=== PATIENT | female | born 1955 | race Caucasian/White ===

== ENCOUNTER 2023-08-24 12:55 | Inpatient (IN) | payer MEDICARE, SELFPAY ==
[2023-08-24 13:01] VITALS: BP 111/73; BP 114/64; PULSE 67; PULSE 73; RESP 16; TEMP 36.8; O2SAT 94; O2SAT 97; BMI 23.0
--- NOTE | 2023-08-24 13:10 | ED_ITS ---
HPI - Psych General Chief Complaint: Psychiatric Symptoms Stated Complaint: SEC 12,RECENT SI ATTEMPT,CALM/COOP PER EMS Time Seen by Provider: 08/24/23 13:01 Source: patient Mode of arrival: EMS Limitations: no limitations History of Present Illness HPI Narrative: Comes to the emergency room on a Section 12 from home. Patient's neighbors called EMS, patient has no heat at home except for space heaters, patient is not able to obtain food for herself. Patient had a suicidal attempt approximately 2 weeks ago. Patient states that she turned on the gas stove on, and was hoping that she would . Patient states that her neighbors keep checking on her, they were worried about her and therefore they called the ambulance. At this time, patient states that she does have suicidal ideation , no HI. Patient denied trying to hurt herself today or in the last few days. Related Data Allergies Allergy/AdvReac Type Severity Reaction Status Date / Time No Known Allergies Allergy Verified 08/24/23 13:03 Review of Systems 2 Review of Systems: Constitutional : No Weight loss, No Fever, No Chills, No Night Sweats, No Fatigue, No Malaise ENT/Mouth : No Hearing loss, No Ear Pain, No Nasal Congestion, No Sinus Pain, No Hoarseness, No sore throat, No Rhinorrhea, No Swallowing Difficulty Eyes: No Eye Pain, No Swelling, No Redness, No Foreign Body, No Discharge, No Vision Changes Cardiovascular : No Chest Pain, No SOB, No Dyspnea on Exertion, No Orthopnea, No Edema, No Palpitations Respiratory : No Cough, No Sputum, No Wheezing, No Smoke Exposure, No Dyspnea Gastrointestinal : No Nausea, No Vomiting, No Diarrhea, No Constipation, No abdominal Pain, No Hematochezia, No Melena Genitourinary : no irregular bleeding, No Dysuria, No Urinary Frequency, No Hematuria, No Urinary Incontinence, No Urgency, No Flank Pain, No Urinary Flow Changes, No Hesitancy Musculoskeletal : No joint pain, No Myalgias, No Joint Swelling Skin : No Skin Lesions, No rash Neuro : No Weakness, No Numbness, No Paresthesias, No Loss of Consciousness, No Dizziness, No Headache Psych : No Anxiety/Panic, depressed, complaining of SI, no HI, social issues: No heat in her place, unable to find food for herself Heme/Lymph: No Bruising, No Bleeding,No Lymphadenopathy Endocrine : No Polyuria, No Polydipsia, No Temperature Intolerance [facility] Past Medical History Medical History (Updated 08/24/23 @ 15:13 by Rosa Maria Gilliland MD) Suicide attempt Social History Social History Advance Directives: No Advance Directives Information Provided: No Physical Exam 2 Vital Signs: Vital Signs: Last Vital Signs Temp 98.3 F 08/24/23 13:01 Pulse 73 08/24/23 13:01 Resp 16 08/24/23 13:01 BP 111/73 08/24/23 13:01 Pulse Ox 94 08/24/23 13:01 O2 Del Method Room Air 08/24/23 13:01 BMI result Body Mass Index 23.0 Const: Other: Appearance: Alert. Oriented X3. No acute distress. Eyes: Pupils equal, round and reactive to light. ENT: Pharynx normal. Neck: Normal inspection. Neck supple. No lymph nodes noted. No crepitus CVS: Normal heart rate and rhythm. Pulses normal. Normal S1 and S2 Respiratory: No respiratory distress. Breath sounds normal. No Wheezing. No rales Abdomen: Soft and nontender. No rigidity. No distention. Skin: Skin warm and dry. Normal skin color. Normal skin turgor. Extremities: No lower extremity edema. No Lacerations. No Rash Neuro: Oriented X 3. No motor deficit. No sensory deficit. Moving all extremities. No slurred speech. CN 2 through 12 grossly intact Psych: calm, cooperative, normal affect Course Course Course Narrative: -all of patient's labs pending -patient is on a Section 12 started out in the community -care team consult pending Medical Decision Making Medical Decision Making MDM Narrative: -15:12: Of patient's blood work pending. -patient's urinalysis positive for UTI, given p.o. cefuroxime. Differential Diagnosis Differential Diagnoses: The differential diagnosis associated with the presentation includes (Anxiety, depression, suicidal ideation) Admission/Observation Consideration of admission/observation: Escalation of care including admission/observation considered (Patient is on a Section 12, disposition pending on care team) Lab Data 08/24/23 14:53 08/24/23 14:53 Labs: Lab Results 08/24/23 Range/Units 14:53 Urine Color Yellow Urine Appearance Cloudy Urine pH 6.0 (5.0-9.0) Ur Specific [place] 1.015 (1.005-1.025) Urine Protein Negative (Neg-Trace) mg/dL Urine Glucose (UA) Negative (Negative) mg/dL Urine Ketones Negative (Negative) mg/dL Urine Blood Small (1+) H (Negative) Urine Nitrite Positive H (Negative) Ur Leukocyte Esterase Large (3+) H (Negative) Urine Opiates Screen Not Detected (Not Detect) Urine Fentanyl Screen Not Detected (Not Detect) Ur Barbiturates Screen Not Detected (Not Detect) Ur Phencyclidine Scrn Not Detected (Not Detect) Ur Amphetamines Screen Not Detected (Not Detect) U Benzodiazepines Scrn Not Detected (Not Detect) Urine Cocaine Screen Not Detected (Not Detect) U Marijuana (THC) Screen POSITIVE H (Not Detect) Discharge Plan Discharge Clinical Impression: Suicidal ideation, Urinary tract infection Patient Disposition: Still a Patient
[2023-08-24 15:00] LABS: MANUAL DIFF FLAG NO
[2023-08-24 15:03] LABS: Appearance Urine Cloudy; Color Urine Yellow; Glucose Urine UA Negative (Negative); Leukocyte Esterase Urine Large (3+) (Negative); Nitrite Urine Positive (Negative); Specific Gravity - Urine 1.015 (1.005-1.025); UMIC TRIGGER UACC YES; Urine Blood Small (1+) (Negative); Urine Ketones Negative (Negative); Urine Protein Negative (Neg-Trace)
[2023-08-24 15:09] LABS: Amphetamine Screen Urine Not Detected (Not Detect); Bacteria Urine 4+ (None Seen); Barbiturates, Urine Not Detected (Not Detect); Benzodiazepines Screen Urine Not Detected (Not Detect); Cannabinoid Screen Urine POSITIVE (Not Detect); Cocaine Screen Urine Not Detected (Not Detect); Fentanyl, urine Not Detected (Not Detect); Hyaline Casts Urine 0-2 /LPF (0-2); Opiate Screen Urine Not Detected (Not Detect); Phencyclidine Screen Urine Not Detected (Not Detect); RBC Urine 0-2 /HPF (0-2); UACC Culture Trigger YES; WBC Urine >50 /HPF (0-5)
[2023-08-24 15:12] LABS: Basophils Absolute Auto 0.1 X10*3/uL (0.0-0.2); Basophils Percent Auto 0.9 % (0-2); Eosinophils Absolute Auto 0.2 X10*3/uL (0.0-0.4); Eosinophils Percent Auto 1.9 % (0-4); Hematocrit 37.4 % (37.0-47.0); Hemoglobin 11.6 g/dl (12.0-16.0); Imm Gran Abs Auto 0.04 X10*3/uL (0.00-0.03); Imm Gran Pct Auto 0.4 % (0.0-0.4); Lymphocytes Percent Auto 21.6 % (20-40); Mean Corpuscular Hemoglobin 30.2 pg (27.0-33.0); Mean Corpuscular Volume 97.4 fL (80.0-98.0); Monocytes Absolute Auto 0.7 X10*3/uL (0.1-1.2); Monocytes Percent Auto 7.2 % (2-11); Neutrophils Absolute Auto 6.3 x10*3/uL (2.0-8.3); Platelet Count 384 X10*3/uL (160-400); Red Blood Count 3.84 X10*6/uL (4.20-5.50); Red Cell Distribution Width 12.6 % (11.0-16.0); White Blood Count 9.3 X10*3/uL (4.8-10.8)
[2023-08-24 15:16] LABS: Ethanol < 10 mg/dL
--- NOTE | 2023-08-24 15:16 | PC.NURSE ---
pt calm and cooperative, alert and oriented. reports prior suicide attempt a couple of weeks ago. brought in by EMS on Sec 12 due to unsafe living conditions reported by neighbors including lack of heat, and inability to get food on their own. In Pod pt denies SI at this time. Labs drawn, pending CARE team marisol
[2023-08-24 15:18] LABS: Alanine Aminotransferase 10 U/L (0-31); Albumin Level 3.4 g/dL (3.5-5.0); Alkaline Phosphatase 64 U/L (39-117); Anion Gap 10 (12-20); Aspartate Amino Transferase 18 U/L (5-31); Bilirubin Direct < 0.2 mg/dL (0.0-0.5); Bilirubin Total 0.2 mg/dL (0.0-1.0); Blood Urea Nitrogen 14 mg/dL (9-16); Carbon Dioxide 29 mmol/L (22-29); Chloride 109 mmol/L (96-108); Creatinine Clr Calc Pharmacy 62.6; Estimated Glomerular Filt Rate > 60; Glucose Random 115 mg/dL (60-115); Potassium 4.1 mmol/L (3.3-5.1); Sodium 144 mmol/L (135-145); Total Protein 6.6 g/dL (6.5-8.0)
[2023-08-24] MEDS: cefuroxime axetiL 500 MG TABLET PO ×2 (15:46→20:44)
[2023-08-24 15:58] LABS: Acetaminophen LAB < 3 mcg/mL (<30); Salicylate < 5.0 mg/dL (15-30)
--- NOTE | 2023-08-24 16:42 | ECG_ITS ---
Test Reason : prolonged QT check Blood Pressure : / mmHG Vent. Rate : 060 BPM Atrial Rate : 060 BPM P-R Int : 166 ms QRS Dur : 074 ms QT Int : 416 ms P-R-T Axes : 086 002 067 degrees QTc Int : 416 ms Normal sinus rhythm Normal ECG No previous ECGs available Referred By: Rosa Maria Gilliland Electronically Signed By:Dawit Sanon
--- NOTE | 2023-08-24 17:39 | PC.NURSE ---
pt has been resting in bed this afternoon. Medicated per NOV with ABX for UTI. pt aware of plan. In-patient bed search pending. EKG pending machine availability from Main ED
[2023-08-24 19:11] LABS: COVID-19 Test Negative (Negative); IDNOW Serial# 08D9AD1C
[2023-08-24 20:38] VITALS: BP 107/55; PULSE 63; RESP 18; TEMP 37.1; O2SAT 96
--- NOTE | 2023-08-24 23:25 | PC.NURSE ---
Assumed care of pt at 1900. PT alert and oriented. provided dinner tray at 1999- chopped as ordered. PT denies SI/HI. Medicated as per NOV. Plan of care ongoing
[2023-08-25 05:52] VITALS: BP 104/56; PULSE 61; RESP 16; TEMP 36.4; O2SAT 93
[2023-08-25] MEDS: cefuroxime axetiL 500 MG TABLET PO ×2 (08:10→20:56)
--- NOTE | 2023-08-25 08:27 | PC.NURSE ---
Pt ate breakfast, took medications as prescribed, voices no other concerns at this time. awaiting dispo.
[2023-08-25 09:40] VITALS: BP 120/57; PULSE 66; RESP 18; TEMP 36.7; O2SAT 96
[2023-08-25] MEDS: ARIPiprazole 10 MG TABLET PO ×2 (09:43→20:56)
[2023-08-25] MEDS: Escitalopram Oxalate 10 MG TABLET PO (09:43)
[2023-08-25] MEDS: Apixaban 5 MG TABLET PO ×2 (09:43→20:56)
--- NOTE | 2023-08-25 13:31 | PC.ADMIT ---
Lianet is a 67 year old female that was evaluated for crisis at [facility] at the request of a neighbor. Lianet was admitted to the unit at 09:00 on a 12b for unspecified adjustment disorder and depression. The precipitant of admission consists of Lianet reportedly exhibiting inability to care for herself and her surroundings evidenced by medication non-compliance, unsafe housing, no working toilet or central heat supply, hoarding and short term memory issues. Lianet is alert and oriented to person, place and situation but not time. Affect is pleasant but depressed, she denies hallucinations. Lianet reports her sleep is broken and appetite is good. Lianet reports no substance use but tox is positive for THC. She says that she had a suicide attempt approximately 4 months ago triggered by depression. Physical complaints denied, patient placed on 15 minute checks for safety.
--- NOTE | 2023-08-25 16:58 | P.HPPS_ITS ---
HPI Date of Service: 08/25/23 Chief Complaint: SEC 12,RECENT SI ATTEMPT,CALM/COOP PER EMS Sources of Information: patient interviewed, chart reviewed and crisis/core team assessment reviewed Additional Sources of Information: Willa Casas, [facility], [facility]. [phone] Ext. [phone]. HPI Subjective Notes: Conditional Voluntary Healthcare Proxy: Yes Guardianship: No Medical Problems Affecting Mental Status: Yes (Willa [facility] reports pt has Korsakoff's) Narrative: 67 yo female, section 12A from her home at the request of her neighbor and HCP for inability to care for herself, short term memory loss, medicine noncompliance, not attending follow up appts and living in an unsafe environment. Per Willa Casas [facility] pt's home is unable to be lived in as there is no heat-she is attempting to use space heaters, no electricity, no running water, no working telephone, no bathroom access. Gas has been shut off. Pt has not paid taxes so her town is prepared to auction off the home. They are told if she is found in the home she will be arrested. The home is unclean and corroded batteries have been found in her freezer. Pt was recently hospitalized with Darcy Ca~ 4weeks, about 4 months ago, s/p suicide attempt where she attempted to kill herself using her gas stove. She was found with her face covered by a blanket, with CO2 poisoning. This is reported after she drank 1/2 bottle of whiskey. She was discharged to her friends home but left the home to return to her home. She has no food in the home, is not capable of shopping and is not attending to her ADL's. 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 Pt, who met with caryl Crouch, and Ese Rodriguez RN is pleasant and well engaged in discussion. She reports feeling happy to be here, willing to receive help and suggestions on making her life better. She describes herself as a loner, but does want help with meals and housekeeping. She reports a recent ~40Lb weight loss which was intentional and discussed her recent suicide attempt, stating she felt comfortable to do so. She denies current SI, plan or intent. Past Psychiatric History: IP: Roby~ 2 weeks ago s/p putting her head in her gas stove. OP: None current. Reports hx of therapy several years ago. Med Trials: Affirms SA: Put head in gas stove ~2 weeks ago. Medical Evaluation Reviewed: Yes [facility] Medical History (Updated 08/25/23 @ 17:58 by Gris Guzman, SPUD GRADER) Korsakoff syndrome Alcohol abuse Recurrent major depression-severe Suicide attempt Narrative: L knee pain CVA she thinks in 2021-Eliquis Smoker Shoulder incision where a mole was recently removed Family History: Not reviewed Social History: Born in [place], in 1955. Attended parochial and public schools. Two brothers, both live on the [facility]. States she has spent her life caring for elders through their passing . My brothers did not come to either of my parents funerals . No children. 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 Two dogs, Infidel and Zalet (who are with friends now). Pt enjoys coloring, drawing, writing poetry and dogs of all kinds. Pt reports her friend and neighbor Katina Last is HCP and helps her at home. She asks that we not contact her brothers. Substance History: alcohol, cannabis Trauma History: Not reviewed Diagnostics Vital Signs (24Hr): Vital Signs - 24 hr 08/24/23 20:38 08/25/23 05:52 08/25/23 09:40 Temperature 98.7 F 97.5 F 98.0 F Pulse Rate 63 61 66 Respiratory Rate 18 16 18 Blood Pressure 107/55 L 104/56 L 120/57 L Pulse Oximetry 96 93 96 Oxygen Delivery Method Room Air Room Air Room Air BMI result Body Mass Index 23.0 Labs 08/24/23 14:53 08/24/23 14:53 Labs: Laboratory Results - last 48 hr 08/24/23 08/24/23 14:53 18:44 WBC 9.3 RBC 3.84 L Hgb 11.6 L Hct 37.4 MCV 97.4 MCH 30.2 MCHC 31.0 RDW 12.6 Plt Count 384 MPV 10.0 Immature Gran % (Auto) 0.4 Neut % (Auto) 68.0 Lymph % (Auto) 21.6 Hyde % (Auto) 7.2 Eos % (Auto) 1.9 Baso % (Auto) 0.9 Lymph # (Auto) 2.0 Hyde # (Auto) 0.7 Eos # (Auto) 0.2 Baso # (Auto) 0.1 Abs Immat Gran (auto) 0.04 H Absolute Neuts (auto) 6.3 Absolute Nucleated RBC 0.000 Nucleated RBC % (auto) 0.0 Sodium 144 Potassium 4.1 Chloride 109 H Carbon Dioxide 29 Anion Gap 10 L BUN 14 Creatinine 0.73 Estim Creat Clear Calc 62.6 Estimated GFR > 60 Random Glucose 115 Calcium 9.0 Total Bilirubin 0.2 Direct Bilirubin < 0.2 AST 18 ALT 10 Alkaline Phosphatase 64 Total Protein 6.6 Albumin 3.4 L Urine Color Yellow Urine Appearance Cloudy Urine pH 6.0 Ur Specific [place] 1.015 Urine Protein Negative Urine Glucose (UA) Negative Urine Ketones Negative Urine Blood Small (1+) H Urine Nitrite Positive H Ur Leukocyte Esterase Large (3+) H Urine RBC 0-2 Urine WBC >50 H Ur Squamous Epith Cells 6-10 Urine Bacteria 4+ Hyaline Casts 0-2 Salicylates < 5.0 L Urine Opiates Screen Not Detected Urine Fentanyl Screen Not Detected Acetaminophen < 3 Ur Barbiturates Screen Not Detected Ur Phencyclidine Scrn Not Detected Ur Amphetamines Screen Not Detected U Benzodiazepines Scrn Not Detected Urine Cocaine Screen Not Detected U Marijuana (THC) Screen POSITIVE H Ethyl Alcohol < 10 COVID-19 (GABRIELA) Negative COVID-19 Clin Com See Note Meds/Allergies Meds Home Medications Medication Instructions Recorded Confirmed Type apixaban 5 mg tablet (Eliquis) 5 mg PO BID 08/24/23 08/24/23 History aripiprazole 10 mg tablet 10 mg PO QPM 08/24/23 08/24/23 History escitalopram oxalate 10 mg tablet 10 mg PO DAILY depressive disorder 08/24/23 08/24/23 History trazodone 100 mg tablet 100 mg PO BEDTIME 08/24/23 08/24/23 History Allergies Allergies Allergy/AdvReac Type Severity Reaction Status Date / Time No Known Allergies Allergy Verified 08/24/23 13:03 Mental Status Exam Mental Status Exam Patient Appearance: Fatigued Patient Orientation: Person and Place Level of Consciousness: Alert Patient Behavior: Appropriate, Talkative, Cooperative and Good Eye Contact Mood Description: Calm Affect Description: Calm Ability to Follow Directions: Fair Speech Pattern: Spontaneous Speech Memory Description: Remote Impaired, Episodic Impaired and Recent Impaired Hallucinations: None Delusions: Not Present Thought Process: Disoriented and Slowed Thinking Thought Content: positive for Circumstantial and positive for Suicidal Ideation (denies) Depressive Symptoms: Diff. Making Decisions, Significant Weight Loss, Increased Fatigue and Loss of Energy Judgement: Poor Assessment & Plan Assessment & Plan (1) Recurrent major depression-severe: Status: Acute Code(s): F33.2 - Major depressive disorder, recurrent severe without psychotic features (2) Mild cognitive impairment: Status: Acute Code(s): G31.84 - Mild cognitive impairment of uncertain or unknown etiology Plan 67 yo female, living in an unsafe situation at home without heat, phone, water, electric at times, and unable to care for herself. Suicide attempt via carbon monoxide and whiskey ~4 months ago with a 4 week admit to [facility]. Neighbors called 911 for assistance which pt is willing to accept at this time. Neighbors report pt is not taking meds, not eating, not participating in ADL care and hoarding in the home. As she has not paid taxes the home will be auctioned by the [facility] and she has been informed she is not to be in the home at any time. Plan: CV 15. 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 Guadarrama Connect with OP supports, ?residential care Patient educated on: other Informed Consent: does not understand Reason for continued inpatient stay Substantial Risk for: harm to self, rapid decompensation and med/psych decompensation Statement Statement: I have reviewed the history and physical and performed a pertinent examination on my patient. No changes have occurred unless specified. If the History and Physical was not performed prior to admission, the Hospitalist's service will be consulted for completing the admission physical. Time Spent With Patient Time: Total time managing care of this patient today ____ minutes.
[2023-08-25 18:00] VITALS: BP 127/61; PULSE 66; RESP 18; TEMP 37.1; O2SAT 96
[2023-08-25] MEDS: traZODone HCL 100 MG TABLET PO (20:56)
[2023-08-25] MEDS: Thiamine HCL 100 MG TABLET PO (20:56)
[2023-08-26 08:00] VITALS: BP 111/62; PULSE 67; RESP 16; TEMP 36.4; O2SAT 94
[2023-08-26 08:11] LABS: Glucose, Whole Blood 97 mg/dL (60-115)
[2023-08-26] MEDS: Apixaban 5 MG TABLET PO ×2 (08:34→20:55)
[2023-08-26] MEDS: Folic Acid 1 MG TABLET PO (08:35)
[2023-08-26] MEDS: cefuroxime axetiL 500 MG TABLET PO ×2 (08:35→20:55)
[2023-08-26] MEDS: Escitalopram Oxalate 10 MG TABLET PO (08:35)
[2023-08-26] MEDS: Thiamine HCL 100 MG TABLET PO ×2 (08:35→20:55)
[2023-08-26] MEDS: Multivitamin TABLET 1 TAB PO (08:35)
[2023-08-26 08:42] LABS: Ammonia 33 umol/L (13-55); Estimated Average Glucose 97 mg/dL
[2023-08-26 09:00] LABS: Alanine Aminotransferase 12 U/L (0-31); Alkaline Phosphatase 74 U/L (39-117); Anion Gap 11 (12-20); Aspartate Amino Transferase 18 U/L (5-31); Bilirubin Total 0.3 mg/dL (0.0-1.0); Blood Urea Nitrogen 18 mg/dL (9-16); Calcium 9.8 mg/dL (8.4-10.2); Carbon Dioxide 27 mmol/L (22-29); Chloride 106 mmol/L (96-108); Cholesterol 265 mg/dL (<200); Creatinine Clr Calc Pharmacy 63.5; Estimated Glomerular Filt Rate > 60; Glucose Fasting 94 mg/dL (60-99); HDL Cholesterol 65 mg/dL (>40); Iron 38 mcg/dL (30-160); LDL Cholesterol Calculated 181 mg/dL (<100); Magnesium 2.1 mg/dL (1.6-2.6); Percent Iron Saturation 16 % (15-50); Potassium 4.3 mmol/L (3.3-5.1); Sodium 140 mmol/L (135-145); Total Iron Binding Capacity 236 mcg/dL (228-428); Total Protein 7.8 g/dL (6.5-8.0); Triglycerides 99 mg/dL (<150); Unsaturated Iron Binding 198 ug/dL
[2023-08-26 09:09] LABS: HIV AB/AG Nonreactive (Nonreactive); HIV Num 1 0.05 S/CO (0.00-0.99); Syphilis Screen Nonreactive (Nonreactive)
[2023-08-26 09:23] LABS: Thyroid Stimulating Hormone 1.17 uIU/mL (0.32-4.0); Vitamin D 25-OH Total 28.3 ng/mL (>30)
[2023-08-26 09:24] LABS: Folate 13.2 ng/mL (> or = 4.0); Vitamin B12 585 pg/mL (200-900)
--- NOTE | 2023-08-26 16:23 | P.PNPSI_ITS ---
Subjective Subjective Date of Service: 08/26/23 Reason For Visit: SEC 12,RECENT SI ATTEMPT,CALM/COOP PER EMS Subjective Notes: Conditional Voluntary Healthcare Proxy: No Guardianship: No Medical Problems Affecting Mental Status: No Interim History: Orienting herself to the unit. Enjoyed a visit from [facility] therapy dog. Discussed wanting help with housing, referrals for out patient care and just getting back on track, I am not sure where it all went wrong. Ladi and Jose Espinosa [facility] spoke with HCP Katina Last [phone] who reports she believes pt is unable to make clear decisions regarding her care and states pt admits to this. Katina described some of pt's drinking history, recent suicide attempt and a bad hospital experience with [facility]. Upon discharge, pt was supposed to stay with a friend but convinced her driver recruiter to bring her back to her home. By history, pt has a long history of drinking, beginning at ~age 26, never heavy drinking, however recently she will drink until she passes out. Friends have seen a major exchange operator the past 8 months with pt's cognition- thinking something was terribly wrong and memory was significantly effected. Pt was also having difficulty caring for her two dogs who are now in foster homes. Katina was shocked to learn of the loss of pt's home in 2019-pt was not truthful with her friends about her struggles with the home and Katina believes that she has a court date sometime between 08/31 and 09/08 for this issue. Pt's brothers are estranged. They have been silent when she has asked for help. Pt will need safe housing. Katina believes pt would like to live as close to [place] as possible. She will visit with a copy of HCP on 08/27. MOCA completed at 21. Medication Compliance: Yes Side effects from medications: No Attending Groups: No Review of Systems Acute medical concerns: No Medical Review of Systems: unchanged Review of Systems Review of Systems Yes all other systems are reviewed and are negative Mental Status Exam Mental Status Exam Patient Appearance: Fatigued Patient Orientation: Person and Place Level of Consciousness: Alert Patient Behavior: Appropriate, Talkative, Cooperative and Good Eye Contact Mood Description: Calm Affect Description: Calm Ability to Follow Directions: Fair Speech Pattern: Spontaneous Speech Memory Description: Remote Impaired, Episodic Impaired and Recent Impaired Hallucinations: None Delusions: Not Present Thought Process: Disoriented and Slowed Thinking Thought Content: positive for Circumstantial and positive for Suicidal Ideation (denies) Depressive Symptoms: Diff. Making Decisions, Significant Weight Loss, Increased Fatigue and Loss of Energy Judgement: Poor Diagnostics Vital Signs (24Hr): Vital Signs - 24 hr 08/25/23 18:00 08/26/23 08:00 Temperature 98.7 F 97.5 F Pulse Rate 66 67 Respiratory Rate 18 16 Blood Pressure 127/61 111/62 Pulse Oximetry 96 94 Oxygen Delivery Method Room Air Room Air BMI result Body Mass Index 23.0 Labs 08/24/23 14:53 08/26/23 08:13 Labs: Laboratory Results - last 48 hr 08/24/23 08/26/23 08/26/23 18:44 07:54 08:13 Sodium 140 Potassium 4.3 Chloride 106 Carbon Dioxide 27 Anion Gap 11 L BUN 18 H Creatinine 0.72 Estim Creat Clear Calc 63.5 Estimated GFR > 60 POC Glucose 97 Fasting Glucose 94 Estimat Average Glucose 97 Hemoglobin A1c % 5.0 Calcium 9.8 D Magnesium 2.1 Iron 38 TIBC 236 % Saturation 16 Unsat Iron Binding 198 Total Bilirubin 0.3 AST 18 ALT 12 Alkaline Phosphatase 74 Ammonia 33 Total Protein 7.8 Albumin 4.0 Triglycerides 99 Cholesterol 265 H LDL Cholesterol, Calc 181 H HDL Cholesterol 65 Vitamin B12 585 25-OH Vitamin D Total 28.3 L Folate 13.2 TSH 1.17 T.pallidum Ab (EIA) Nonreactive COVID-19 (GABRIELA) Negative COVID-19 Clin Com See Note HIV 1&2 Ab/P24 Ag 4thGn Nonreactive Medications Medications Current Medications Acetaminophen (Acetaminophen 325 Mg Tablet) 650 mg PO Q6H PRN PRN Reason: Headache/Pain Mild Scale (1-3) Al Hydroxide/Mg Hydroxide (Magnesium Hydrox/Alum Hydrox 30 Ml Oral.Susp) 30 ml PO Q6H PRN PRN Reason: Heartburn/Nausea Apixaban (Apixaban 5 Mg Tablet) 5 mg PO BID [facility] Last Admin: 08/26/23 08:34 Dose: 5 mg Aripiprazole (Aripiprazole 10 Mg Tablet) 10 mg PO BEDTIME [facility] Last Admin: 08/25/23 20:56 Dose: 10 mg Cefuroxime Axetil (Cefuroxime Axetil 500 Mg Tablet) 500 mg PO BID [facility] Last Admin: 08/26/23 08:35 Dose: 500 mg Escitalopram Oxalate (Escitalopram Oxalate 10 Mg Tablet) 10 mg PO DAILY [facility] Last Admin: 08/26/23 08:35 Dose: 10 mg Folic Acid (Folic Acid 1 Mg Tablet) 1 mg PO DAILY [facility] Last Admin: 08/26/23 08:35 Dose: 1 mg Haloperidol (Haloperidol 5 Mg Tablet) 5 mg PO BID PRN PRN Reason: severe agitation Hydroxyzine HCl (Hydroxyzine Hcl 25 Mg Tablet) 25 mg PO Q6H PRN PRN Reason: Anxiety Lorazepam (Lorazepam 1 Mg Tablet) 1 mg PO BID PRN PRN Reason: severe agitation Magnesium Hydroxide (Milk Of Magnesia 30 Ml Oral.Susp) 30 ml PO DAILY PRN PRN Reason: Constipation Multivitamins/Vitamin C (Multivitamin Tablet) 1 tab PO DAILY [facility] Last Admin: 08/26/23 08:35 Dose: 1 tab Nicotine Polacrilex (Nicotine Polacrilex Lozenge 2 Mg Lozenge) 2 mg BUCCAL Q2H PRN PRN Reason: Nicotine Cravings Thiamine HCl (Thiamine Hcl 100 Mg Tablet) 100 mg PO BID [facility] Last Admin: 08/26/23 08:35 Dose: 100 mg Trazodone HCl (Trazodone Hcl 50 Mg Tablet) 50 mg PO BEDTIME PRN PRN Reason: Insomnia Trazodone HCl (Trazodone Hcl 100 Mg Tablet) 100 mg PO BEDTIME [facility] Last Admin: 08/25/23 20:56 Dose: 100 mg Allergies Allergies Allergy/AdvReac Type Severity Reaction Status Date / Time No Known Allergies Allergy Verified 08/24/23 13:03 Assessment & Plan Assessment & Plan (1) Recurrent major depression-severe: Status: Acute Code(s): F33.2 - Major depressive disorder, recurrent severe without psychotic features (2) Mild cognitive impairment: Status: Acute Code(s): G31.84 - Mild cognitive impairment of uncertain or unknown etiology Plan 67 yo female, living in an unsafe situation at home without heat, phone, water, electric at times, and unable to care for herself. Suicide attempt via carbon monoxide and whiskey ~4 months ago with a 4 week admit to [facility]. Neighbors called 911 for assistance which pt is willing to accept at this time. Neighbors report pt is not taking meds, not eating, not participating in ADL care and hoarding in the home. As she has not paid taxes the home will be auctioned by [facility] and she has been informed she is not to be in the home at any time. Plan: CV 15. 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 Guadarrama Connect with OP supports, ?residential care 08/26/23 Continue current regime and plan. Diagnostics reviewed Cholesterol 265, LDL 181. Atorvastatin 10 mg daily Vit D3 28.3 D3 10 mcg daily Patient educated on: therapeutic strategies and other Informed Consent: does not understand and further education needed Reason for continued inpatient stay Substantial Risk for: med/psych decompensation Time Spent With Patient Time: Total time managing care of this patient today ____ minutes.
--- NOTE | 2023-08-26 16:36 | PC.NURSE ---
I assumed care of this patient at 15:30, pt is currently walking the halls, in no apparent distress, respirations even and unlabored. Plan of care ongoing.
[2023-08-26 18:00] VITALS: BP 112/65; PULSE 62; RESP 16; TEMP 36.3; O2SAT 98
[2023-08-26 19:45] VITALS: BP 122/64; PULSE 64; RESP 18; TEMP 36.3; O2SAT 95
[2023-08-26] MEDS: traZODone HCL 100 MG TABLET PO (20:55)
[2023-08-26] MEDS: Atorvastatin Calcium 10 MG TABLET PO (20:55)
[2023-08-26] MEDS: ARIPiprazole 10 MG TABLET PO (20:55)
[2023-08-27 06:00] VITALS: BP 115/56; PULSE 63; RESP 16; TEMP 36.3; O2SAT 98
[2023-08-27 07:00] VITALS: BMI 23.3
[2023-08-27 08:22] LABS: Glucose, Whole Blood 96 mg/dL (60-115)
[2023-08-27] MEDS: Multivitamin TABLET 1 TAB PO (08:44)
[2023-08-27] MEDS: Thiamine HCL 100 MG TABLET PO ×2 (08:44→20:40)
[2023-08-27] MEDS: Apixaban 5 MG TABLET PO ×2 (08:44→20:40)
[2023-08-27] MEDS: cefuroxime axetiL 500 MG TABLET PO ×2 (08:44→20:40)
[2023-08-27] MEDS: Escitalopram Oxalate 10 MG TABLET PO (08:45)
[2023-08-27] MEDS: Folic Acid 1 MG TABLET PO (08:45)
[2023-08-27] MEDS: Cholecalciferol (Vitamin D3) 10 MCG TABLET PO (08:45)
[2023-08-27 18:00] VITALS: BP 108/67; PULSE 65; RESP 16; TEMP 36.9; O2SAT 99
--- NOTE | 2023-08-27 18:52 | P.PNPSI_ITS ---
Subjective Subjective Date of Service: 08/27/23 Reason For Visit: SEC 12,RECENT SI ATTEMPT,CALM/COOP PER EMS Subjective Notes: Conditional Voluntary Healthcare Proxy: Yes Guardianship: No Medical Problems Affecting Mental Status: No Interim History: Reviewed discussion with HCP with Lianet who is in agreement. I don't know how it all happened, I used to be able to do a lot, then things changed. I don't know why, but I am grateful to have everyone to help me. Denies pain, denies current sx of concern. Enjoys room-mate and thanks team for giving her this room-mate. Engaged with team, peers, milieu Confusion evident. Tw has to introduce self and role each time we meet, yes, I think I have seen you before I love living with all of you. Medication Compliance: Yes Side effects from medications: No Attending Groups: Intermittent Review of Systems Acute medical concerns: No Medical Review of Systems: unchanged Review of Systems Review of Systems Yes all other systems are reviewed and are negative Mental Status Exam Mental Status Exam Patient Appearance: Fatigued Patient Orientation: Person and Place Level of Consciousness: Alert Patient Behavior: Appropriate, Talkative, Cooperative and Good Eye Contact Mood Description: Calm Affect Description: Calm Ability to Follow Directions: Fair Speech Pattern: Spontaneous Speech Memory Description: Remote Impaired, Episodic Impaired and Recent Impaired Hallucinations: None Delusions: Not Present Thought Process: Disoriented and Slowed Thinking Thought Content: positive for Circumstantial and positive for Suicidal Ideation (denies) Depressive Symptoms: Diff. Making Decisions, Significant Weight Loss, Increased Fatigue and Loss of Energy Judgement: Poor Diagnostics Vital Signs (24Hr): Vital Signs - 24 hr 08/26/23 19:45 08/27/23 06:00 Temperature 97.3 F 97.4 F Pulse Rate 64 63 Respiratory Rate 18 16 Blood Pressure 122/64 115/56 L Pulse Oximetry 95 98 Oxygen Delivery Method Room Air Room Air BMI result Body Mass Index 23.3 Labs 08/24/23 14:53 08/26/23 08:13 Labs: Laboratory Results - last 48 hr 08/26/23 08/26/23 08/27/23 07:54 08:13 08:18 Sodium 140 Potassium 4.3 Chloride 106 Carbon Dioxide 27 Anion Gap 11 L BUN 18 H Creatinine 0.72 Estim Creat Clear Calc 63.5 Estimated GFR > 60 POC Glucose 97 96 Fasting Glucose 94 Estimat Average Glucose 97 Hemoglobin A1c % 5.0 Calcium 9.8 D Magnesium 2.1 Iron 38 TIBC 236 % Saturation 16 Unsat Iron Binding 198 Total Bilirubin 0.3 AST 18 ALT 12 Alkaline Phosphatase 74 Ammonia 33 Total Protein 7.8 Albumin 4.0 Triglycerides 99 Cholesterol 265 H LDL Cholesterol, Calc 181 H HDL Cholesterol 65 Vitamin B12 585 25-OH Vitamin D Total 28.3 L Folate 13.2 TSH 1.17 T.pallidum Ab (EIA) Nonreactive HIV 1&2 Ab/P24 Ag 4thGn Nonreactive Medications Medications Current Medications Acetaminophen (Acetaminophen 325 Mg Tablet) 650 mg PO Q6H PRN PRN Reason: Headache/Pain Mild Scale (1-3) Al Hydroxide/Mg Hydroxide (Magnesium Hydrox/Alum Hydrox 30 Ml Oral.Susp) 30 ml PO Q6H PRN PRN Reason: Heartburn/Nausea Apixaban (Apixaban 5 Mg Tablet) 5 mg PO BID [facility] Last Admin: 08/27/23 08:44 Dose: 5 mg Aripiprazole (Aripiprazole 10 Mg Tablet) 10 mg PO BEDTIME [facility] Last Admin: 08/26/23 20:55 Dose: 10 mg Atorvastatin Calcium (Atorvastatin Calcium 10 Mg Tablet) 10 mg PO BEDTIME [facility] Last Admin: 08/26/23 20:55 Dose: 10 mg Cefuroxime Axetil (Cefuroxime Axetil 500 Mg Tablet) 500 mg PO BID [facility] Last Admin: 08/27/23 08:44 Dose: 500 mg Escitalopram Oxalate (Escitalopram Oxalate 10 Mg Tablet) 10 mg PO DAILY [facility] Last Admin: 08/27/23 08:45 Dose: 10 mg Folic Acid (Folic Acid 1 Mg Tablet) 1 mg PO DAILY [facility] Last Admin: 08/27/23 08:45 Dose: 1 mg Haloperidol (Haloperidol 5 Mg Tablet) 5 mg PO BID PRN PRN Reason: severe agitation Hydroxyzine HCl (Hydroxyzine Hcl 25 Mg Tablet) 25 mg PO Q6H PRN PRN Reason: Anxiety Lorazepam (Lorazepam 1 Mg Tablet) 1 mg PO BID PRN PRN Reason: severe agitation Magnesium Hydroxide (Milk Of Magnesia 30 Ml Oral.Susp) 30 ml PO DAILY PRN PRN Reason: Constipation Multivitamins/Vitamin C (Multivitamin Tablet) 1 tab PO DAILY [facility] Last Admin: 08/27/23 08:44 Dose: 1 tab Nicotine Polacrilex (Nicotine Polacrilex Lozenge 2 Mg Lozenge) 2 mg BUCCAL Q2H PRN PRN Reason: Nicotine Cravings Thiamine HCl (Thiamine Hcl 100 Mg Tablet) 100 mg PO BID [facility] Last Admin: 08/27/23 08:44 Dose: 100 mg Trazodone HCl (Trazodone Hcl 50 Mg Tablet) 50 mg PO BEDTIME PRN PRN Reason: Insomnia Trazodone HCl (Trazodone Hcl 100 Mg Tablet) 100 mg PO BEDTIME [facility] Last Admin: 08/26/23 20:55 Dose: 100 mg Vitamin D (Cholecalciferol (Vitamin D3) 10 Mcg Tablet) 10 mcg PO DAILY [facility] Last Admin: 08/27/23 08:45 Dose: 10 mcg Allergies Allergies Allergy/AdvReac Type Severity Reaction Status Date / Time No Known Allergies Allergy Verified 08/24/23 13:03 Assessment & Plan Assessment & Plan (1) Recurrent major depression-severe: Status: Acute Code(s): F33.2 - Major depressive disorder, recurrent severe without psychotic features (2) Mild cognitive impairment: Status: Acute Code(s): G31.84 - Mild cognitive impairment of uncertain or unknown etiology Plan 67 yo female, living in an unsafe situation at home without heat, phone, water, electric at times, and unable to care for herself. Suicide attempt via carbon monoxide and whiskey ~4 months ago with a 4 week admit to [facility]. Neighbors called 911 for assistance which pt is willing to accept at this time. Neighbors report pt is not taking meds, not eating, not participating in ADL care and hoarding in the home. As she has not paid taxes [facility] and she has been informed she is not to be in the home at any time. Plan: CV 15. 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 Guadarrama Connect with OP supports, ?residential care 08/26/23 Continue current regime and plan. Diagnostics reviewed Cholesterol 265, LDL 181. Atorvastatin 10 mg daily Vit D3 28.3 D3 10 mcg daily 08/27/23 Continue current regime and plan Informed Consent: further education needed Reason for continued inpatient stay Substantial Risk for: rapid decompensation and med/psych decompensation Time Spent With Patient Time: Total time managing care of this patient today ____ minutes.
[2023-08-27] MEDS: traZODone HCL 100 MG TABLET PO (20:40)
[2023-08-27] MEDS: ARIPiprazole 10 MG TABLET PO (20:40)
[2023-08-27] MEDS: Atorvastatin Calcium 10 MG TABLET PO (20:40)
[2023-08-28 08:45] VITALS: BP 117/56; PULSE 66; RESP 16; TEMP 36.2; O2SAT 96
[2023-08-28] MEDS: Escitalopram Oxalate 10 MG TABLET PO (09:07)
[2023-08-28] MEDS: cefuroxime axetiL 500 MG TABLET PO ×2 (09:07→19:58)
[2023-08-28] MEDS: Folic Acid 1 MG TABLET PO (09:07)
[2023-08-28] MEDS: Thiamine HCL 100 MG TABLET PO ×2 (09:07→19:56)
[2023-08-28] MEDS: Cholecalciferol (Vitamin D3) 10 MCG TABLET PO (09:07)
[2023-08-28] MEDS: Apixaban 5 MG TABLET PO ×2 (09:07→19:57)
[2023-08-28] MEDS: Multivitamin TABLET 1 TAB PO (09:07)
[2023-08-28 09:52] LABS: Glucose, Whole Blood 116 mg/dL (60-115)
--- NOTE | 2023-08-28 15:22 | P.PNPSI_ITS ---
Subjective Subjective Date of Service: 08/28/23 Reason For Visit: SEC 12,RECENT SI ATTEMPT,CALM/COOP PER EMS Subjective Notes: Conditional Voluntary Healthcare Proxy: Yes Guardianship: No Medical Problems Affecting Mental Status: No Interim History: Intermittent confusion. Engaged in milieu, with peers and with team. Pt today talked of her thoughts that she will lose her home. She expressed sadness and states she never meant to lose her home and is unsure what she did wrong. Medication Compliance: Yes Side effects from medications: No Attending Groups: Intermittent Review of Systems Acute medical concerns: No Medical Review of Systems: unchanged Review of Systems Review of Systems Yes all other systems are reviewed and are negative Mental Status Exam Mental Status Exam Patient Appearance: Appropriate Patient Orientation: Person and Place Level of Consciousness: Alert Patient Behavior: Appropriate, Talkative, Cooperative and Good Eye Contact Mood Description: Calm and Sad Affect Description: Calm Ability to Follow Directions: Fair Speech Pattern: Spontaneous Speech Memory Description: Remote Impaired, Episodic Impaired and Recent Impaired Hallucinations: None Delusions: Not Present Thought Process: Disoriented and Slowed Thinking Thought Content: positive for Circumstantial and positive for Suicidal Ideation (denies) Depressive Symptoms: Diff. Making Decisions, Significant Weight Loss, Increased Fatigue and Loss of Energy Judgement: Poor Diagnostics Vital Signs (24Hr): Vital Signs - 24 hr 08/27/23 18:00 08/28/23 08:45 Temperature 98.4 F 97.1 F Pulse Rate 65 66 Respiratory Rate 16 16 Blood Pressure 108/67 117/56 L Pulse Oximetry 99 96 Oxygen Delivery Method Room Air Room Air BMI result Body Mass Index 23.3 Labs 08/24/23 14:53 08/26/23 08:13 Labs: Laboratory Results - last 48 hr 08/27/23 08/28/23 08:18 09:47 POC Glucose 96 116 H Medications Medications Current Medications Acetaminophen (Acetaminophen 325 Mg Tablet) 650 mg PO Q6H PRN PRN Reason: Headache/Pain Mild Scale (1-3) Al Hydroxide/Mg Hydroxide (Magnesium Hydrox/Alum Hydrox 30 Ml Oral.Susp) 30 ml PO Q6H PRN PRN Reason: Heartburn/Nausea Apixaban (Apixaban 5 Mg Tablet) 5 mg PO BID [facility] Last Admin: 08/28/23 09:07 Dose: 5 mg Aripiprazole (Aripiprazole 10 Mg Tablet) 10 mg PO BEDTIME [facility] Last Admin: 08/27/23 20:40 Dose: 10 mg Atorvastatin Calcium (Atorvastatin Calcium 10 Mg Tablet) 10 mg PO BEDTIME [facility] Last Admin: 08/27/23 20:40 Dose: 10 mg Cefuroxime Axetil (Cefuroxime Axetil 500 Mg Tablet) 500 mg PO BID [facility] Last Admin: 08/28/23 09:07 Dose: 500 mg Escitalopram Oxalate (Escitalopram Oxalate 10 Mg Tablet) 10 mg PO DAILY [facility] Last Admin: 08/28/23 09:07 Dose: 10 mg Folic Acid (Folic Acid 1 Mg Tablet) 1 mg PO DAILY [facility] Last Admin: 08/28/23 09:07 Dose: 1 mg Haloperidol (Haloperidol 5 Mg Tablet) 5 mg PO BID PRN PRN Reason: severe agitation Hydroxyzine HCl (Hydroxyzine Hcl 25 Mg Tablet) 25 mg PO Q6H PRN PRN Reason: Anxiety Lorazepam (Lorazepam 1 Mg Tablet) 1 mg PO BID PRN PRN Reason: severe agitation Magnesium Hydroxide (Milk Of Magnesia 30 Ml Oral.Susp) 30 ml PO DAILY PRN PRN Reason: Constipation Multivitamins/Vitamin C (Multivitamin Tablet) 1 tab PO DAILY [facility] Last Admin: 08/28/23 09:07 Dose: 1 tab Nicotine Polacrilex (Nicotine Polacrilex Lozenge 2 Mg Lozenge) 2 mg BUCCAL Q2H PRN PRN Reason: Nicotine Cravings Thiamine HCl (Thiamine Hcl 100 Mg Tablet) 100 mg PO BID [facility] Last Admin: 08/28/23 09:07 Dose: 100 mg Trazodone HCl (Trazodone Hcl 50 Mg Tablet) 50 mg PO BEDTIME PRN PRN Reason: Insomnia Trazodone HCl (Trazodone Hcl 100 Mg Tablet) 100 mg PO BEDTIME [facility] Last Admin: 08/27/23 20:40 Dose: 100 mg Vitamin D (Cholecalciferol (Vitamin D3) 10 Mcg Tablet) 10 mcg PO DAILY [facility] Last Admin: 08/28/23 09:07 Dose: 10 mcg Allergies Allergies Allergy/AdvReac Type Severity Reaction Status Date / Time No Known Allergies Allergy Verified 08/24/23 13:03 Assessment & Plan Assessment & Plan (1) Recurrent major depression-severe: Status: Acute Code(s): F33.2 - Major depressive disorder, recurrent severe without psychotic features (2) Mild cognitive impairment: Status: Acute Code(s): G31.84 - Mild cognitive impairment of uncertain or unknown etiology Plan 67 yo female, living in an unsafe situation at home without heat, phone, water, electric at times, and unable to care for herself. Suicide attempt via carbon monoxide and whiskey ~4 months ago with a 4 week admit to [facility]. Neighbors called 911 for assistance which pt is willing to accept at this time. Neighbors report pt is not taking meds, not eating, not participating in ADL care and hoarding in the home. As she has not paid taxes the home will be auctioned by the [facility] and she has been informed she is not to be in the home at any time. Plan: CV 15. 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 Guadarrama Connect with OP supports, ?residential care 08/26/23 Continue current regime and plan. Diagnostics reviewed Cholesterol 265, LDL 181. Atorvastatin 10 mg daily Vit D3 28.3 D3 10 mcg daily 08/28/23 Continue current regime and plan of care. Patient educated on: therapeutic strategies Informed Consent: further education needed Reason for continued inpatient stay Substantial Risk for: med/psych decompensation Time Spent With Patient Time: Total time managing care of this patient today ____ minutes.
[2023-08-28 16:29] VITALS: BP 107/58; PULSE 63; RESP 18; TEMP 36.3; O2SAT 97
[2023-08-28] MEDS: Acetaminophen 325 MG TABLET 650 MG PO (19:55)
[2023-08-28] MEDS: Atorvastatin Calcium 10 MG TABLET PO (19:57)
[2023-08-28] MEDS: ARIPiprazole 10 MG TABLET PO (19:57)
[2023-08-28] MEDS: traZODone HCL 100 MG TABLET PO (19:58)
[2023-08-29] MEDS: Thiamine HCL 100 MG TABLET PO ×2 (08:45→21:35)
[2023-08-29] MEDS: Escitalopram Oxalate 10 MG TABLET PO (08:45)
[2023-08-29] MEDS: Folic Acid 1 MG TABLET PO (08:45)
[2023-08-29] MEDS: Multivitamin TABLET 1 TAB PO (08:45)
[2023-08-29] MEDS: Apixaban 5 MG TABLET PO ×2 (08:45→21:35)
[2023-08-29] MEDS: cefuroxime axetiL 500 MG TABLET PO ×2 (08:45→21:35)
[2023-08-29] MEDS: Cholecalciferol (Vitamin D3) 10 MCG TABLET PO (08:45)
--- NOTE | 2023-08-29 08:50 | P.PNPSI_ITS ---
Subjective Subjective Date of Service: 08/29/23 Reason For Visit: SEC 12,RECENT SI ATTEMPT,CALM/COOP PER EMS Interim History: met with patient; discussed with team Patient reports he is doing well, good mood, no SI at all. Thankful for help received. Patient calmly sitting on bed reading a book. Patient received her food chopped up and there was an order for this to be so. Patient says even though she is edentulous, she has no problems eating regular food that is not cut up; she says she will take it if she has to but it is just not very visually appealing. Contact Center Engineer discussed with Nursing and there is no record of a swallow evaluation having been done or anything in the notes referencing the need for her food to be chopped. Mental Status Exam Mental Status Exam Patient Appearance: Appropriate Patient Orientation: Person and Place Level of Consciousness: Alert Patient Behavior: Appropriate, Talkative, Cooperative and Good Eye Contact Mood Description: Calm ( i get lonely sometimes ) Affect Description: Calm Ability to Follow Directions: Good Speech Pattern: Clear and Spontaneous Speech Memory Description: Remote Impaired, Episodic Impaired and Recent Impaired Hallucinations: None Delusions: Not Present Thought Process: Intact and Goal Oriented Thought Content: positive for Intact (no SI/HI) and positive for Circumstantial Depressive Symptoms: Diff. Making Decisions, Significant Weight Loss, Increased Fatigue and Loss of Energy Judgement and Insight: Impaired Diagnostics Vital Signs (24Hr): Vital Signs - 24 hr 08/28/23 16:29 Temperature 97.3 F Pulse Rate 63 Respiratory Rate 18 Blood Pressure 107/58 L Pulse Oximetry 97 Oxygen Delivery Method Room Air BMI result Body Mass Index 23.3 Labs 08/24/23 14:53 08/26/23 08:13 Labs: Laboratory Results - last 48 hr 08/28/23 09:47 POC Glucose 116 H Medications Medications Current Medications Acetaminophen (Acetaminophen 325 Mg Tablet) 650 mg PO Q6H PRN PRN Reason: Headache/Pain Mild Scale (1-3) Last Admin: 08/28/23 19:55 Dose: 650 mg Al Hydroxide/Mg Hydroxide (Magnesium Hydrox/Alum Hydrox 30 Ml Oral.Susp) 30 ml PO Q6H PRN PRN Reason: Heartburn/Nausea Apixaban (Apixaban 5 Mg Tablet) 5 mg PO BID [facility] Last Admin: 08/29/23 08:45 Dose: 5 mg Aripiprazole (Aripiprazole 10 Mg Tablet) 10 mg PO BEDTIME [facility] Last Admin: 08/28/23 19:57 Dose: 10 mg Atorvastatin Calcium (Atorvastatin Calcium 10 Mg Tablet) 10 mg PO BEDTIME [facility] Last Admin: 08/28/23 19:57 Dose: 10 mg Cefuroxime Axetil (Cefuroxime Axetil 500 Mg Tablet) 500 mg PO BID [facility] Last Admin: 08/29/23 08:45 Dose: 500 mg Escitalopram Oxalate (Escitalopram Oxalate 10 Mg Tablet) 10 mg PO DAILY [facility] Last Admin: 08/29/23 08:45 Dose: 10 mg Folic Acid (Folic Acid 1 Mg Tablet) 1 mg PO DAILY [facility] Last Admin: 08/29/23 08:45 Dose: 1 mg Haloperidol (Haloperidol 5 Mg Tablet) 5 mg PO BID PRN PRN Reason: severe agitation Hydroxyzine HCl (Hydroxyzine Hcl 25 Mg Tablet) 25 mg PO Q6H PRN PRN Reason: Anxiety Lorazepam (Lorazepam 1 Mg Tablet) 1 mg PO BID PRN PRN Reason: severe agitation Magnesium Hydroxide (Milk Of Magnesia 30 Ml Oral.Susp) 30 ml PO DAILY PRN PRN Reason: Constipation Multivitamins/Vitamin C (Multivitamin Tablet) 1 tab PO DAILY [facility] Last Admin: 08/29/23 08:45 Dose: 1 tab Nicotine Polacrilex (Nicotine Polacrilex Lozenge 2 Mg Lozenge) 2 mg BUCCAL Q2H PRN PRN Reason: Nicotine Cravings Thiamine HCl (Thiamine Hcl 100 Mg Tablet) 100 mg PO BID [facility] Last Admin: 08/29/23 08:45 Dose: 100 mg Trazodone HCl (Trazodone Hcl 50 Mg Tablet) 50 mg PO BEDTIME PRN PRN Reason: Insomnia Trazodone HCl (Trazodone Hcl 100 Mg Tablet) 100 mg PO BEDTIME [facility] Last Admin: 08/28/23 19:58 Dose: 100 mg Vitamin D (Cholecalciferol (Vitamin D3) 10 Mcg Tablet) 10 mcg PO DAILY [facility] Last Admin: 08/29/23 08:45 Dose: 10 mcg Allergies Allergies Allergy/AdvReac Type Severity Reaction Status Date / Time No Known Allergies Allergy Verified 08/24/23 13:03 Assessment & Plan Assessment & Plan (1) Recurrent major depression-severe: Status: Acute Code(s): F33.2 - Major depressive disorder, recurrent severe without psychotic features (2) Mild cognitive impairment: Status: Acute Code(s): G31.84 - Mild cognitive impairment of uncertain or unknown etiology Plan 67 yo female, living in an unsafe situation at home without heat, phone, water, electric at times, and unable to care for herself. Suicide attempt via carbon monoxide and whiskey ~4 months ago with a 4 week admit to [facility]. Neighbors called 911 for assistance which pt is willing to accept at this time. Neighbors report pt is not taking meds, not eating, not participating in ADL care and hoarding in the home. As she has not paid taxes the home will be auctioned by the [facility] and she has been informed she is not to be in the home at any time. Plan: CV 15. 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 Guadarrama Connect with OP supports, ?residential care 08/26/23 Continue current regime and plan. Diagnostics reviewed Cholesterol 265, LDL 181. Atorvastatin 10 mg daily Vit D3 28.3 D3 10 mcg daily 08/28/23 Continue current regime and plan of care. 08/29/23 Patient reports he is doing well, good mood, no SI at all. Thankful for help received. Patient calmly sitting on bed reading a book. Patient received her food chopped up and there was an order for this to be so. Patient says even though she is edentulous, she has no problems eating regular food that is not cut up; she says she will take it if she has to but it is just not very visually appealing. Contact Center Engineer discussed with Nursing and there is no record of a swallow evaluation having been done or anything in the notes referencing the need for her food to be chopped. Patient educated on: diagnosis and medical condition Informed Consent: understands Reason for continued inpatient stay Substantial Risk for: rapid decompensation Time Spent With Patient Time: Total time managing care of this patient today ____ minutes.
[2023-08-29 08:54] VITALS: BP 133/60; PULSE 57; RESP 16; TEMP 36.3; O2SAT 96
[2023-08-29 08:57] LABS: Glucose, Whole Blood 88 mg/dL (60-115)
[2023-08-29 18:00] VITALS: BP 137/77; PULSE 85; RESP 18; TEMP 36.3; O2SAT 97
[2023-08-29] MEDS: traZODone HCL 100 MG TABLET PO (21:35)
[2023-08-29] MEDS: Atorvastatin Calcium 10 MG TABLET PO (21:35)
[2023-08-29] MEDS: ARIPiprazole 10 MG TABLET PO (21:35)
[2023-08-30 08:05] VITALS: BP 118/59; PULSE 69; RESP 16; TEMP 36.6; O2SAT 97
[2023-08-30] MEDS: Escitalopram Oxalate 10 MG TABLET PO (09:07)
[2023-08-30] MEDS: Thiamine HCL 100 MG TABLET PO ×2 (09:07→20:53)
[2023-08-30] MEDS: Multivitamin TABLET 1 TAB PO (09:07)
[2023-08-30] MEDS: Folic Acid 1 MG TABLET PO (09:07)
[2023-08-30] MEDS: Cholecalciferol (Vitamin D3) 10 MCG TABLET PO (09:07)
[2023-08-30] MEDS: Apixaban 5 MG TABLET PO ×2 (09:07→20:52)
[2023-08-30] MEDS: cefuroxime axetiL 500 MG TABLET PO ×2 (09:07→20:53)
--- NOTE | 2023-08-30 10:05 | HO.PSYCHPN ---
Subjective Subjective Date of Service: 08/30/23 Reason For Visit: SEC 12,RECENT SI ATTEMPT,CALM/COOP PER EMS Interim History: met with patient; discussed with team Patient pleasant and friendly on approach. Says she is doing well. No complaints and no request. Mental Status Exam Mental Status Exam Patient Appearance: Appropriate Patient Orientation: Person and Place Level of Consciousness: Alert Patient Behavior: Appropriate, Talkative, Cooperative and Good Eye Contact Mood Description: Calm ( i get lonely sometimes ) Affect Description: Calm Ability to Follow Directions: Good Speech Pattern: Clear and Spontaneous Speech Memory Description: Remote Impaired, Episodic Impaired and Recent Impaired Hallucinations: None Delusions: Not Present Thought Process: Intact and Goal Oriented Thought Content: positive for Intact (no SI/HI) and positive for Circumstantial Depressive Symptoms: Diff. Making Decisions, Significant Weight Loss, Increased Fatigue and Loss of Energy Diagnostics Vital Signs (24Hr): Vital Signs - 24 hr 08/29/23 18:00 08/30/23 08:05 Temperature 97.3 F 97.8 F Pulse Rate 85 69 Respiratory Rate 18 16 Blood Pressure 137/77 118/59 L Pulse Oximetry 97 97 Oxygen Delivery Method Room Air Room Air BMI result Body Mass Index 23.3 Labs 08/24/23 14:53 08/26/23 08:13 Labs: Laboratory Results - last 48 hr 08/29/23 08:51 POC Glucose 88 Medications Medications Current Medications Acetaminophen (Acetaminophen 325 Mg Tablet) 650 mg PO Q6H PRN PRN Reason: Headache/Pain Mild Scale (1-3) Last Admin: 08/28/23 19:55 Dose: 650 mg Al Hydroxide/Mg Hydroxide (Magnesium Hydrox/Alum Hydrox 30 Ml Oral.Susp) 30 ml PO Q6H PRN PRN Reason: Heartburn/Nausea Apixaban (Apixaban 5 Mg Tablet) 5 mg PO BID [facility] Last Admin: 08/30/23 09:07 Dose: 5 mg Aripiprazole (Aripiprazole 10 Mg Tablet) 10 mg PO BEDTIME KATHERYN Last Admin: 08/29/23 21:35 Dose: 10 mg Atorvastatin Calcium (Atorvastatin Calcium 10 Mg Tablet) 10 mg PO BEDTIME KATHERYN Last Admin: 08/29/23 21:35 Dose: 10 mg Cefuroxime Axetil (Cefuroxime Axetil 500 Mg Tablet) 500 mg PO BID [facility] Last Admin: 08/30/23 09:07 Dose: 500 mg Escitalopram Oxalate (Escitalopram Oxalate 10 Mg Tablet) 10 mg PO DAILY [facility] Last Admin: 08/30/23 09:07 Dose: 10 mg Folic Acid (Folic Acid 1 Mg Tablet) 1 mg PO DAILY [facility] Last Admin: 08/30/23 09:07 Dose: 1 mg Haloperidol (Haloperidol 5 Mg Tablet) 5 mg PO BID PRN PRN Reason: severe agitation Hydroxyzine HCl (Hydroxyzine Hcl 25 Mg Tablet) 25 mg PO Q6H PRN PRN Reason: Anxiety Lorazepam (Lorazepam 1 Mg Tablet) 1 mg PO BID PRN PRN Reason: severe agitation Magnesium Hydroxide (Milk Of Magnesia 30 Ml Oral.Susp) 30 ml PO DAILY PRN PRN Reason: Constipation Multivitamins/Vitamin C (Multivitamin Tablet) 1 tab PO DAILY [facility] Last Admin: 08/30/23 09:07 Dose: 1 tab Nicotine Polacrilex (Nicotine Polacrilex Lozenge 2 Mg Lozenge) 2 mg BUCCAL Q2H PRN PRN Reason: Nicotine Cravings Thiamine HCl (Thiamine Hcl 100 Mg Tablet) 100 mg PO BID [facility] Last Admin: 08/30/23 09:07 Dose: 100 mg Trazodone HCl (Trazodone Hcl 50 Mg Tablet) 50 mg PO BEDTIME PRN PRN Reason: Insomnia Trazodone HCl (Trazodone Hcl 100 Mg Tablet) 100 mg PO BEDTIME [facility] Last Admin: 08/29/23 21:35 Dose: 100 mg Vitamin D (Cholecalciferol (Vitamin D3) 10 Mcg Tablet) 10 mcg PO DAILY [facility] Last Admin: 08/30/23 09:07 Dose: 10 mcg Allergies Allergies Allergy/AdvReac Type Severity Reaction Status Date / Time No Known Allergies Allergy Verified 08/24/23 13:03 Assessment & Plan Assessment & Plan (1) Recurrent major depression-severe: Status: Acute Code(s): F33.2 - Major depressive disorder, recurrent severe without psychotic features (2) Mild cognitive impairment: Status: Acute Code(s): G31.84 - Mild cognitive impairment of uncertain or unknown etiology Plan 67 yo female, living in an unsafe situation at home without heat, phone, water, electric at times, and unable to care for herself. Suicide attempt via carbon monoxide and whiskey ~4 months ago with a 4 week admit to [facility]. Neighbors called 911 for assistance which pt is willing to accept at this time. Neighbors report pt is not taking meds, not eating, not participating in ADL care and hoarding in the home. As she has not paid taxes [facility] and she has been informed she is not to be in the home at any time. Plan: CV 15. 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 Guadarrama Connect with OP supports, ?residential care 08/26/23 Continue current regime and plan. Diagnostics reviewed Cholesterol 265, LDL 181. Atorvastatin 10 mg daily Vit D3 28.3 D3 10 mcg daily 08/28/23 Continue current regime and plan of care. 08/29/23 Patient reports he is doing well, good mood, no SI at all. Thankful for help received. Patient calmly sitting on bed reading a book. Patient received her food chopped up and there was an order for this to be so. Patient says even though she is edentulous, she has no problems eating regular food that is not cut up; she says she will take it if she has to but it is just not very visually appealing. Manager Of Administration discussed with Nursing and there is no record of a swallow evaluation having been done or anything in the notes referencing the need for her food to be chopped. 08/30 continue current treatment plan Patient educated on: diagnosis Informed Consent: understands Reason for continued inpatient stay Substantial Risk for: med/psych decompensation Time Spent With Patient Time: Total time managing care of this patient today ____ minutes.
[2023-08-30 18:00] VITALS: BP 121/66; PULSE 65; RESP 16; TEMP 36.6; O2SAT 96
[2023-08-30] MEDS: ARIPiprazole 10 MG TABLET PO (20:52)
[2023-08-30] MEDS: Atorvastatin Calcium 10 MG TABLET PO (20:52)
[2023-08-30] MEDS: traZODone HCL 100 MG TABLET PO (20:52)
[2023-08-31 08:00] VITALS: BP 116/72; PULSE 62; TEMP 36.6; O2SAT 97
[2023-08-31] MEDS: Apixaban 5 MG TABLET PO ×2 (08:52→21:59)
[2023-08-31] MEDS: cefuroxime axetiL 500 MG TABLET PO ×2 (08:52→21:58)
[2023-08-31] MEDS: Thiamine HCL 100 MG TABLET PO ×2 (08:53→21:59)
[2023-08-31] MEDS: Multivitamin TABLET 1 TAB PO (08:53)
[2023-08-31] MEDS: Cholecalciferol (Vitamin D3) 10 MCG TABLET PO (08:53)
[2023-08-31] MEDS: Escitalopram Oxalate 10 MG TABLET PO (08:53)
[2023-08-31] MEDS: Folic Acid 1 MG TABLET PO (08:53)
--- NOTE | 2023-08-31 09:48 | P.PNPSI_ITS ---
Subjective Subjective Date of Service: 08/31/23 Reason For Visit: SEC 12,RECENT SI ATTEMPT,CALM/COOP PER EMS Interim History: met with patient; discussed with team Pleasant, cooperative. Says she is doing well, thankful for help received. Sleeping well, no SI. Patient agreed that she used to drink heavily in the past. She also agrees that likely she was not eating all that well during those times. She does not know about a diagnosis of Korsakoffbut after hearing some of the symptoms she thinks it could be possible. Biodiesel Engineering Manager discussed with her possible trial of Memantin which some studies have shown can help with the cognitive impairment associated with Korsakoff. Biodiesel Engineering Manager reviewed risks/side effects of this medication to which she agreed to start. Mental Status Exam Mental Status Exam Patient Appearance: Appropriate Patient Orientation: Person and Place Level of Consciousness: Alert Patient Behavior: Appropriate, Talkative, Cooperative and Good Eye Contact Mood Description: Calm ( i get lonely sometimes ) Affect Description: Calm Ability to Follow Directions: Good Speech Pattern: Clear and Spontaneous Speech Memory Description: Remote Impaired, Episodic Impaired and Recent Impaired Hallucinations: None Delusions: Not Present Thought Process: Intact and Goal Oriented Thought Content: positive for Intact (no SI/HI) and positive for Circumstantial Depressive Symptoms: Diff. Making Decisions, Significant Weight Loss, Increased Fatigue and Loss of Energy Diagnostics Vital Signs (24Hr): Vital Signs - 24 hr 08/30/23 18:00 08/31/23 08:00 Temperature 97.8 F 97.9 F Pulse Rate 65 62 Respiratory Rate 16 Blood Pressure 121/66 116/72 Pulse Oximetry 96 97 Oxygen Delivery Method Room Air Room Air BMI result Body Mass Index 23.3 Labs 08/24/23 14:53 08/26/23 08:13 Medications Medications Current Medications Acetaminophen (Acetaminophen 325 Mg Tablet) 650 mg PO Q6H PRN PRN Reason: Headache/Pain Mild Scale (1-3) Last Admin: 08/28/23 19:55 Dose: 650 mg Al Hydroxide/Mg Hydroxide (Magnesium Hydrox/Alum Hydrox 30 Ml Oral.Susp) 30 ml PO Q6H PRN PRN Reason: Heartburn/Nausea Apixaban (Apixaban 5 Mg Tablet) 5 mg PO BID [facility] Last Admin: 08/31/23 08:52 Dose: 5 mg Aripiprazole (Aripiprazole 10 Mg Tablet) 10 mg PO BEDTIME [facility] Last Admin: 08/30/23 20:52 Dose: 10 mg Atorvastatin Calcium (Atorvastatin Calcium 10 Mg Tablet) 10 mg PO BEDTIME [facility] Last Admin: 08/30/23 20:52 Dose: 10 mg Cefuroxime Axetil (Cefuroxime Axetil 500 Mg Tablet) 500 mg PO BID [facility] Last Admin: 08/31/23 08:52 Dose: 500 mg Escitalopram Oxalate (Escitalopram Oxalate 10 Mg Tablet) 10 mg PO DAILY [facility] Last Admin: 08/31/23 08:53 Dose: 10 mg Folic Acid (Folic Acid 1 Mg Tablet) 1 mg PO DAILY [facility] Last Admin: 08/31/23 08:53 Dose: 1 mg Haloperidol (Haloperidol 5 Mg Tablet) 5 mg PO BID PRN PRN Reason: severe agitation Hydroxyzine HCl (Hydroxyzine Hcl 25 Mg Tablet) 25 mg PO Q6H PRN PRN Reason: Anxiety Lorazepam (Lorazepam 1 Mg Tablet) 1 mg PO BID PRN PRN Reason: severe agitation Magnesium Hydroxide (Milk Of Magnesia 30 Ml Oral.Susp) 30 ml PO DAILY PRN PRN Reason: Constipation Multivitamins/Vitamin C (Multivitamin Tablet) 1 tab PO DAILY [facility] Last Admin: 08/31/23 08:53 Dose: 1 tab Nicotine Polacrilex (Nicotine Polacrilex Lozenge 2 Mg Lozenge) 2 mg BUCCAL Q2H PRN PRN Reason: Nicotine Cravings Thiamine HCl (Thiamine Hcl 100 Mg Tablet) 100 mg PO BID [facility] Last Admin: 08/31/23 08:53 Dose: 100 mg Trazodone HCl (Trazodone Hcl 50 Mg Tablet) 50 mg PO BEDTIME PRN PRN Reason: Insomnia Trazodone HCl (Trazodone Hcl 100 Mg Tablet) 100 mg PO BEDTIME [facility] Last Admin: 08/30/23 20:52 Dose: 100 mg Vitamin D (Cholecalciferol (Vitamin D3) 10 Mcg Tablet) 10 mcg PO DAILY [facility] Last Admin: 08/31/23 08:53 Dose: 10 mcg Allergies Allergies Allergy/AdvReac Type Severity Reaction Status Date / Time No Known Allergies Allergy Verified 08/24/23 13:03 Assessment & Plan Assessment & Plan (1) Recurrent major depression-severe: Status: Acute Code(s): F33.2 - Major depressive disorder, recurrent severe without psychotic features (2) Mild cognitive impairment: Status: Acute Code(s): G31.84 - Mild cognitive impairment of uncertain or unknown etiology Plan 67 yo female, living in an unsafe situation at home without heat, phone, water, electric at times, and unable to care for herself. Suicide attempt via carbon monoxide and whiskey ~4 months ago with a 4 week admit to [facility]. Neighbors called 911 for assistance which pt is willing to accept at this time. Neighbors report pt is not taking meds, not eating, not participating in ADL care and hoarding in the home. As she has not paid taxes the home will be auctioned by the [facility] and she has been informed she is not to be in the home at any time. Plan: CV 15. 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 Guadarrama Connect with OP supports, ?residential care 08/26/23 Continue current regime and plan. Diagnostics reviewed Cholesterol 265, LDL 181. Atorvastatin 10 mg daily Vit D3 28.3 D3 10 mcg daily 08/28/23 Continue current regime and plan of care. 08/29/23 Patient reports he is doing well, good mood, no SI at all. Thankful for help received. Patient calmly sitting on bed reading a book. Patient received her food chopped up and there was an order for this to be so. Patient says even though she is edentulous, she has no problems eating regular food that is not cut up; she says she will take it if she has to but it is just not very visually appealing. Biodiesel Engineering Manager discussed with Nursing and there is no record of a swallow evaluation having been done or anything in the notes referencing the need for her food to be chopped. 08/30 continue current treatment plan 08/31 Pleasant, cooperative. Says she is doing well, thankful for help received. Sleeping well, no SI. Patient agreed that she used to drink heavily in the past. She also agrees that likely she was not eating all that well during those times. She does not know about a diagnosis of Korsakoffbut after hearing some of the symptoms she thinks it could be possible. Biodiesel Engineering Manager discussed with her possible trial of Memantin which some studies have shown can help with the cognitive impairment associated with Korsakoff . Biodiesel Engineering Manager reviewed risks/side effects of this medication to which she agreed to start. -will try to verify dx of Korsakoff; and consider memantine 10 mg b.i.d. Patient educated on: diagnosis, medication risk/benefits, substance abuse and medical condition Informed Consent: understands Reason for continued inpatient stay Substantial Risk for: med/psych decompensation Time Spent With Patient Time: Total time managing care of this patient today ____ minutes.
[2023-08-31 18:00] VITALS: BP 115/56; PULSE 62; TEMP 36.9
[2023-08-31] MEDS: ARIPiprazole 10 MG TABLET PO (21:58)
[2023-08-31] MEDS: traZODone HCL 100 MG TABLET PO (21:58)
[2023-08-31] MEDS: Atorvastatin Calcium 10 MG TABLET PO (21:58)
[2023-09-01 06:00] VITALS: BP 113/58; PULSE 57; RESP 16; TEMP 36.3; O2SAT 95
[2023-09-01] MEDS: Multivitamin TABLET 1 TAB PO (08:28)
[2023-09-01] MEDS: Cholecalciferol (Vitamin D3) 10 MCG TABLET PO (08:28)
[2023-09-01] MEDS: Folic Acid 1 MG TABLET PO (08:28)
[2023-09-01] MEDS: Thiamine HCL 100 MG TABLET PO ×2 (08:28→22:32)
[2023-09-01] MEDS: Escitalopram Oxalate 10 MG TABLET PO (08:28)
[2023-09-01] MEDS: Apixaban 5 MG TABLET PO ×2 (08:28→22:33)
[2023-09-01] MEDS: cefuroxime axetiL 500 MG TABLET PO ×2 (08:30→22:33)
--- NOTE | 2023-09-01 09:46 | P.PNPSI_ITS ---
Subjective Subjective Date of Service: 09/01/23 Reason For Visit: SEC 12,RECENT SI ATTEMPT,CALM/COOP PER EMS Interim History: met with patient; discussed with team Patient in a good mood, pleasant and cooperative. Discussed again starting Memantine and patient wants to move forward this medication Mental Status Exam Mental Status Exam Patient Appearance: Appropriate Patient Orientation: Person and Place Level of Consciousness: Alert Patient Behavior: Appropriate, Talkative, Cooperative and Good Eye Contact Mood Description: Calm ( i get lonely sometimes ) Affect Description: Calm Ability to Follow Directions: Good Speech Pattern: Clear and Spontaneous Speech Memory Description: Remote Impaired, Episodic Impaired and Recent Impaired Hallucinations: None Delusions: Not Present Thought Process: Intact and Goal Oriented Thought Content: positive for Intact (no SI/HI) and positive for Circumstantial Depressive Symptoms: Diff. Making Decisions, Significant Weight Loss, Increased Fatigue and Loss of Energy Diagnostics Vital Signs (24Hr): Vital Signs - 24 hr 08/31/23 18:00 09/01/23 06:00 Temperature 98.4 F 97.3 F Pulse Rate 62 57 Respiratory Rate 16 Blood Pressure 115/56 L 113/58 L Pulse Oximetry 95 Oxygen Delivery Method Room Air BMI result Body Mass Index 23.3 Labs 08/24/23 14:53 08/26/23 08:13 Medications Medications Current Medications Acetaminophen (Acetaminophen 325 Mg Tablet) 650 mg PO Q6H PRN PRN Reason: Headache/Pain Mild Scale (1-3) Last Admin: 08/28/23 19:55 Dose: 650 mg Al Hydroxide/Mg Hydroxide (Magnesium Hydrox/Alum Hydrox 30 Ml Oral.Susp) 30 ml PO Q6H PRN PRN Reason: Heartburn/Nausea Apixaban (Apixaban 5 Mg Tablet) 5 mg PO BID [facility] Last Admin: 09/01/23 08:28 Dose: 5 mg Aripiprazole (Aripiprazole 10 Mg Tablet) 10 mg PO BEDTIME KATHERYN Last Admin: 08/31/23 21:58 Dose: 10 mg Atorvastatin Calcium (Atorvastatin Calcium 10 Mg Tablet) 10 mg PO BEDTIME [facility]ATHERYN Last Admin: 08/31/23 21:58 Dose: 10 mg Cefuroxime Axetil (Cefuroxime Axetil 500 Mg Tablet) 500 mg PO BID [facility] Last Admin: 09/01/23 08:30 Dose: 500 mg Escitalopram Oxalate (Escitalopram Oxalate 10 Mg Tablet) 10 mg PO DAILY [facility] Last Admin: 09/01/23 08:28 Dose: 10 mg Folic Acid (Folic Acid 1 Mg Tablet) 1 mg PO DAILY [facility] Last Admin: 09/01/23 08:28 Dose: 1 mg Haloperidol (Haloperidol 5 Mg Tablet) 5 mg PO BID PRN PRN Reason: severe agitation Hydroxyzine HCl (Hydroxyzine Hcl 25 Mg Tablet) 25 mg PO Q6H PRN PRN Reason: Anxiety Lorazepam (Lorazepam 1 Mg Tablet) 1 mg PO BID PRN PRN Reason: severe agitation Magnesium Hydroxide (Milk Of Magnesia 30 Ml Oral.Susp) 30 ml PO DAILY PRN PRN Reason: Constipation Multivitamins/Vitamin C (Multivitamin Tablet) 1 tab PO DAILY [facility] Last Admin: 09/01/23 08:28 Dose: 1 tab Nicotine Polacrilex (Nicotine Polacrilex Lozenge 2 Mg Lozenge) 2 mg BUCCAL Q2H PRN PRN Reason: Nicotine Cravings Thiamine HCl (Thiamine Hcl 100 Mg Tablet) 100 mg PO BID [facility] Last Admin: 09/01/23 08:28 Dose: 100 mg Trazodone HCl (Trazodone Hcl 50 Mg Tablet) 50 mg PO BEDTIME PRN PRN Reason: Insomnia Trazodone HCl (Trazodone Hcl 100 Mg Tablet) 100 mg PO BEDTIME [facility] Last Admin: 08/31/23 21:58 Dose: 100 mg Vitamin D (Cholecalciferol (Vitamin D3) 10 Mcg Tablet) 10 mcg PO DAILY [facility] Last Admin: 09/01/23 08:28 Dose: 10 mcg Allergies Allergies Allergy/AdvReac Type Severity Reaction Status Date / Time No Known Allergies Allergy Verified 08/24/23 13:03 Assessment & Plan Assessment & Plan (1) Recurrent major depression-severe: Status: Acute Code(s): F33.2 - Major depressive disorder, recurrent severe without psychotic features (2) Mild cognitive impairment: Status: Acute Code(s): G31.84 - Mild cognitive impairment of uncertain or unknown etiology Plan 67 yo female, living in an unsafe situation at home without heat, phone, water, electric at times, and unable to care for herself. Suicide attempt via carbon monoxide and whiskey ~4 months ago with a 4 week admit to [facility]. Neighbors called 911 for assistance which pt is willing to accept at this time. Neighbors report pt is not taking meds, not eating, not participating in ADL care and hoarding in the home. As she has not paid taxes the home will be auctioned by the [facility] and she has been informed she is not to be in the home at any time. Plan: CV 15. Observe level of functioning START memantine 10 mg b.i.d. 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 Guadarrama Connect with OP supports, ?residential care 08/26/23 Continue current regime and plan. Diagnostics reviewed Cholesterol 265, LDL 181. Atorvastatin 10 mg daily Vit D3 28.3 D3 10 mcg daily 08/28/23 Continue current regime and plan of care. 08/29/23 Patient reports he is doing well, good mood, no SI at all. Thankful for help received. Patient calmly sitting on bed reading a book. Patient received her food chopped up and there was an order for this to be so. Patient says even though she is edentulous, she has no problems eating regular food that is not cut up; she says she will take it if she has to but it is just not very visually appealing. Clinical Business Analyst discussed with Nursing and there is no record of a swallow evaluation having been done or anything in the notes referencing the need for her food to be chopped. 08/30 continue current treatment plan 08/31 Pleasant, cooperative. Says she is doing well, thankful for help received. Sleeping well, no SI. Patient agreed that she used to drink heavily in the past. She also agrees that likely she was not eating all that well during those times. She does not know about a diagnosis of Korsakoffbut after hearing some of the symptoms she thinks it could be possible. Clinical Business Analyst discussed with her possible trial of Memantin which some studies have shown can help with the cognitive impairment associated with Korsakoff . Clinical Business Analyst reviewed risks/side effects of this medication to which she agreed to start. -will try to verify dx of Korsakoff; and consider memantine 10 mg b.i.d. 09/01 patient wants to move forward this medication ( HCP/Team reports pt has Kathy dx ) Patient educated on: diagnosis and medication risk/benefits Informed Consent: understands Reason for continued inpatient stay Substantial Risk for: rapid decompensation Time Spent With Patient Time: Total time managing care of this patient today ____ minutes.
[2023-09-01 16:59] VITALS: BP 144/70; PULSE 71; TEMP 36.4; O2SAT 96
[2023-09-01 22:30] VITALS: BP 107/59; PULSE 59; TEMP 36.5
[2023-09-01] MEDS: Atorvastatin Calcium 10 MG TABLET PO (22:33)
[2023-09-01] MEDS: ARIPiprazole 10 MG TABLET PO (22:33)
[2023-09-01] MEDS: traZODone HCL 100 MG TABLET PO (22:34)
[2023-09-02 08:00] VITALS: BP 133/68; PULSE 63; RESP 16; TEMP 36.4; O2SAT 97
[2023-09-02] MEDS: Folic Acid 1 MG TABLET PO (08:51)
[2023-09-02] MEDS: Thiamine HCL 100 MG TABLET PO ×2 (08:51→20:27)
[2023-09-02] MEDS: Cholecalciferol (Vitamin D3) 10 MCG TABLET PO (08:51)
[2023-09-02] MEDS: Escitalopram Oxalate 10 MG TABLET PO (08:51)
[2023-09-02] MEDS: Apixaban 5 MG TABLET PO ×2 (08:51→20:27)
[2023-09-02] MEDS: Multivitamin TABLET 1 TAB PO (08:51)
[2023-09-02] MEDS: cefuroxime axetiL 500 MG TABLET PO ×2 (08:51→20:27)
--- NOTE | 2023-09-02 11:00 | P.PNPSI_ITS ---
Subjective Subjective Date of Service: 09/02/23 Reason For Visit: SEC 12,RECENT SI ATTEMPT,CALM/COOP PER EMS Subjective Notes: Conditional Voluntary Healthcare Proxy: No Guardianship: No Medical Problems Affecting Mental Status: No Interim History: Lianet reports she is feeling well. She misses her room-mate but is happy to meet a new room-mate who is interactive. Reports sleep and appetite are improved. Denies pain. STM remains a concern. We discussed making a call to her brother- she is anxious about this, stating she has not talked with him in a long while and is apprehensive. She asks that we wait until after the holiday. Medication Compliance: Yes Side effects from medications: No Attending Groups: Intermittent (increase in anxiety with milieu activity) Review of Systems Acute medical concerns: No Medical Review of Systems: unchanged Review of Systems Review of Systems Yes all other systems are reviewed and are negative (pt denies) Mental Status Exam Mental Status Exam Patient Appearance: Appropriate Patient Orientation: Person, Place, Time and Situation Level of Consciousness: Alert Patient Behavior: Appropriate, Talkative and Good Eye Contact Mood Description: Blunted Affect Description: Blunted Patient Cognition Impaired: Yes Ability to Follow Directions: Good Speech Pattern: Spontaneous Speech and Soft-Spoken Memory Description: Remote Impaired Hallucinations: None Delusions: Not Present Thought Process: Distracted and Rumination Thought Content: positive for Perseveration Depressive Symptoms: Thoughts of /Suicide (denies) Judgement: Poor Diagnostics Vital Signs (24Hr): Vital Signs - 24 hr 09/01/23 16:59 09/01/23 22:30 09/02/23 08:00 Temperature 97.6 F 97.7 F 97.6 F Pulse Rate 71 59 63 Respiratory Rate 16 Blood Pressure 144/70 H 107/59 L 133/68 Pulse Oximetry 96 97 Oxygen Delivery Method Room Air Room Air BMI result Body Mass Index 23.3 Labs 08/24/23 14:53 08/26/23 08:13 Medications Medications Current Medications Acetaminophen (Acetaminophen 325 Mg Tablet) 650 mg PO Q6H PRN PRN Reason: Headache/Pain Mild Scale (1-3) Last Admin: 08/28/23 19:55 Dose: 650 mg Al Hydroxide/Mg Hydroxide (Magnesium Hydrox/Alum Hydrox 30 Ml Oral.Susp) 30 ml PO Q6H PRN PRN Reason: Heartburn/Nausea Apixaban (Apixaban 5 Mg Tablet) 5 mg PO BID [facility] Last Admin: 09/02/23 08:51 Dose: 5 mg Aripiprazole (Aripiprazole 10 Mg Tablet) 10 mg PO BEDTIME [facility] Last Admin: 09/01/23 22:33 Dose: 10 mg Atorvastatin Calcium (Atorvastatin Calcium 10 Mg Tablet) 10 mg PO BEDTIME [facility] Last Admin: 09/01/23 22:33 Dose: 10 mg Cefuroxime Axetil (Cefuroxime Axetil 500 Mg Tablet) 500 mg PO BID [facility] Last Admin: 09/02/23 08:51 Dose: 500 mg Escitalopram Oxalate (Escitalopram Oxalate 10 Mg Tablet) 10 mg PO DAILY [facility] Last Admin: 09/02/23 08:51 Dose: 10 mg Folic Acid (Folic Acid 1 Mg Tablet) 1 mg PO DAILY [facility] Last Admin: 09/02/23 08:51 Dose: 1 mg Haloperidol (Haloperidol 5 Mg Tablet) 5 mg PO BID PRN PRN Reason: severe agitation Hydroxyzine HCl (Hydroxyzine Hcl 25 Mg Tablet) 25 mg PO Q6H PRN PRN Reason: Anxiety Lorazepam (Lorazepam 1 Mg Tablet) 1 mg PO BID PRN PRN Reason: severe agitation Magnesium Hydroxide (Milk Of Magnesia 30 Ml Oral.Susp) 30 ml PO DAILY PRN PRN Reason: Constipation Multivitamins/Vitamin C (Multivitamin Tablet) 1 tab PO DAILY [facility] Last Admin: 09/02/23 08:51 Dose: 1 tab Nicotine Polacrilex (Nicotine Polacrilex Lozenge 2 Mg Lozenge) 2 mg BUCCAL Q2H PRN PRN Reason: Nicotine Cravings Thiamine HCl (Thiamine Hcl 100 Mg Tablet) 100 mg PO BID [facility] Last Admin: 09/02/23 08:51 Dose: 100 mg Trazodone HCl (Trazodone Hcl 50 Mg Tablet) 50 mg PO BEDTIME PRN PRN Reason: Insomnia Trazodone HCl (Trazodone Hcl 100 Mg Tablet) 100 mg PO BEDTIME [facility] Last Admin: 09/01/23 22:34 Dose: 100 mg Vitamin D (Cholecalciferol (Vitamin D3) 10 Mcg Tablet) 10 mcg PO DAILY [facility] Last Admin: 09/02/23 08:51 Dose: 10 mcg Allergies Allergies Allergy/AdvReac Type Severity Reaction Status Date / Time No Known Allergies Allergy Verified 08/24/23 13:03 Assessment & Plan Assessment & Plan (1) Recurrent major depression-severe: Status: Acute Code(s): F33.2 - Major depressive disorder, recurrent severe without psychotic features (2) Mild cognitive impairment: Status: Acute Code(s): G31.84 - Mild cognitive impairment of uncertain or unknown etiology Plan 67 yo female, living in an unsafe situation at home without heat, phone, water, electric at times, and unable to care for herself. Suicide attempt via carbon monoxide and whiskey ~4 months ago with a 4 week admit to [facility]. Neighbors called 911 for assistance which pt is willing to accept at this time. Neighbors report pt is not taking meds, not eating, not participating in ADL care and hoarding in the home. As she has not paid taxes the home will be auctioned by the [facility] and she has been informed she is not to be in the home at any time. Plan: CV 15. 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 Guadarrama Connect with OP supports, ?residential care 08/26/23 Continue current regime and plan. Diagnostics reviewed Cholesterol 265, LDL 181. Atorvastatin 10 mg daily Vit D3 28.3 D3 10 mcg daily 08/28/23 Continue current regime and plan of care. 08/29/23 Patient reports he is doing well, good mood, no SI at all. Thankful for help received. Patient calmly sitting on bed reading a book. Patient received her food chopped up and there was an order for this to be so. Patient says even though she is edentulous, she has no problems eating regular food that is not cut up; she says she will take it if she has to but it is just not very visually appealing. Fight Manager discussed with Nursing and there is no record of a swallow evaluation having been done or anything in the notes referencing the need for her food to be chopped. 08/30 continue current treatment plan 08/31 Pleasant, cooperative. Says she is doing well, thankful for help received. Sleeping well, no SI. Patient agreed that she used to drink heavily in the past. She also agrees that likely she was not eating all that well during those times. She does not know about a diagnosis of Korsakoffbut after hearing some of the symptoms she thinks it could be possible. Fight Manager discussed with her possible trial of Memantin which some studies have shown can help with the cognitive impairment associated with Korsakoff . Fight Manager reviewed risks/side effects of this medication to which she agreed to start. -will try to verify dx of Korsakoff; and consider memantine 10 mg b.i.d. 09/03- Continue current regime/plan. Diagnosis of Korsakoff comes from elder services. We continue to attempt to validate. Currently MVI, Folate, Thiamine in place. Brother may have more information. Informed Consent: does not understand Reason for continued inpatient stay Substantial Risk for: rapid decompensation Time Spent With Patient Time: Total time managing care of this patient today ____ minutes.
[2023-09-02 18:00] VITALS: BP 124/60; PULSE 63; TEMP 36.4; O2SAT 98
[2023-09-02] MEDS: ARIPiprazole 10 MG TABLET PO (20:27)
[2023-09-02] MEDS: traZODone HCL 100 MG TABLET PO (20:27)
[2023-09-02] MEDS: Atorvastatin Calcium 10 MG TABLET PO (20:27)
[2023-09-03 06:00] VITALS: BP 113/63; PULSE 62; RESP 16; TEMP 36.6; O2SAT 113
[2023-09-03 07:00] VITALS: BMI 24.1
[2023-09-03] MEDS: Escitalopram Oxalate 10 MG TABLET PO (08:31)
[2023-09-03] MEDS: Apixaban 5 MG TABLET PO ×2 (08:31→20:42)
[2023-09-03] MEDS: Thiamine HCL 100 MG TABLET PO ×2 (08:31→20:42)
[2023-09-03] MEDS: Folic Acid 1 MG TABLET PO (08:31)
[2023-09-03] MEDS: Cholecalciferol (Vitamin D3) 10 MCG TABLET PO (08:31)
[2023-09-03] MEDS: Multivitamin TABLET 1 TAB PO (08:31)
[2023-09-03] MEDS: cefuroxime axetiL 500 MG TABLET PO ×2 (08:31→20:42)
--- NOTE | 2023-09-03 15:06 | P.PNPSI_ITS ---
Subjective Subjective Date of Service: 09/03/23 Reason For Visit: SEC 12,RECENT SI ATTEMPT,CALM/COOP PER EMS Interim History: Pt reports feeling well. She talked of her history. She used to live in the [place], [place] and enjoyed this. She states she returned to [place] to care for parents and would like to return to live there, as she will be near to her brothers, however, she would stay in [place] as she has a very supportive group of friends. States she has not talked with brother in years and is anxious about talking with him. She asks to postpone this until post holiday. Discussion with pt's brother and Jose BECKFORD. Brother lives between [place] and [facility]. He believes pt would be best to remain in [place] as he is in [facility] most of the time. Brother has talked with pt's family law attorney who is supportive and has talked with pt's friends and mentions [facility] for possible placement. Brother offered some history-pt has been using alcohol and recreational drugs since adulthood, their other brother drinks and father was alcoholic-getting sober at age 55. Brother will be in [facility] next week- they are 5 hours ahead of our time. We will plan a group call with pt next week. Of note, brother talks with pt daily, but she has no recall of this when asked. Medication Compliance: Yes Side effects from medications: No Attending Groups: Intermittent Review of Systems Acute medical concerns: No Medical Review of Systems: unchanged Review of Systems Review of Systems Yes all other systems are reviewed and are negative (pt denies) Mental Status Exam Mental Status Exam Patient Appearance: Appropriate Patient Orientation: Person, Place, Time and Situation Level of Consciousness: Alert Patient Behavior: Appropriate, Talkative and Good Eye Contact Mood Description: Blunted Affect Description: Blunted Patient Cognition Impaired: Yes Ability to Follow Directions: Good Speech Pattern: Spontaneous Speech and Soft-Spoken Memory Description: Remote Impaired Hallucinations: None Delusions: Not Present Thought Process: Distracted and Rumination Thought Content: positive for Perseveration Depressive Symptoms: Thoughts of /Suicide (denies) Judgement: Poor Diagnostics Vital Signs (24Hr): Vital Signs - 24 hr 09/02/23 18:00 09/03/23 06:00 Temperature 97.5 F 97.9 F Pulse Rate 63 62 Respiratory Rate 16 Blood Pressure 124/60 113/63 Pulse Oximetry 98 113 H Oxygen Delivery Method Room Air Room Air BMI result Body Mass Index 24.1 Labs 08/24/23 14:53 08/26/23 08:13 Medications Medications Current Medications Acetaminophen (Acetaminophen 325 Mg Tablet) 650 mg PO Q6H PRN PRN Reason: Headache/Pain Mild Scale (1-3) Last Admin: 08/28/23 19:55 Dose: 650 mg Al Hydroxide/Mg Hydroxide (Magnesium Hydrox/Alum Hydrox 30 Ml Oral.Susp) 30 ml PO Q6H PRN PRN Reason: Heartburn/Nausea Apixaban (Apixaban 5 Mg Tablet) 5 mg PO BID [facility] Last Admin: 09/03/23 08:31 Dose: 5 mg Aripiprazole (Aripiprazole 10 Mg Tablet) 10 mg PO BEDTIME [facility] Last Admin: 09/02/23 20:27 Dose: 10 mg Atorvastatin Calcium (Atorvastatin Calcium 10 Mg Tablet) 10 mg PO BEDTIME [facility] Last Admin: 09/02/23 20:27 Dose: 10 mg Cefuroxime Axetil (Cefuroxime Axetil 500 Mg Tablet) 500 mg PO BID [facility] Last Admin: 09/03/23 08:31 Dose: 500 mg Escitalopram Oxalate (Escitalopram Oxalate 10 Mg Tablet) 10 mg PO DAILY [facility] Last Admin: 09/03/23 08:31 Dose: 10 mg Folic Acid (Folic Acid 1 Mg Tablet) 1 mg PO DAILY [facility] Last Admin: 09/03/23 08:31 Dose: 1 mg Haloperidol (Haloperidol 5 Mg Tablet) 5 mg PO BID PRN PRN Reason: severe agitation Hydroxyzine HCl (Hydroxyzine Hcl 25 Mg Tablet) 25 mg PO Q6H PRN PRN Reason: Anxiety Lorazepam (Lorazepam 1 Mg Tablet) 1 mg PO BID PRN PRN Reason: severe agitation Magnesium Hydroxide (Milk Of Magnesia 30 Ml Oral.Susp) 30 ml PO DAILY PRN PRN Reason: Constipation Multivitamins/Vitamin C (Multivitamin Tablet) 1 tab PO DAILY [facility] Last Admin: 09/03/23 08:31 Dose: 1 tab Nicotine Polacrilex (Nicotine Polacrilex Lozenge 2 Mg Lozenge) 2 mg BUCCAL Q2H PRN PRN Reason: Nicotine Cravings Thiamine HCl (Thiamine Hcl 100 Mg Tablet) 100 mg PO BID [facility] Last Admin: 09/03/23 08:31 Dose: 100 mg Trazodone HCl (Trazodone Hcl 50 Mg Tablet) 50 mg PO BEDTIME PRN PRN Reason: Insomnia Trazodone HCl (Trazodone Hcl 100 Mg Tablet) 100 mg PO BEDTIME [facility] Last Admin: 09/02/23 20:27 Dose: 100 mg Vitamin D (Cholecalciferol (Vitamin D3) 10 Mcg Tablet) 10 mcg PO DAILY [facility] Last Admin: 09/03/23 08:31 Dose: 10 mcg Allergies Allergies Allergy/AdvReac Type Severity Reaction Status Date / Time No Known Allergies Allergy Verified 08/24/23 13:03 Assessment & Plan Assessment & Plan (1) Recurrent major depression-severe: Status: Acute Code(s): F33.2 - Major depressive disorder, recurrent severe without psychotic features (2) Mild cognitive impairment: Status: Acute Code(s): G31.84 - Mild cognitive impairment of uncertain or unknown etiology Plan 67 yo female, living in an unsafe situation at home without heat, phone, water, electric at times, and unable to care for herself. Suicide attempt via carbon monoxide and whiskey ~4 months ago with a 4 week admit to [facility]. Neighbors called 911 for assistance which pt is willing to accept at this time. Neighbors report pt is not taking meds, not eating, not participating in ADL care and hoarding in the home. As she has not paid taxes the home will be auctioned by the [facility] and she has been informed she is not to be in the home at any time. Plan: CV 15. 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 Guadarrama Connect with OP supports, ?residential care 08/26/23 Continue current regime and plan. Diagnostics reviewed Cholesterol 265, LDL 181. Atorvastatin 10 mg daily Vit D3 28.3 D3 10 mcg daily 08/28/23 Continue current regime and plan of care. 08/29/23 Patient reports he is doing well, good mood, no SI at all. Thankful for help received. Patient calmly sitting on bed reading a book. Patient received her food chopped up and there was an order for this to be so. Patient says even though she is edentulous, she has no problems eating regular food that is not cut up; she says she will take it if she has to but it is just not very visually appealing. Tobacco Wrapping Machine Tender discussed with Nursing and there is no record of a swallow evaluation having been done or anything in the notes referencing the need for her food to be chopped. 08/30 continue current treatment plan 08/31 Pleasant, cooperative. Says she is doing well, thankful for help received. Sleeping well, no SI. Patient agreed that she used to drink heavily in the past. She also agrees that likely she was not eating all that well during those times. She does not know about a diagnosis of Korsakoffbut after hearing some of the symptoms she thinks it could be possible. Tobacco Wrapping Machine Tender discussed with her possible trial of Memantin which some studies have shown can help with the cognitive impairment associated with Korsakoff . Tobacco Wrapping Machine Tender reviewed risks/side effects of this medication to which she agreed to start. -will try to verify dx of Korsakoff; and consider memantine 10 mg b.i.d. 09/03/22- Continue current regime and plan. Patient educated on: therapeutic strategies Informed Consent: understands and further education needed Reason for continued inpatient stay Substantial Risk for: rapid decompensation Time Spent With Patient Time: Total time managing care of this patient today ____ minutes.
[2023-09-03 18:00] VITALS: BP 111/61; PULSE 71; TEMP 36.6; O2SAT 96
[2023-09-03] MEDS: traZODone HCL 100 MG TABLET PO (20:42)
[2023-09-03] MEDS: Atorvastatin Calcium 10 MG TABLET PO (20:42)
[2023-09-03] MEDS: ARIPiprazole 10 MG TABLET PO (20:42)
[2023-09-04 08:00] VITALS: BP 135/63; PULSE 56; RESP 16; TEMP 36.1; O2SAT 95
[2023-09-04] MEDS: Escitalopram Oxalate 10 MG TABLET PO (09:16)
[2023-09-04] MEDS: Multivitamin TABLET 1 TAB PO (09:16)
[2023-09-04] MEDS: Apixaban 5 MG TABLET PO ×2 (09:16→19:58)
[2023-09-04] MEDS: Cholecalciferol (Vitamin D3) 10 MCG TABLET PO (09:17)
[2023-09-04] MEDS: Thiamine HCL 100 MG TABLET PO ×2 (09:17→19:58)
[2023-09-04] MEDS: Folic Acid 1 MG TABLET PO (09:17)
--- NOTE | 2023-09-04 10:24 | HO.PSYCHPN ---
Subjective Subjective Date of Service: 09/04/23 Reason For Visit: SEC 12,RECENT SI ATTEMPT,CALM/COOP PER EMS Subjective Notes: Conditional Voluntary Healthcare Proxy: Yes Interim History: Pt reports L knee pain. States this is chronic and is not in need of further assessment. At times I get stiff and limp a bit. Discussed her interests today. Enjoys fiction and reference books along with the unit art activity groups. Discussed conversation with her brother on 09/03. She is agreeable to remain in [place], to have a conference call with him next week and agrees she will have more support in [place] than in [place] as brother is spending most of his intermediate in [facility]. Pt visable in [facility], interactive with some of her peers and asks appropriate questions about peers who are currently struggling and can I do anything different to be of help to them? Medication Compliance: Yes Side effects from medications: No Attending Groups: Intermittent Review of Systems Acute medical concerns: No Medical Review of Systems: unchanged Review of Systems Musculoskeletal: Reports other (Left knee pain-intermittent) Mental Status Exam Mental Status Exam Patient Appearance: Appropriate Patient Orientation: Person, Place, Time and Situation Level of Consciousness: Alert Patient Behavior: Appropriate, Talkative and Good Eye Contact Mood Description: Blunted Affect Description: Blunted Patient Cognition Impaired: Yes Ability to Follow Directions: Good Speech Pattern: Spontaneous Speech and Soft-Spoken Memory Description: Remote Impaired Hallucinations: None Delusions: Not Present Thought Process: Distracted and Rumination Thought Content: positive for Perseveration Depressive Symptoms: Thoughts of /Suicide (denies) Judgement: Poor Diagnostics Vital Signs (24Hr): Vital Signs - 24 hr 09/03/23 18:00 09/04/23 08:00 Temperature 97.9 F 96.9 F Pulse Rate 71 56 Respiratory Rate 16 Blood Pressure 111/61 135/63 Pulse Oximetry 96 95 Oxygen Delivery Method Room Air Room Air BMI result Body Mass Index 24.1 Labs 08/24/23 14:53 08/26/23 08:13 Medications Medications Current Medications Acetaminophen (Acetaminophen 325 Mg Tablet) 650 mg PO Q6H PRN PRN Reason: Headache/Pain Mild Scale (1-3) Last Admin: 08/28/23 19:55 Dose: 650 mg Al Hydroxide/Mg Hydroxide (Magnesium Hydrox/Alum Hydrox 30 Ml Oral.Susp) 30 ml PO Q6H PRN PRN Reason: Heartburn/Nausea Apixaban (Apixaban 5 Mg Tablet) 5 mg PO BID [facility] Last Admin: 09/04/23 09:16 Dose: 5 mg Aripiprazole (Aripiprazole 10 Mg Tablet) 10 mg PO BEDTIME [facility] Last Admin: 09/03/23 20:42 Dose: 10 mg Atorvastatin Calcium (Atorvastatin Calcium 10 Mg Tablet) 10 mg PO BEDTIME [facility] Last Admin: 09/03/23 20:42 Dose: 10 mg Escitalopram Oxalate (Escitalopram Oxalate 10 Mg Tablet) 10 mg PO DAILY [facility] Last Admin: 09/04/23 09:16 Dose: 10 mg Folic Acid (Folic Acid 1 Mg Tablet) 1 mg PO DAILY [facility] Last Admin: 09/04/23 09:17 Dose: 1 mg Haloperidol (Haloperidol 5 Mg Tablet) 5 mg PO BID PRN PRN Reason: severe agitation Hydroxyzine HCl (Hydroxyzine Hcl 25 Mg Tablet) 25 mg PO Q6H PRN PRN Reason: Anxiety Lorazepam (Lorazepam 1 Mg Tablet) 1 mg PO BID PRN PRN Reason: severe agitation Magnesium Hydroxide (Milk Of Magnesia 30 Ml Oral.Susp) 30 ml PO DAILY PRN PRN Reason: Constipation Multivitamins/Vitamin C (Multivitamin Tablet) 1 tab PO DAILY [facility] Last Admin: 09/04/23 09:16 Dose: 1 tab Nicotine Polacrilex (Nicotine Polacrilex Lozenge 2 Mg Lozenge) 2 mg BUCCAL Q2H PRN PRN Reason: Nicotine Cravings Thiamine HCl (Thiamine Hcl 100 Mg Tablet) 100 mg PO BID [facility] Last Admin: 09/04/23 09:17 Dose: 100 mg Trazodone HCl (Trazodone Hcl 50 Mg Tablet) 50 mg PO BEDTIME PRN PRN Reason: Insomnia Trazodone HCl (Trazodone Hcl 100 Mg Tablet) 100 mg PO BEDTIME [facility] Last Admin: 09/03/23 20:42 Dose: 100 mg Vitamin D (Cholecalciferol (Vitamin D3) 10 Mcg Tablet) 10 mcg PO DAILY [facility] Last Admin: 09/04/23 09:17 Dose: 10 mcg Allergies Allergies Allergy/AdvReac Type Severity Reaction Status Date / Time No Known Allergies Allergy Verified 08/24/23 13:03 Assessment & Plan Assessment & Plan (1) Recurrent major depression-severe: Status: Acute Code(s): F33.2 - Major depressive disorder, recurrent severe without psychotic features (2) Mild cognitive impairment: Status: Acute Code(s): G31.84 - Mild cognitive impairment of uncertain or unknown etiology Plan 67 yo female, living in an unsafe situation at home without heat, phone, water, electric at times, and unable to care for herself. Suicide attempt via carbon monoxide and whiskey ~4 months ago with a 4 week admit to [facility]. Neighbors called 911 for assistance which pt is willing to accept at this time. Neighbors report pt is not taking meds, not eating, not participating in ADL care and hoarding in the home. As she has not paid taxes the home will be auctioned by the [facility] and she has been informed she is not to be in the home at any time. Plan: CV 15. 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 Guadarrama Connect with OP supports, ?residential care 08/26/23 Continue current regime and plan. Diagnostics reviewed Cholesterol 265, LDL 181. Atorvastatin 10 mg daily Vit D3 28.3 D3 10 mcg daily 08/28/23 Continue current regime and plan of care. 08/29/23 Patient reports he is doing well, good mood, no SI at all. Thankful for help received. Patient calmly sitting on bed reading a book. Patient received her food chopped up and there was an order for this to be so. Patient says even though she is edentulous, she has no problems eating regular food that is not cut up; she says she will take it if she has to but it is just not very visually appealing. Tower Hoist Operator discussed with Nursing and there is no record of a swallow evaluation having been done or anything in the notes referencing the need for her food to be chopped. 08/30 continue current treatment plan 08/31 Pleasant, cooperative. Says she is doing well, thankful for help received. Sleeping well, no SI. Patient agreed that she used to drink heavily in the past. She also agrees that likely she was not eating all that well during those times. She does not know about a diagnosis of Korsakoffbut after hearing some of the symptoms she thinks it could be possible. Tower Hoist Operator discussed with her possible trial of Memantin which some studies have shown can help with the cognitive impairment associated with Korsakoff . Tower Hoist Operator reviewed risks/side effects of this medication to which she agreed to start. -will try to verify dx of Korsakoff; and consider memantine 10 mg b.i.d. 09/03- Continue current regime/plan. Diagnosis of Korsakoff comes from elder services. We continue to attempt to validate. Currently MVI, Folate, Thiamine in place. Brother may have more information. 09/04- Continue current regime and plan. Patient educated on: other Informed Consent: understands and further education needed Reason for continued inpatient stay Substantial Risk for: rapid decompensation Time Spent With Patient Time: Total time managing care of this patient today ____ minutes.
--- NOTE | 2023-09-04 12:12 | PC.NURSE ---
tw offered to assist pt with showering. pt declined and states she will do it tomorrow.
[2023-09-04 18:00] VITALS: BP 108/56; PULSE 68; TEMP 36.4; O2SAT 96
[2023-09-04] MEDS: Atorvastatin Calcium 10 MG TABLET PO (19:58)
[2023-09-04] MEDS: traZODone HCL 100 MG TABLET PO (19:58)
[2023-09-04] MEDS: ARIPiprazole 10 MG TABLET PO (19:58)
[2023-09-05 08:32] VITALS: BP 114/63; PULSE 63; RESP 16; TEMP 36.3; O2SAT 95
[2023-09-05] MEDS: Apixaban 5 MG TABLET PO ×2 (08:40→20:21)
[2023-09-05] MEDS: Escitalopram Oxalate 10 MG TABLET PO (08:40)
[2023-09-05] MEDS: Folic Acid 1 MG TABLET PO (08:40)
[2023-09-05] MEDS: Cholecalciferol (Vitamin D3) 10 MCG TABLET PO (08:40)
[2023-09-05] MEDS: Thiamine HCL 100 MG TABLET PO ×2 (08:40→20:22)
[2023-09-05] MEDS: Multivitamin TABLET 1 TAB PO (08:40)
--- NOTE | 2023-09-05 16:14 | P.PNPSI_ITS ---
Subjective Subjective Date of Service: 09/05/23 Reason For Visit: SEC 12,RECENT SI ATTEMPT,CALM/COOP PER EMS Subjective Notes: Conditional Voluntary Healthcare Proxy: Yes Interim History: Patient has been come participating on the unit denies active self-harm has been cooperative pleasant on the unit Medication Compliance: Yes Side effects from medications: No Attending Groups: Intermittent Review of Systems Acute medical concerns: No Medical Review of Systems: unchanged Mental Status Exam Mental Status Exam Patient Appearance: Appropriate Patient Orientation: Person, Place, Time and Situation Level of Consciousness: Alert Patient Behavior: Appropriate, Talkative and Good Eye Contact Mood Description: Blunted Affect Description: Blunted Patient Cognition Impaired: Yes Ability to Follow Directions: Good Speech Pattern: Spontaneous Speech and Soft-Spoken Memory Description: Remote Impaired Hallucinations: None Delusions: Not Present Thought Process: Distracted and Rumination Thought Content: positive for Perseveration Depressive Symptoms: Thoughts of /Suicide (denies) Judgement: Poor Diagnostics Vital Signs (24Hr): Vital Signs - 24 hr 09/04/23 18:00 09/05/23 08:32 Temperature 97.5 F 97.4 F Pulse Rate 68 63 Respiratory Rate 16 Blood Pressure 108/56 L 114/63 Pulse Oximetry 96 95 Oxygen Delivery Method Room Air Room Air BMI result Body Mass Index 24.1 Labs 08/24/23 14:53 08/26/23 08:13 Medications Medications Current Medications Acetaminophen (Acetaminophen 325 Mg Tablet) 650 mg PO Q6H PRN PRN Reason: Headache/Pain Mild Scale (1-3) Last Admin: 08/28/23 19:55 Dose: 650 mg Al Hydroxide/Mg Hydroxide (Magnesium Hydrox/Alum Hydrox 30 Ml Oral.Susp) 30 ml PO Q6H PRN PRN Reason: Heartburn/Nausea Apixaban (Apixaban 5 Mg Tablet) 5 mg PO BID [facility] Last Admin: 09/05/23 08:40 Dose: 5 mg Aripiprazole (Aripiprazole 10 Mg Tablet) 10 mg PO BEDTIME KATHERYN Last Admin: 09/04/23 19:58 Dose: 10 mg Atorvastatin Calcium (Atorvastatin Calcium 10 Mg Tablet) 10 mg PO BEDTIME KATHERYN Last Admin: 09/04/23 19:58 Dose: 10 mg Escitalopram Oxalate (Escitalopram Oxalate 10 Mg Tablet) 10 mg PO DAILY KATHERYN Last Admin: 09/05/23 08:40 Dose: 10 mg Folic Acid (Folic Acid 1 Mg Tablet) 1 mg PO DAILY [facility] Last Admin: 09/05/23 08:40 Dose: 1 mg Haloperidol (Haloperidol 5 Mg Tablet) 5 mg PO BID PRN PRN Reason: severe agitation Hydroxyzine HCl (Hydroxyzine Hcl 25 Mg Tablet) 25 mg PO Q6H PRN PRN Reason: Anxiety Lorazepam (Lorazepam 1 Mg Tablet) 1 mg PO BID PRN PRN Reason: severe agitation Magnesium Hydroxide (Milk Of Magnesia 30 Ml Oral.Susp) 30 ml PO DAILY PRN PRN Reason: Constipation Multivitamins/Vitamin C (Multivitamin Tablet) 1 tab PO DAILY [facility] Last Admin: 09/05/23 08:40 Dose: 1 tab Nicotine Polacrilex (Nicotine Polacrilex Lozenge 2 Mg Lozenge) 2 mg BUCCAL Q2H PRN PRN Reason: Nicotine Cravings Thiamine HCl (Thiamine Hcl 100 Mg Tablet) 100 mg PO BID [facility] Last Admin: 09/05/23 08:40 Dose: 100 mg Trazodone HCl (Trazodone Hcl 50 Mg Tablet) 50 mg PO BEDTIME PRN PRN Reason: Insomnia Trazodone HCl (Trazodone Hcl 100 Mg Tablet) 100 mg PO BEDTIME [facility] Last Admin: 09/04/23 19:58 Dose: 100 mg Vitamin D (Cholecalciferol (Vitamin D3) 10 Mcg Tablet) 10 mcg PO DAILY [facility] Last Admin: 09/05/23 08:40 Dose: 10 mcg Allergies Allergies Allergy/AdvReac Type Severity Reaction Status Date / Time No Known Allergies Allergy Verified 08/24/23 13:03 Assessment & Plan Assessment & Plan (1) Recurrent major depression-severe: Status: Acute Code(s): F33.2 - Major depressive disorder, recurrent severe without psychotic features (2) Mild cognitive impairment: Status: Acute Code(s): G31.84 - Mild cognitive impairment of uncertain or unknown etiology Plan 67 yo female, living in an unsafe situation at home without heat, phone, water, electric at times, and unable to care for herself. Suicide attempt via carbon monoxide and whiskey ~4 months ago with a 4 week admit to [facility]. Neighbors called 911 for assistance which pt is willing to accept at this time. Neighbors report pt is not taking meds, not eating, not participating in ADL care and hoarding in the home. As she has not paid taxes the home will be auctioned by the [facility] and she has been informed she is not to be in the home at any time. Plan: CV 15. 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 Guadarrama Connect with OP supports, ?residential care 08/26/23 Continue current regime and plan. Diagnostics reviewed Cholesterol 265, LDL 181. Atorvastatin 10 mg daily Vit D3 28.3 D3 10 mcg daily 08/28/23 Continue current regime and plan of care. 08/29/23 Patient reports he is doing well, good mood, no SI at all. Thankful for help received. Patient calmly sitting on bed reading a book. Patient received her food chopped up and there was an order for this to be so. Patient says even though she is edentulous, she has no problems eating regular food that is not cut up; she says she will take it if she has to but it is just not very visually appealing. Ict Sales Assistant discussed with Nursing and there is no record of a swallow evaluation having been done or anything in the notes referencing the need for her food to be chopped. 08/30 continue current treatment plan 08/31 Pleasant, cooperative. Says she is doing well, thankful for help received. Sleeping well, no SI. Patient agreed that she used to drink heavily in the past. She also agrees that likely she was not eating all that well during those times. She does not know about a diagnosis of Korsakoffbut after hearing some of the symptoms she thinks it could be possible. Ict Sales Assistant discussed with her possible trial of Memantin which some studies have shown can help with the cognitive impairment associated with Korsakoff . Ict Sales Assistant reviewed risks/side effects of this medication to which she agreed to start. -will try to verify dx of Korsakoff; and consider memantine 10 mg b.i.d. 09/03- Continue current regime/plan. Diagnosis of Korsakoff comes from elder services. We continue to attempt to validate. Currently MVI, Folate, Thiamine in place. Brother may have more information. 09/04- Continue current regime and plan. 09/05/2023 Continue current regimen by min discharge planning Reason for continued inpatient stay Substantial Risk for: inability to function and rapid decompensation Time Spent With Patient Time: Total time managing care of this patient today ____ minutes.
[2023-09-05 18:15] VITALS: BP 121/70; PULSE 68; RESP 16; TEMP 36.6; O2SAT 96
[2023-09-05] MEDS: ARIPiprazole 10 MG TABLET PO (20:21)
[2023-09-05] MEDS: Atorvastatin Calcium 10 MG TABLET PO (20:21)
[2023-09-05] MEDS: traZODone HCL 100 MG TABLET PO (20:22)
[2023-09-06 06:00] VITALS: BP 100/56; PULSE 59; TEMP 37; O2SAT 98
[2023-09-06] MEDS: Multivitamin TABLET 1 TAB PO (08:32)
[2023-09-06] MEDS: Apixaban 5 MG TABLET PO ×2 (08:32→21:34)
[2023-09-06] MEDS: Cholecalciferol (Vitamin D3) 10 MCG TABLET PO (08:32)
[2023-09-06] MEDS: Folic Acid 1 MG TABLET PO (08:32)
[2023-09-06] MEDS: Thiamine HCL 100 MG TABLET PO ×2 (08:32→21:34)
[2023-09-06] MEDS: Escitalopram Oxalate 10 MG TABLET PO (08:32)
[2023-09-06] MEDS: ARIPiprazole 10 MG TABLET PO (21:34)
[2023-09-06] MEDS: Atorvastatin Calcium 10 MG TABLET PO (21:34)
[2023-09-06] MEDS: traZODone HCL 100 MG TABLET PO (21:34)
[2023-09-06 21:35] VITALS: BP 105/56; PULSE 67; TEMP 36.4
--- NOTE | 2023-09-06 23:49 | P.PNPSI_ITS ---
Subjective Subjective Date of Service: 09/06/23 Reason For Visit: SEC 12,RECENT SI ATTEMPT,CALM/COOP PER EMS Subjective Notes: Conditional Voluntary Healthcare Proxy: No Guardianship: No Medical Problems Affecting Mental Status: No Interim History: Patient alert cooperative somewhat flattened dysphoric she is coming out of her room more Medication Compliance: Yes Side effects from medications: No Attending Groups: Yes Review of Systems Acute medical concerns: No Medical Review of Systems: unchanged Mental Status Exam Mental Status Exam Patient Appearance: Appropriate Patient Orientation: Person, Place, Time and Situation Level of Consciousness: Alert Patient Behavior: Appropriate, Talkative and Good Eye Contact Mood Description: Blunted Affect Description: Blunted Patient Cognition Impaired: Yes Ability to Follow Directions: Good Speech Pattern: Spontaneous Speech and Soft-Spoken Memory Description: Remote Impaired Hallucinations: None Delusions: Not Present Thought Process: Distracted and Rumination Thought Content: positive for Perseveration Depressive Symptoms: Thoughts of /Suicide (denies) Judgement: Fair Diagnostics Vital Signs (24Hr): Vital Signs - 24 hr 09/06/23 06:00 09/06/23 21:35 Temperature 98.6 F 97.5 F Pulse Rate 59 67 Blood Pressure 100/56 L 105/56 L Pulse Oximetry 98 Oxygen Delivery Method Room Air BMI result Body Mass Index 24.1 Labs 08/24/23 14:53 08/26/23 08:13 Medications Medications Current Medications Acetaminophen (Acetaminophen 325 Mg Tablet) 650 mg PO Q6H PRN PRN Reason: Headache/Pain Mild Scale (1-3) Last Admin: 08/28/23 19:55 Dose: 650 mg Al Hydroxide/Mg Hydroxide (Magnesium Hydrox/Alum Hydrox 30 Ml Oral.Susp) 30 ml PO Q6H PRN PRN Reason: Heartburn/Nausea Apixaban (Apixaban 5 Mg Tablet) 5 mg PO BID [facility] Last Admin: 09/06/23 21:34 Dose: 5 mg Aripiprazole (Aripiprazole 10 Mg Tablet) 10 mg PO BEDTIME KATHERYN Last Admin: 09/06/23 21:34 Dose: 10 mg Atorvastatin Calcium (Atorvastatin Calcium 10 Mg Tablet) 10 mg PO BEDTIME KATHERYN Last Admin: 09/06/23 21:34 Dose: 10 mg Escitalopram Oxalate (Escitalopram Oxalate 10 Mg Tablet) 10 mg PO DAILY KATHERYN Last Admin: 09/06/23 08:32 Dose: 10 mg Folic Acid (Folic Acid 1 Mg Tablet) 1 mg PO DAILY [facility] Last Admin: 09/06/23 08:32 Dose: 1 mg Haloperidol (Haloperidol 5 Mg Tablet) 5 mg PO BID PRN PRN Reason: severe agitation Hydroxyzine HCl (Hydroxyzine Hcl 25 Mg Tablet) 25 mg PO Q6H PRN PRN Reason: Anxiety Lorazepam (Lorazepam 1 Mg Tablet) 1 mg PO BID PRN PRN Reason: severe agitation Magnesium Hydroxide (Milk Of Magnesia 30 Ml Oral.Susp) 30 ml PO DAILY PRN PRN Reason: Constipation Multivitamins/Vitamin C (Multivitamin Tablet) 1 tab PO DAILY [facility] Last Admin: 09/06/23 08:32 Dose: 1 tab Nicotine Polacrilex (Nicotine Polacrilex Lozenge 2 Mg Lozenge) 2 mg BUCCAL Q2H PRN PRN Reason: Nicotine Cravings Thiamine HCl (Thiamine Hcl 100 Mg Tablet) 100 mg PO BID [facility] Last Admin: 09/06/23 21:34 Dose: 100 mg Trazodone HCl (Trazodone Hcl 50 Mg Tablet) 50 mg PO BEDTIME PRN PRN Reason: Insomnia Trazodone HCl (Trazodone Hcl 100 Mg Tablet) 100 mg PO BEDTIME [facility] Last Admin: 09/06/23 21:34 Dose: 100 mg Vitamin D (Cholecalciferol (Vitamin D3) 10 Mcg Tablet) 10 mcg PO DAILY [facility] Last Admin: 09/06/23 08:32 Dose: 10 mcg Allergies Allergies Allergy/AdvReac Type Severity Reaction Status Date / Time No Known Allergies Allergy Verified 08/24/23 13:03 Assessment & Plan Assessment & Plan (1) Recurrent major depression-severe: Status: Acute Code(s): F33.2 - Major depressive disorder, recurrent severe without psychotic features (2) Mild cognitive impairment: Status: Acute Code(s): G31.84 - Mild cognitive impairment of uncertain or unknown etiology Plan 67 yo female, living in an unsafe situation at home without heat, phone, water, electric at times, and unable to care for herself. Suicide attempt via carbon monoxide and whiskey ~4 months ago with a 4 week admit to [facility]. Neighbors called 911 for assistance which pt is willing to accept at this time. Neighbors report pt is not taking meds, not eating, not participating in ADL care and hoarding in the home. As she has not paid taxes the home will be auctioned by the [facility] and she has been informed she is not to be in the home at any time. Plan: CV 15. 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 Guadarrama Connect with OP supports, ?residential care 08/26/23 Continue current regime and plan. Diagnostics reviewed Cholesterol 265, LDL 181. Atorvastatin 10 mg daily Vit D3 28.3 D3 10 mcg daily 08/28/23 Continue current regime and plan of care. 08/29/23 Patient reports he is doing well, good mood, no SI at all. Thankful for help received. Patient calmly sitting on bed reading a book. Patient received her food chopped up and there was an order for this to be so. Patient says even though she is edentulous, she has no problems eating regular food that is not cut up; she says she will take it if she has to but it is just not very visually appealing. Vaccinator discussed with Nursing and there is no record of a swallow evaluation having been done or anything in the notes referencing the need for her food to be chopped. 08/30 continue current treatment plan 08/31 Pleasant, cooperative. Says she is doing well, thankful for help received. Sleeping well, no SI. Patient agreed that she used to drink heavily in the past. She also agrees that likely she was not eating all that well during those times. She does not know about a diagnosis of Korsakoffbut after hearing some of the symptoms she thinks it could be possible. Vaccinator discussed with her possible trial of Memantin which some studies have shown can help with the cognitive impairment associated with Korsakoff . Vaccinator reviewed risks/side effects of this medication to which she agreed to start. -will try to verify dx of Korsakoff; and consider memantine 10 mg b.i.d. 09/03- Continue current regime/plan. Diagnosis of Korsakoff comes from elder services. We continue to attempt to validate. Currently MVI, Folate, Thiamine in place. Brother may have more information. 09/04- Continue current regime and plan. 09/05/2023 Continue current regimen by min discharge planning [id number] Needs reassurance encourage socialization denies active SI continue medication Patient educated on: medication risk/benefits Informed Consent: further education needed Reason for continued inpatient stay Substantial Risk for: harm to self, inability to function and rapid decompensation Time Spent With Patient Time: Total time managing care of this patient today ____ minutes.
[2023-09-07 08:22] VITALS: BP 113/61; PULSE 72; RESP 16; TEMP 36.4; O2SAT 95
[2023-09-07] MEDS: Thiamine HCL 100 MG TABLET PO ×2 (09:11→20:12)
[2023-09-07] MEDS: Multivitamin TABLET 1 TAB PO (09:11)
[2023-09-07] MEDS: Apixaban 5 MG TABLET PO ×2 (09:12→20:12)
[2023-09-07] MEDS: Cholecalciferol (Vitamin D3) 10 MCG TABLET PO (09:12)
[2023-09-07] MEDS: Escitalopram Oxalate 10 MG TABLET PO (09:12)
[2023-09-07] MEDS: Folic Acid 1 MG TABLET PO (09:12)
--- NOTE | 2023-09-07 11:24 | HO.PSYCHPN ---
Subjective Subjective Date of Service: 09/07/23 Reason For Visit: SEC 12,RECENT SI ATTEMPT,CALM/COOP PER EMS Subjective Notes: Conditional Voluntary Interim History: Patient is somewhat apprehensive in does more but shows gradual improvement. Does have anxiety regarding the future engaged on the unit but can be somewhat isolative Mental Status Exam Mental Status Exam Patient Appearance: Appropriate Patient Orientation: Person, Place, Time and Situation Level of Consciousness: Alert Patient Behavior: Appropriate, Talkative and Good Eye Contact Mood Description: Blunted Affect Description: Blunted Patient Cognition Impaired: Yes Ability to Follow Directions: Good Speech Pattern: Spontaneous Speech and Soft-Spoken Memory Description: Remote Impaired Hallucinations: None Delusions: Not Present Thought Process: Distracted and Rumination Thought Content: positive for Perseveration Depressive Symptoms: Thoughts of /Suicide (denies) Judgement: Fair Diagnostics Vital Signs (24Hr): Vital Signs - 24 hr 09/06/23 21:35 Temperature 97.5 F Pulse Rate 67 Blood Pressure 105/56 L BMI result Body Mass Index 24.1 Labs 08/24/23 14:53 08/26/23 08:13 Medications Medications Current Medications Acetaminophen (Acetaminophen 325 Mg Tablet) 650 mg PO Q6H PRN PRN Reason: Headache/Pain Mild Scale (1-3) Last Admin: 08/28/23 19:55 Dose: 650 mg Al Hydroxide/Mg Hydroxide (Magnesium Hydrox/Alum Hydrox 30 Ml Oral.Susp) 30 ml PO Q6H PRN PRN Reason: Heartburn/Nausea Apixaban (Apixaban 5 Mg Tablet) 5 mg PO BID [facility] Last Admin: 09/07/23 09:12 Dose: 5 mg Aripiprazole (Aripiprazole 10 Mg Tablet) 10 mg PO BEDTIME KATHERYN Last Admin: 09/06/23 21:34 Dose: 10 mg Atorvastatin Calcium (Atorvastatin Calcium 10 Mg Tablet) 10 mg PO BEDTIME KATHERYN Last Admin: 09/06/23 21:34 Dose: 10 mg Escitalopram Oxalate (Escitalopram Oxalate 10 Mg Tablet) 10 mg PO DAILY KATHERYN Last Admin: 09/07/23 09:12 Dose: 10 mg Folic Acid (Folic Acid 1 Mg Tablet) 1 mg PO DAILY KATHERYN Last Admin: 09/07/23 09:12 Dose: 1 mg Haloperidol (Haloperidol 5 Mg Tablet) 5 mg PO BID PRN PRN Reason: severe agitation Hydroxyzine HCl (Hydroxyzine Hcl 25 Mg Tablet) 25 mg PO Q6H PRN PRN Reason: Anxiety Magnesium Hydroxide (Milk Of Magnesia 30 Ml Oral.Susp) 30 ml PO DAILY PRN PRN Reason: Constipation Multivitamins/Vitamin C (Multivitamin Tablet) 1 tab PO DAILY [facility] Last Admin: 09/07/23 09:11 Dose: 1 tab Nicotine Polacrilex (Nicotine Polacrilex Lozenge 2 Mg Lozenge) 2 mg BUCCAL Q2H PRN PRN Reason: Nicotine Cravings Thiamine HCl (Thiamine Hcl 100 Mg Tablet) 100 mg PO BID [facility] Last Admin: 09/07/23 09:11 Dose: 100 mg Trazodone HCl (Trazodone Hcl 50 Mg Tablet) 50 mg PO BEDTIME PRN PRN Reason: Insomnia Trazodone HCl (Trazodone Hcl 100 Mg Tablet) 100 mg PO BEDTIME [facility] Last Admin: 09/06/23 21:34 Dose: 100 mg Vitamin D (Cholecalciferol (Vitamin D3) 10 Mcg Tablet) 10 mcg PO DAILY [facility] Last Admin: 09/07/23 09:12 Dose: 10 mcg Allergies Allergies Allergy/AdvReac Type Severity Reaction Status Date / Time No Known Allergies Allergy Verified 08/24/23 13:03 Assessment & Plan Assessment & Plan (1) Recurrent major depression-severe: Status: Acute Code(s): F33.2 - Major depressive disorder, recurrent severe without psychotic features (2) Mild cognitive impairment: Status: Acute Code(s): G31.84 - Mild cognitive impairment of uncertain or unknown etiology Plan 67 yo female, living in an unsafe situation at home without heat, phone, water, electric at times, and unable to care for herself. Suicide attempt via carbon monoxide and whiskey ~4 months ago with a 4 week admit to [facility]. Neighbors called 911 for assistance which pt is willing to accept at this time. Neighbors report pt is not taking meds, not eating, not participating in ADL care and hoarding in the home. As she has not paid taxes the home will be auctioned by the [facility] and she has been informed she is not to be in the home at any time. Plan: CV 15. 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 Guadarrama Connect with OP supports, ?residential care 08/26/23 Continue current regime and plan. Diagnostics reviewed Cholesterol 265, LDL 181. Atorvastatin 10 mg daily Vit D3 28.3 D3 10 mcg daily 08/28/23 Continue current regime and plan of care. 08/29/23 Patient reports he is doing well, good mood, no SI at all. Thankful for help received. Patient calmly sitting on bed reading a book. Patient received her food chopped up and there was an order for this to be so. Patient says even though she is edentulous, she has no problems eating regular food that is not cut up; she says she will take it if she has to but it is just not very visually appealing. School Library [employer] Program Director discussed with Nursing and there is no record of a swallow evaluation having been done or anything in the notes referencing the need for her food to be chopped. 08/30 continue current treatment plan 08/31 Pleasant, cooperative. Says she is doing well, thankful for help received. Sleeping well, no SI. Patient agreed that she used to drink heavily in the past. She also agrees that likely she was not eating all that well during those times. She does not know about a diagnosis of Korsakoffbut after hearing some of the symptoms she thinks it could be possible. School Library Media Program Director discussed with her possible trial of Memantin which some studies have shown can help with the cognitive impairment associated with Korsakoff . School Library Media Program Director reviewed risks/side effects of this medication to which she agreed to start. -will try to verify dx of Korsakoff; and consider memantine 10 mg b.i.d. 09/03- Continue current regime/plan. Diagnosis of Korsakoff comes from elder services. We continue to attempt to validate. Currently MVI, Folate, Thiamine in place. Brother may have more information. 09/04- Continue current regime and plan. 09/05/2023 Continue current regimen by min discharge planning 09/07/2023 Continue discharge planning improving mood late entry Reason for continued inpatient stay Substantial Risk for: harm to self, inability to function and rapid decompensation Time Spent With Patient Time: Total time managing care of this patient today ____ minutes.
[2023-09-07 18:20] VITALS: BP 123/72; PULSE 78; RESP 16; TEMP 37.1; O2SAT 95
[2023-09-07] MEDS: traZODone HCL 100 MG TABLET PO (20:12)
[2023-09-07] MEDS: ARIPiprazole 10 MG TABLET PO (20:12)
[2023-09-07] MEDS: Atorvastatin Calcium 10 MG TABLET PO (20:12)
[2023-09-08 06:00] VITALS: BP 121/57; PULSE 64; RESP 16; TEMP 37.1; O2SAT 97
[2023-09-08] MEDS: Apixaban 5 MG TABLET PO ×2 (08:02→21:34)
[2023-09-08] MEDS: Multivitamin TABLET 1 TAB PO (08:03)
[2023-09-08] MEDS: Cholecalciferol (Vitamin D3) 10 MCG TABLET PO (08:03)
[2023-09-08] MEDS: Thiamine HCL 100 MG TABLET PO ×2 (08:03→21:34)
[2023-09-08] MEDS: Folic Acid 1 MG TABLET PO (08:03)
[2023-09-08] MEDS: Escitalopram Oxalate 10 MG TABLET PO (08:03)
--- NOTE | 2023-09-08 16:10 | P.PNPSI_ITS ---
Subjective Subjective Date of Service: 09/08/23 Reason For Visit: SEC 12,RECENT SI ATTEMPT,CALM/COOP PER EMS Subjective Notes: Conditional Voluntary Healthcare Proxy: No Guardianship: No Medical Problems Affecting Mental Status: No Interim History: Pt with gradual improvement. Review of treatment plan with pt. She is pleased with her progress and reports she is feeling improved. VANITA signed for [facility]-pt had some testing when admitted to the [facility] which she would like follow up on. Reports she feels ready to move forward with the next step in her plan-finding housing. Medication Compliance: Yes Side effects from medications: No Attending Groups: Yes Review of Systems Acute medical concerns: No Medical Review of Systems: unchanged Review of Systems Review of Systems Yes all other systems are reviewed and are negative (denies current sx) Mental Status Exam Mental Status Exam Patient Appearance: Appropriate Patient Orientation: Person, Place, Time and Situation Level of Consciousness: Alert Patient Behavior: Appropriate, Talkative and Good Eye Contact Mood Description: Blunted Affect Description: Blunted Patient Cognition Impaired: Yes Ability to Follow Directions: Good Speech Pattern: Spontaneous Speech and Soft-Spoken Memory Description: Remote Impaired Hallucinations: None Delusions: Not Present Thought Process: Distracted and Rumination Thought Content: positive for Perseveration Depressive Symptoms: Thoughts of /Suicide (denies) Judgement: Fair Diagnostics Vital Signs (24Hr): Vital Signs - 24 hr 09/07/23 18:20 09/08/23 06:00 Temperature 98.7 F 98.7 F Pulse Rate 78 64 Respiratory Rate 16 16 Blood Pressure 123/72 121/57 L Pulse Oximetry 95 97 Oxygen Delivery Method Room Air Room Air BMI result Body Mass Index 24.1 Labs 08/24/23 14:53 08/26/23 08:13 Medications Medications Current Medications Acetaminophen (Acetaminophen 325 Mg Tablet) 650 mg PO Q6H PRN PRN Reason: Headache/Pain Mild Scale (1-3) Last Admin: 08/28/23 19:55 Dose: 650 mg Al Hydroxide/Mg Hydroxide (Magnesium Hydrox/Alum Hydrox 30 Ml Oral.Susp) 30 ml PO Q6H PRN PRN Reason: Heartburn/Nausea Apixaban (Apixaban 5 Mg Tablet) 5 mg PO BID [facility] Last Admin: 09/08/23 08:02 Dose: 5 mg Aripiprazole (Aripiprazole 10 Mg Tablet) 10 mg PO BEDTIME [facility] Last Admin: 09/07/23 20:12 Dose: 10 mg Atorvastatin Calcium (Atorvastatin Calcium 10 Mg Tablet) 10 mg PO BEDTIME [facility] Last Admin: 09/07/23 20:12 Dose: 10 mg Escitalopram Oxalate (Escitalopram Oxalate 10 Mg Tablet) 10 mg PO DAILY [facility] Last Admin: 09/08/23 08:03 Dose: 10 mg Folic Acid (Folic Acid 1 Mg Tablet) 1 mg PO DAILY [facility] Last Admin: 09/08/23 08:03 Dose: 1 mg Haloperidol (Haloperidol 5 Mg Tablet) 5 mg PO BID PRN PRN Reason: severe agitation Hydroxyzine HCl (Hydroxyzine Hcl 25 Mg Tablet) 25 mg PO Q6H PRN PRN Reason: Anxiety Lorazepam (Lorazepam 1 Mg Tablet) 1 mg PO BID PRN PRN Reason: anxiety/restlessness Magnesium Hydroxide (Milk Of Magnesia 30 Ml Oral.Susp) 30 ml PO DAILY PRN PRN Reason: Constipation Multivitamins/Vitamin C (Multivitamin Tablet) 1 tab PO DAILY [facility] Last Admin: 09/08/23 08:03 Dose: 1 tab Nicotine Polacrilex (Nicotine Polacrilex Lozenge 2 Mg Lozenge) 2 mg BUCCAL Q2H PRN PRN Reason: Nicotine Cravings Thiamine HCl (Thiamine Hcl 100 Mg Tablet) 100 mg PO BID [facility] Last Admin: 09/08/23 08:03 Dose: 100 mg Trazodone HCl (Trazodone Hcl 50 Mg Tablet) 50 mg PO BEDTIME PRN PRN Reason: Insomnia Trazodone HCl (Trazodone Hcl 100 Mg Tablet) 100 mg PO BEDTIME [facility] Last Admin: 09/07/23 20:12 Dose: 100 mg Vitamin D (Cholecalciferol (Vitamin D3) 10 Mcg Tablet) 10 mcg PO DAILY [facility] Last Admin: 09/08/23 08:03 Dose: 10 mcg Allergies Allergies Allergy/AdvReac Type Severity Reaction Status Date / Time No Known Allergies Allergy Verified 08/24/23 13:03 Assessment & Plan Assessment & Plan (1) Recurrent major depression-severe: Status: Acute Code(s): F33.2 - Major depressive disorder, recurrent severe without psychotic features (2) Mild cognitive impairment: Status: Acute Code(s): G31.84 - Mild cognitive impairment of uncertain or unknown etiology Plan 67 yo female, living in an unsafe situation at home without heat, phone, water, electric at times, and unable to care for herself. Suicide attempt via carbon monoxide and whiskey ~4 months ago with a 4 week admit to [facility]. Neighbors called 911 for assistance which pt is willing to accept at this time. Neighbors report pt is not taking meds, not eating, not participating in ADL care and hoarding in the home. As she has not paid taxes the home will be auctioned by the [facility] and she has been informed she is not to be in the home at any time. Plan: CV 15. 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 Guadarrama Connect with OP supports, ?residential care 08/26/23 Continue current regime and plan. Diagnostics reviewed Cholesterol 265, LDL 181. Atorvastatin 10 mg daily Vit D3 28.3 D3 10 mcg daily 08/28/23 Continue current regime and plan of care. 08/29/23 Patient reports he is doing well, good mood, no SI at all. Thankful for help received. Patient calmly sitting on bed reading a book. Patient received her food chopped up and there was an order for this to be so. Patient says even though she is edentulous, she has no problems eating regular food that is not cut up; she says she will take it if she has to but it is just not very visually appealing. Gymnastics Coach Or Instructor discussed with Nursing and there is no record of a swallow evaluation having been done or anything in the notes referencing the need for her food to be chopped. 08/30 continue current treatment plan 08/31 Pleasant, cooperative. Says she is doing well, thankful for help received. Sleeping well, no SI. Patient agreed that she used to drink heavily in the past. She also agrees that likely she was not eating all that well during those times. She does not know about a diagnosis of Korsakoffbut after hearing some of the symptoms she thinks it could be possible. Gymnastics Coach Or Instructor discussed with her possible trial of Memantin which some studies have shown can help with the cognitive impairment associated with Korsakoff . Gymnastics Coach Or Instructor reviewed risks/side effects of this medication to which she agreed to start. -will try to verify dx of Korsakoff; and consider memantine 10 mg b.i.d. 09/03- Continue current regime/plan. Diagnosis of Korsakoff comes from elder services. We continue to attempt to validate. Currently MVI, Folate, Thiamine in place. Brother may have more information. 09/04- Continue current regime and plan. 09/05/2023 Continue current regimen by min discharge planning 09/08/23 Continue current regime and plan of care Meeting with brother via phone this week Placement Patient educated on: medication risk/benefits, therapeutic strategies and medical condition Informed Consent: further education needed Reason for continued inpatient stay Substantial Risk for: rapid decompensation Time Spent With Patient Time: Total time managing care of this patient today ____ minutes.
[2023-09-08 18:00] VITALS: BP 130/75; PULSE 64; TEMP 36.8; O2SAT 96
[2023-09-08] MEDS: ARIPiprazole 10 MG TABLET PO (21:34)
[2023-09-08] MEDS: Atorvastatin Calcium 10 MG TABLET PO (21:34)
[2023-09-08] MEDS: traZODone HCL 100 MG TABLET PO (21:34)
[2023-09-09 08:32] VITALS: PULSE 59; RESP 16; TEMP 36.3; O2SAT 98
[2023-09-09] MEDS: Thiamine HCL 100 MG TABLET PO ×2 (09:09→22:27)
[2023-09-09] MEDS: Cholecalciferol (Vitamin D3) 10 MCG TABLET PO (09:09)
[2023-09-09] MEDS: Folic Acid 1 MG TABLET PO (09:09)
[2023-09-09] MEDS: Apixaban 5 MG TABLET PO ×2 (09:09→22:26)
[2023-09-09] MEDS: Multivitamin TABLET 1 TAB PO (09:09)
[2023-09-09] MEDS: Escitalopram Oxalate 10 MG TABLET PO (09:09)
--- NOTE | 2023-09-09 14:56 | P.PNPSI_ITS ---
Subjective Subjective Reason For Visit: SEC 12,RECENT SI ATTEMPT,CALM/COOP PER EMS Diagnostics Vital Signs (24Hr): Vital Signs - 24 hr 09/08/23 18:00 09/09/23 08:32 Temperature 98.3 F 97.4 F Pulse Rate 64 59 Respiratory Rate 16 Blood Pressure 130/75 Pulse Oximetry 96 98 Oxygen Delivery Method Room Air Room Air BMI result Body Mass Index 24.1 Labs 08/24/23 14:53 08/26/23 08:13 Medications Medications Current Medications Acetaminophen (Acetaminophen 325 Mg Tablet) 650 mg PO Q6H PRN PRN Reason: Headache/Pain Mild Scale (1-3) Last Admin: 08/28/23 19:55 Dose: 650 mg Al Hydroxide/Mg Hydroxide (Magnesium Hydrox/Alum Hydrox 30 Ml Oral.Susp) 30 ml PO Q6H PRN PRN Reason: Heartburn/Nausea Apixaban (Apixaban 5 Mg Tablet) 5 mg PO BID [facility] Last Admin: 09/09/23 09:09 Dose: 5 mg Aripiprazole (Aripiprazole 10 Mg Tablet) 10 mg PO BEDTIME [facility] Last Admin: 09/08/23 21:34 Dose: 10 mg Atorvastatin Calcium (Atorvastatin Calcium 10 Mg Tablet) 10 mg PO BEDTIME [facility] Last Admin: 09/08/23 21:34 Dose: 10 mg Escitalopram Oxalate (Escitalopram Oxalate 10 Mg Tablet) 10 mg PO DAILY [facility] Last Admin: 09/09/23 09:09 Dose: 10 mg Folic Acid (Folic Acid 1 Mg Tablet) 1 mg PO DAILY [facility] Last Admin: 09/09/23 09:09 Dose: 1 mg Haloperidol (Haloperidol 5 Mg Tablet) 5 mg PO BID PRN PRN Reason: severe agitation Hydroxyzine HCl (Hydroxyzine Hcl 25 Mg Tablet) 25 mg PO Q6H PRN PRN Reason: Anxiety Lorazepam (Lorazepam 1 Mg Tablet) 1 mg PO BID PRN PRN Reason: anxiety/restlessness Magnesium Hydroxide (Milk Of Magnesia 30 Ml Oral.Susp) 30 ml PO DAILY PRN PRN Reason: Constipation Multivitamins/Vitamin C (Multivitamin Tablet) 1 tab PO DAILY [facility] Last Admin: 09/09/23 09:09 Dose: 1 tab Nicotine Polacrilex (Nicotine Polacrilex Lozenge 2 Mg Lozenge) 2 mg BUCCAL Q2H PRN PRN Reason: Nicotine Cravings Thiamine HCl (Thiamine Hcl 100 Mg Tablet) 100 mg PO BID [facility] Last Admin: 09/09/23 09:09 Dose: 100 mg Trazodone HCl (Trazodone Hcl 50 Mg Tablet) 50 mg PO BEDTIME PRN PRN Reason: Insomnia Trazodone HCl (Trazodone Hcl 100 Mg Tablet) 100 mg PO BEDTIME [facility] Last Admin: 09/08/23 21:34 Dose: 100 mg Vitamin D (Cholecalciferol (Vitamin D3) 10 Mcg Tablet) 10 mcg PO DAILY [facility] Last Admin: 09/09/23 09:09 Dose: 10 mcg Allergies Allergies Allergy/AdvReac Type Severity Reaction Status Date / Time No Known Allergies Allergy Verified 08/24/23 13:03 Assessment & Plan Assessment & Plan (1) Recurrent major depression-severe: Status: Acute Code(s): F33.2 - Major depressive disorder, recurrent severe without psychotic features (2) Mild cognitive impairment: Status: Acute Code(s): G31.84 - Mild cognitive impairment of uncertain or unknown etiology Plan 67 yo female, living in an unsafe situation at home without heat, phone, water, electric at times, and unable to care for herself. Suicide attempt via carbon monoxide and whiskey ~4 months ago with a 4 week admit to [facility]. Neighbors called 911 for assistance which pt is willing to accept at this time. Neighbors report pt is not taking meds, not eating, not participating in ADL care and hoarding in the home. As she has not paid taxes the home will be auctioned by the [facility] and she has been informed she is not to be in the home at any time. Plan: CV 15. 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 Guadarrama Connect with OP supports, ?residential care 08/26/23 Continue current regime and plan. Diagnostics reviewed Cholesterol 265, LDL 181. Atorvastatin 10 mg daily Vit D3 28.3 D3 10 mcg daily 08/28/23 Continue current regime and plan of care. 08/29/23 Patient reports he is doing well, good mood, no SI at all. Thankful for help received. Patient calmly sitting on bed reading a book. Patient received her food chopped up and there was an order for this to be so. Patient says even though she is edentulous, she has no problems eating regular food that is not cut up; she says she will take it if she has to but it is just not very visually appealing. Assembly Stock Supervisor discussed with Nursing and there is no record of a swallow evaluation having been done or anything in the notes referencing the need for her food to be chopped. 08/30 continue current treatment plan 08/31 Pleasant, cooperative. Says she is doing well, thankful for help received. Sleeping well, no SI. Patient agreed that she used to drink heavily in the past. She also agrees that likely she was not eating all that well during those times. She does not know about a diagnosis of Korsakoffbut after hearing some of the symptoms she thinks it could be possible. Assembly Stock Supervisor discussed with her possible trial of Memantin which some studies have shown can help with the cognitive impairment associated with Korsakoff . Assembly Stock Supervisor reviewed risks/side effects of this medication to which she agreed to start. -will try to verify dx of Korsakoff; and consider memantine 10 mg b.i.d. 09/03- Continue current regime/plan. Diagnosis of Korsakoff comes from elder services. We continue to attempt to validate. Currently MVI, Folate, Thiamine in place. Brother may have more information. 09/04- Continue current regime and plan. 09/05/2023 Continue current regimen by min discharge planning 09/07/2023 Continue discharge planning improving mood late entry Time Spent With Patient Time: Total time managing care of this patient today ____ minutes.
[2023-09-09 18:45] VITALS: BP 122/70; PULSE 78; RESP 16; TEMP 36.6; O2SAT 96
[2023-09-09] MEDS: ARIPiprazole 10 MG TABLET PO (22:26)
[2023-09-09] MEDS: traZODone HCL 100 MG TABLET PO (22:27)
[2023-09-09] MEDS: Atorvastatin Calcium 10 MG TABLET PO (22:27)
--- NOTE | 2023-09-09 23:14 | P.PNPSI_ITS ---
Subjective Subjective Date of Service: 09/09/23 Reason For Visit: SEC 12,RECENT SI ATTEMPT,CALM/COOP PER EMS Interim History: Patient with much improved mood more social and engaged brighter affect Mental Status Exam Mental Status Exam Patient Appearance: Appropriate Patient Orientation: Person, Place, Time and Situation Level of Consciousness: Alert Patient Behavior: Appropriate, Talkative and Good Eye Contact Mood Description: Calm and Blunted Affect Description: Constricted Patient Cognition Impaired: Yes Ability to Follow Directions: Good Speech Pattern: Spontaneous Speech and Soft-Spoken Memory Description: Remote Impaired Hallucinations: None Delusions: Not Present Thought Process: Distracted and Rumination Thought Content: positive for Perseveration Depressive Symptoms: Thoughts of /Suicide (denies) Judgement and Insight: Improving mood in judgment adams affect Diagnostics Vital Signs (24Hr): Vital Signs - 24 hr 09/09/23 08:32 09/09/23 18:45 Temperature 97.4 F 97.8 F Pulse Rate 59 78 Respiratory Rate 16 16 Blood Pressure 122/70 Pulse Oximetry 98 96 Oxygen Delivery Method Room Air Room Air BMI result Body Mass Index 24.1 Labs 08/24/23 14:53 08/26/23 08:13 Medications Medications Current Medications Acetaminophen (Acetaminophen 325 Mg Tablet) 650 mg PO Q6H PRN PRN Reason: Headache/Pain Mild Scale (1-3) Last Admin: 08/28/23 19:55 Dose: 650 mg Al Hydroxide/Mg Hydroxide (Magnesium Hydrox/Alum Hydrox 30 Ml Oral.Susp) 30 ml PO Q6H PRN PRN Reason: Heartburn/Nausea Apixaban (Apixaban 5 Mg Tablet) 5 mg PO BID [facility] Last Admin: 09/09/23 22:26 Dose: 5 mg Aripiprazole (Aripiprazole 10 Mg Tablet) 10 mg PO BEDTIME [facility] Last Admin: 09/09/23 22:26 Dose: 10 mg Atorvastatin Calcium (Atorvastatin Calcium 10 Mg Tablet) 10 mg PO BEDTIME [facility] Last Admin: 09/09/23 22:27 Dose: 10 mg Escitalopram Oxalate (Escitalopram Oxalate 10 Mg Tablet) 10 mg PO DAILY [facility] Last Admin: 09/09/23 09:09 Dose: 10 mg Folic Acid (Folic Acid 1 Mg Tablet) 1 mg PO DAILY [facility] Last Admin: 09/09/23 09:09 Dose: 1 mg Haloperidol (Haloperidol 5 Mg Tablet) 5 mg PO BID PRN PRN Reason: severe agitation Hydroxyzine HCl (Hydroxyzine Hcl 25 Mg Tablet) 25 mg PO Q6H PRN PRN Reason: Anxiety Lorazepam (Lorazepam 1 Mg Tablet) 1 mg PO BID PRN PRN Reason: anxiety/restlessness Magnesium Hydroxide (Milk Of Magnesia 30 Ml Oral.Susp) 30 ml PO DAILY PRN PRN Reason: Constipation Multivitamins/Vitamin C (Multivitamin Tablet) 1 tab PO DAILY [facility] Last Admin: 09/09/23 09:09 Dose: 1 tab Nicotine Polacrilex (Nicotine Polacrilex Lozenge 2 Mg Lozenge) 2 mg BUCCAL Q2H PRN PRN Reason: Nicotine Cravings Thiamine HCl (Thiamine Hcl 100 Mg Tablet) 100 mg PO BID [facility] Last Admin: 09/09/23 22:27 Dose: 100 mg Trazodone HCl (Trazodone Hcl 50 Mg Tablet) 50 mg PO BEDTIME PRN PRN Reason: Insomnia Trazodone HCl (Trazodone Hcl 100 Mg Tablet) 100 mg PO BEDTIME [facility] Last Admin: 09/09/23 22:27 Dose: 100 mg Vitamin D (Cholecalciferol (Vitamin D3) 10 Mcg Tablet) 10 mcg PO DAILY [facility] Last Admin: 09/09/23 09:09 Dose: 10 mcg Allergies Allergies Allergy/AdvReac Type Severity Reaction Status Date / Time No Known Allergies Allergy Verified 08/24/23 13:03 Assessment & Plan Assessment & Plan (1) Recurrent major depression-severe: Status: Acute Code(s): F33.2 - Major depressive disorder, recurrent severe without psychotic features (2) Mild cognitive impairment: Status: Acute Code(s): G31.84 - Mild cognitive impairment of uncertain or unknown etiology Plan 67 yo female, living in an unsafe situation at home without heat, phone, water, electric at times, and unable to care for herself. Suicide attempt via carbon monoxide and whiskey ~4 months ago with a 4 week admit to [facility]. Neighbors called 911 for assistance which pt is willing to accept at this time. Neighbors report pt is not taking meds, not eating, not participating in ADL care and hoarding in the home. As she has not paid taxes the home will be auctioned by the [facility] and she has been informed she is not to be in the home at any time. Plan: CV 15. 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 Guadarrama Connect with OP supports, ?residential care 08/26/23 Continue current regime and plan. Diagnostics reviewed Cholesterol 265, LDL 181. Atorvastatin 10 mg daily Vit D3 28.3 D3 10 mcg daily 08/28/23 Continue current regime and plan of care. 08/29/23 Patient reports he is doing well, good mood, no SI at all. Thankful for help received. Patient calmly sitting on bed reading a book. Patient received her food chopped up and there was an order for this to be so. Patient says even though she is edentulous, she has no problems eating regular food that is not cut up; she says she will take it if she has to but it is just not very visually appealing. Cotton Ball Bagger discussed with Nursing and there is no record of a swallow evaluation having been done or anything in the notes referencing the need for her food to be chopped. 08/30 continue current treatment plan 08/31 Pleasant, cooperative. Says she is doing well, thankful for help received. Sleeping well, no SI. Patient agreed that she used to drink heavily in the past. She also agrees that likely she was not eating all that well during those times. She does not know about a diagnosis of Korsakoffbut after hearing some of the symptoms she thinks it could be possible. Cotton Ball Bagger discussed with her possible trial of Memantin which some studies have shown can help with the cognitive impairment associated with Korsakoff . Cotton Ball Bagger reviewed risks/side effects of this medication to which she agreed to start. -will try to verify dx of Korsakoff; and consider memantine 10 mg b.i.d. 09/03- Continue current regime/plan. Diagnosis of Korsakoff comes from elder services. We continue to attempt to validate. Currently MVI, Folate, Thiamine in place. Brother may have more information. 09/04- Continue current regime and plan. 09/05/2023 Continue current regimen by min discharge planning 09/07/2023 Continue discharge planning improving mood late entry 09/09/2023 Continue plan of care patient does seem to very much respond to the milieu and engagement with others patient might benefit from partial hospital program seems to benefit from engaged milieu and engaging with others unclear if this will be practical denies any active SI Reason for continued inpatient stay Substantial Risk for: harm to self and rapid decompensation Time Spent With Patient Time: Total time managing care of this patient today ____ minutes.
[2023-09-10 07:00] VITALS: BMI 25.0
[2023-09-10 08:10] VITALS: BP 139/72; PULSE 60; RESP 16; TEMP 36.4; O2SAT 99
[2023-09-10] MEDS: Cholecalciferol (Vitamin D3) 10 MCG TABLET PO (08:45)
[2023-09-10] MEDS: Thiamine HCL 100 MG TABLET PO ×2 (08:45→22:05)
[2023-09-10] MEDS: Multivitamin TABLET 1 TAB PO (08:46)
[2023-09-10] MEDS: Escitalopram Oxalate 10 MG TABLET PO (08:46)
[2023-09-10] MEDS: Folic Acid 1 MG TABLET PO (08:46)
[2023-09-10] MEDS: Apixaban 5 MG TABLET PO ×2 (08:46→22:05)
[2023-09-10 18:00] VITALS: BP 124/72; PULSE 72; TEMP 36.8; O2SAT 98
[2023-09-10] MEDS: ARIPiprazole 10 MG TABLET PO (22:05)
[2023-09-10] MEDS: traZODone HCL 100 MG TABLET PO (22:05)
[2023-09-10] MEDS: Atorvastatin Calcium 10 MG TABLET PO (22:05)
--- NOTE | 2023-09-11 07:51 | P.PNPSI_ITS ---
Subjective Subjective Date of Service: 09/10/23 Reason For Visit: SEC 12,RECENT SI ATTEMPT,CALM/COOP PER EMS Subjective Notes: Conditional Voluntary Healthcare Proxy: No Guardianship: No Medical Problems Affecting Mental Status: No Interim History: Pt, Jose Espinosa and tw pilo pt's brother [phone] regarding placement options, financial constraints and [facility] application. Pt had a full range of affect when talking with brother with STM loss evidenced. Application for [facility] completed-team awaits financial information from HCP. Pt is interactive with peers in the milieu and more engaged with the milieu activity. Medication Compliance: Yes Side effects from medications: No Attending Groups: Yes Review of Systems Acute medical concerns: No Medical Review of Systems: unchanged Review of Systems Review of Systems Yes all other systems are reviewed and are negative (denies) Mental Status Exam Mental Status Exam Patient Appearance: Appropriate Patient Orientation: Person, Place, Time and Situation Level of Consciousness: Alert Patient Behavior: Appropriate, Talkative and Good Eye Contact Mood Description: Calm and Blunted Affect Description: Constricted Patient Cognition Impaired: Yes Ability to Follow Directions: Good Speech Pattern: Spontaneous Speech and Soft-Spoken Memory Description: Remote Impaired Hallucinations: None Delusions: Not Present Thought Process: Distracted and Rumination Thought Content: positive for Perseveration Depressive Symptoms: Thoughts of /Suicide (denies) Judgement and Insight: Improving mood in judgment adams affect Diagnostics Vital Signs (24Hr): Vital Signs - 24 hr 09/10/23 08:10 09/10/23 18:00 Temperature 97.6 F 98.2 F Pulse Rate 60 72 Respiratory Rate 16 Blood Pressure 139/72 124/72 Pulse Oximetry 99 98 Oxygen Delivery Method Room Air Room Air BMI result Body Mass Index 25.0 Labs 08/24/23 14:53 08/26/23 08:13 Medications Medications Current Medications Acetaminophen (Acetaminophen 325 Mg Tablet) 650 mg PO Q6H PRN PRN Reason: Headache/Pain Mild Scale (1-3) Last Admin: 08/28/23 19:55 Dose: 650 mg Al Hydroxide/Mg Hydroxide (Magnesium Hydrox/Alum Hydrox 30 Ml Oral.Susp) 30 ml PO Q6H PRN PRN Reason: Heartburn/Nausea Apixaban (Apixaban 5 Mg Tablet) 5 mg PO BID [facility] Last Admin: 09/10/23 22:05 Dose: 5 mg Aripiprazole (Aripiprazole 10 Mg Tablet) 10 mg PO BEDTIME [facility] Last Admin: 09/10/23 22:05 Dose: 10 mg Atorvastatin Calcium (Atorvastatin Calcium 10 Mg Tablet) 10 mg PO BEDTIME [facility] Last Admin: 09/10/23 22:05 Dose: 10 mg Escitalopram Oxalate (Escitalopram Oxalate 10 Mg Tablet) 10 mg PO DAILY [facility] Last Admin: 09/10/23 08:46 Dose: 10 mg Folic Acid (Folic Acid 1 Mg Tablet) 1 mg PO DAILY [facility] Last Admin: 09/10/23 08:46 Dose: 1 mg Haloperidol (Haloperidol 5 Mg Tablet) 5 mg PO BID PRN PRN Reason: severe agitation Hydroxyzine HCl (Hydroxyzine Hcl 25 Mg Tablet) 25 mg PO Q6H PRN PRN Reason: Anxiety Lorazepam (Lorazepam 1 Mg Tablet) 1 mg PO BID PRN PRN Reason: anxiety/restlessness Magnesium Hydroxide (Milk Of Magnesia 30 Ml Oral.Susp) 30 ml PO DAILY PRN PRN Reason: Constipation Multivitamins/Vitamin C (Multivitamin Tablet) 1 tab PO DAILY [facility] Last Admin: 09/10/23 08:46 Dose: 1 tab Nicotine Polacrilex (Nicotine Polacrilex Lozenge 2 Mg Lozenge) 2 mg BUCCAL Q2H PRN PRN Reason: Nicotine Cravings Thiamine HCl (Thiamine Hcl 100 Mg Tablet) 100 mg PO BID [facility] Last Admin: 09/10/23 22:05 Dose: 100 mg Trazodone HCl (Trazodone Hcl 50 Mg Tablet) 50 mg PO BEDTIME PRN PRN Reason: Insomnia Trazodone HCl (Trazodone Hcl 100 Mg Tablet) 100 mg PO BEDTIME [facility] Last Admin: 09/10/23 22:05 Dose: 100 mg Vitamin D (Cholecalciferol (Vitamin D3) 10 Mcg Tablet) 10 mcg PO DAILY [facility] Last Admin: 09/10/23 08:45 Dose: 10 mcg Allergies Allergies Allergy/AdvReac Type Severity Reaction Status Date / Time No Known Allergies Allergy Verified 08/24/23 13:03 Assessment & Plan Assessment & Plan (1) Recurrent major depression-severe: Status: Acute Code(s): F33.2 - Major depressive disorder, recurrent severe without psychotic features (2) Mild cognitive impairment: Status: Acute Code(s): G31.84 - Mild cognitive impairment of uncertain or unknown etiology Plan 12/28/23- Continue current regime and plan. Placement search has been initiated by the team. Pt/family are in agreement. Patient educated on: other Guardian/Caregiver educated on: other Informed Consent: further education needed Reason for continued inpatient stay Substantial Risk for: rapid decompensation Time Spent With Patient Time: Total time managing care of this patient today ____ minutes.
[2023-09-11 08:00] VITALS: BP 101/58; PULSE 56; TEMP 36.8; O2SAT 98
[2023-09-11] MEDS: Folic Acid 1 MG TABLET PO (09:26)
[2023-09-11] MEDS: Escitalopram Oxalate 10 MG TABLET PO (09:26)
[2023-09-11] MEDS: Thiamine HCL 100 MG TABLET PO ×2 (09:26→21:52)
[2023-09-11] MEDS: Multivitamin TABLET 1 TAB PO (09:26)
[2023-09-11] MEDS: Cholecalciferol (Vitamin D3) 10 MCG TABLET PO (09:26)
[2023-09-11] MEDS: Apixaban 5 MG TABLET PO ×2 (09:26→21:52)
--- NOTE | 2023-09-11 16:22 | P.PNPSI_ITS ---
Subjective Subjective Date of Service: 09/11/23 Reason For Visit: SEC 12,RECENT SI ATTEMPT,CALM/COOP PER EMS Subjective Notes: Conditional Voluntary Healthcare Proxy: No Guardianship: No Medical Problems Affecting Mental Status: No Interim History: Pt reviewed her [employer] application today and added some details. Reviewed her medicines and was able to identify medication purpose and discuss efficacy. She does report some sadness given all of the recent changes, pending loss of the home and probably needing to give the dogs to new homes. Will increase Lexapro which she agrees with. Interactive with peers and enjoying their company in milieu groups and activities. Medication Compliance: Yes Side effects from medications: No Attending Groups: Yes Review of Systems Acute medical concerns: No Medical Review of Systems: unchanged Review of Systems Review of Systems Yes all other systems are reviewed and are negative (denies) Mental Status Exam Mental Status Exam Patient Appearance: Appropriate Patient Orientation: Person, Place, Time and Situation Level of Consciousness: Alert Patient Behavior: Appropriate, Talkative and Good Eye Contact Mood Description: Calm and Blunted Affect Description: Constricted Patient Cognition Impaired: Yes Ability to Follow Directions: Good Speech Pattern: Spontaneous Speech and Soft-Spoken Memory Description: Remote Impaired Hallucinations: None Delusions: Not Present Thought Process: Distracted and Rumination Thought Content: positive for Perseveration Depressive Symptoms: Thoughts of /Suicide (denies) Judgement and Insight: Improving mood in judgment adams affect Diagnostics Vital Signs (24Hr): Vital Signs - 24 hr 09/10/23 18:00 09/11/23 08:00 Temperature 98.2 F 98.2 F Pulse Rate 72 56 Blood Pressure 124/72 101/58 L Pulse Oximetry 98 98 Oxygen Delivery Method Room Air Room Air BMI result Body Mass Index 25.0 Labs 08/24/23 14:53 08/26/23 08:13 Medications Medications Current Medications Acetaminophen (Acetaminophen 325 Mg Tablet) 650 mg PO Q6H PRN PRN Reason: Headache/Pain Mild Scale (1-3) Last Admin: 08/28/23 19:55 Dose: 650 mg Al Hydroxide/Mg Hydroxide (Magnesium Hydrox/Alum Hydrox 30 Ml Oral.Susp) 30 ml PO Q6H PRN PRN Reason: Heartburn/Nausea Apixaban (Apixaban 5 Mg Tablet) 5 mg PO BID [facility] Last Admin: 09/11/23 09:26 Dose: 5 mg Aripiprazole (Aripiprazole 10 Mg Tablet) 10 mg PO BEDTIME [facility] Last Admin: 09/10/23 22:05 Dose: 10 mg Atorvastatin Calcium (Atorvastatin Calcium 10 Mg Tablet) 10 mg PO BEDTIME [facility] Last Admin: 09/10/23 22:05 Dose: 10 mg Escitalopram Oxalate (Escitalopram Oxalate 10 Mg Tablet) 10 mg PO DAILY [facility] Last Admin: 09/11/23 09:26 Dose: 10 mg Folic Acid (Folic Acid 1 Mg Tablet) 1 mg PO DAILY [facility] Last Admin: 09/11/23 09:26 Dose: 1 mg Haloperidol (Haloperidol 5 Mg Tablet) 5 mg PO BID PRN PRN Reason: severe agitation Hydroxyzine HCl (Hydroxyzine Hcl 25 Mg Tablet) 25 mg PO Q6H PRN PRN Reason: Anxiety Lorazepam (Lorazepam 1 Mg Tablet) 1 mg PO BID PRN PRN Reason: anxiety/restlessness Magnesium Hydroxide (Milk Of Magnesia 30 Ml Oral.Susp) 30 ml PO DAILY PRN PRN Reason: Constipation Multivitamins/Vitamin C (Multivitamin Tablet) 1 tab PO DAILY [facility] Last Admin: 09/11/23 09:26 Dose: 1 tab Nicotine Polacrilex (Nicotine Polacrilex Lozenge 2 Mg Lozenge) 2 mg BUCCAL Q2H PRN PRN Reason: Nicotine Cravings Thiamine HCl (Thiamine Hcl 100 Mg Tablet) 100 mg PO BID [facility] Last Admin: 09/11/23 09:26 Dose: 100 mg Trazodone HCl (Trazodone Hcl 50 Mg Tablet) 50 mg PO BEDTIME PRN PRN Reason: Insomnia Trazodone HCl (Trazodone Hcl 100 Mg Tablet) 100 mg PO BEDTIME [facility] Last Admin: 09/10/23 22:05 Dose: 100 mg Vitamin D (Cholecalciferol (Vitamin D3) 10 Mcg Tablet) 10 mcg PO DAILY [facility] Last Admin: 09/11/23 09:26 Dose: 10 mcg Allergies Allergies Allergy/AdvReac Type Severity Reaction Status Date / Time No Known Allergies Allergy Verified 08/24/23 13:03 Assessment & Plan Assessment & Plan (1) Recurrent major depression-severe: Status: Acute Code(s): F33.2 - Major depressive disorder, recurrent severe without psychotic features (2) Mild cognitive impairment: Status: Acute Code(s): G31.84 - Mild cognitive impairment of uncertain or unknown etiology Plan 09/11/23- Increase Lexapro to 15 mg daily. Informed Consent: further education needed Reason for continued inpatient stay Substantial Risk for: rapid decompensation Time Spent With Patient Time: Total time managing care of this patient today ____ minutes.
[2023-09-11 21:48] VITALS: BP 105/57; PULSE 74; RESP 14; TEMP 36.4; O2SAT 94
[2023-09-11] MEDS: Atorvastatin Calcium 10 MG TABLET PO (21:51)
[2023-09-11] MEDS: ARIPiprazole 10 MG TABLET PO (21:52)
[2023-09-11] MEDS: traZODone HCL 100 MG TABLET PO (21:52)
[2023-09-12 08:25] VITALS: BP 117/62; PULSE 57; TEMP 36.4; O2SAT 96
[2023-09-12] MEDS: Cholecalciferol (Vitamin D3) 10 MCG TABLET PO (09:37)
[2023-09-12] MEDS: Folic Acid 1 MG TABLET PO (09:37)
[2023-09-12] MEDS: Apixaban 5 MG TABLET PO ×2 (09:37→20:26)
[2023-09-12] MEDS: Escitalopram Oxalate 5 MG TABLET 15 MG PO (09:37)
[2023-09-12] MEDS: Thiamine HCL 100 MG TABLET PO ×2 (09:37→20:26)
[2023-09-12] MEDS: Multivitamin TABLET 1 TAB PO (09:37)
[2023-09-12 18:00] VITALS: BP 112/63; PULSE 66; RESP 16; TEMP 36.5; O2SAT 97
[2023-09-12] MEDS: ARIPiprazole 10 MG TABLET PO (20:26)
[2023-09-12] MEDS: traZODone HCL 100 MG TABLET PO (20:26)
[2023-09-12] MEDS: Atorvastatin Calcium 10 MG TABLET PO (20:26)
--- NOTE | 2023-09-12 23:08 | HO.PSYCHPN ---
Subjective Subjective Date of Service: 09/12/23 Reason For Visit: SEC 12,RECENT SI ATTEMPT,CALM/COOP PER EMS Interim History: Patient seen in the evening, she was conversing with a small group of female peers in common room. Reports overall good day, uneventful. MOod is good, stable. Tolerating medications without issues. Sleep, appetite, energy good. Denies SI, HI, AH, VH. Doing pretty well, mood excellent . Spent day talking to select peers, spends most of time with another female she has befriended. They spent a good portion of the day walking the hallway. I'm in good company . Reports coming in for depression, confusion, but is now feeling optimistic, hopeful about the future things will be better . SHe was unable to recall the date today, did not even guess at year, was dismissive saying dates mean nothing in a jovial manner. She says the SI is gone since she arrived on the unit. She reports initial bouts of sleep disturbance when hse arrived on the unit, but that faded with time. However she did not sleep well last night, but is not concerned, is hopeful she will sleep well tonight. No acute issues or concerns. Remains bright, sociable, engaging. Mood is good, she feels the medicaitons have been helping her. Denies any adverse effects. She takes a nap during the day most days, but denies that this is interferring with sleep. She reports really enjoying [employer] last night, and expressed gratitude toward the unit staff. SHe denies any SI, no AVH. Mental Status Exam Mental Status Exam Narrative: Patient Appearance: Appropriate Patient Orientation: Person, Place, Time and Situation Level of Consciousness: Alert Patient Behavior: Appropriate, Talkative and Good Eye Contact Mood Description: Calm and Blunted Affect Description: Constricted Patient Cognition Impaired: Yes Ability to Follow Directions: Good Speech Pattern: Spontaneous Speech and Soft-Spoken Memory Description: Remote Impaired Hallucinations: None Delusions: Not Present Thought Process: Distracted and Rumination Thought Content: positive for Perseveration Depressive Symptoms: Thoughts of /Suicide (denies) Judgement and Insight: Improving mood in judgment adams affect Diagnostics Vital Signs (24Hr): Vital Signs - 24 hr 09/12/23 08:25 09/12/23 18:00 Temperature 97.6 F 97.7 F Pulse Rate 57 66 Respiratory Rate 16 Blood Pressure 117/62 112/63 Pulse Oximetry 96 97 Oxygen Delivery Method Room Air Room Air BMI result Body Mass Index 25.0 Labs 08/24/23 14:53 08/26/23 08:13 Medications Medications Current Medications Acetaminophen (Acetaminophen 325 Mg Tablet) 650 mg PO Q6H PRN PRN Reason: Headache/Pain Mild Scale (1-3) Last Admin: 08/28/23 19:55 Dose: 650 mg Al Hydroxide/Mg Hydroxide (Magnesium Hydrox/Alum Hydrox 30 Ml Oral.Susp) 30 ml PO Q6H PRN PRN Reason: Heartburn/Nausea Apixaban (Apixaban 5 Mg Tablet) 5 mg PO BID [facility] Last Admin: 09/12/23 20:26 Dose: 5 mg Aripiprazole (Aripiprazole 10 Mg Tablet) 10 mg PO BEDTIME [facility] Last Admin: 09/12/23 20:26 Dose: 10 mg Atorvastatin Calcium (Atorvastatin Calcium 10 Mg Tablet) 10 mg PO BEDTIME [facility] Last Admin: 09/12/23 20:26 Dose: 10 mg Escitalopram Oxalate (Escitalopram Oxalate 5 Mg Tablet) 15 mg PO DAILY [facility] Last Admin: 09/12/23 09:37 Dose: 15 mg Folic Acid (Folic Acid 1 Mg Tablet) 1 mg PO DAILY [facility] Last Admin: 09/12/23 09:37 Dose: 1 mg Haloperidol (Haloperidol 5 Mg Tablet) 5 mg PO BID PRN PRN Reason: severe agitation Hydroxyzine HCl (Hydroxyzine Hcl 25 Mg Tablet) 25 mg PO Q6H PRN PRN Reason: Anxiety Lorazepam (Lorazepam 1 Mg Tablet) 1 mg PO BID PRN PRN Reason: anxiety/restlessness Magnesium Hydroxide (Milk Of Magnesia 30 Ml Oral.Susp) 30 ml PO DAILY PRN PRN Reason: Constipation Multivitamins/Vitamin C (Multivitamin Tablet) 1 tab PO DAILY [facility] Last Admin: 09/12/23 09:37 Dose: 1 tab Nicotine Polacrilex (Nicotine Polacrilex Lozenge 2 Mg Lozenge) 2 mg BUCCAL Q2H PRN PRN Reason: Nicotine Cravings Thiamine HCl (Thiamine Hcl 100 Mg Tablet) 100 mg PO BID [facility] Last Admin: 09/12/23 20:26 Dose: 100 mg Trazodone HCl (Trazodone Hcl 50 Mg Tablet) 50 mg PO BEDTIME PRN PRN Reason: Insomnia Trazodone HCl (Trazodone Hcl 100 Mg Tablet) 100 mg PO BEDTIME [facility] Last Admin: 09/12/23 20:26 Dose: 100 mg Vitamin D (Cholecalciferol (Vitamin D3) 10 Mcg Tablet) 10 mcg PO DAILY [facility] Last Admin: 09/12/23 09:37 Dose: 10 mcg Allergies Allergies Allergy/AdvReac Type Severity Reaction Status Date / Time No Known Allergies Allergy Verified 08/24/23 13:03 Assessment & Plan Assessment & Plan (1) Recurrent major depression-severe: Status: Acute Code(s): F33.2 - Major depressive disorder, recurrent severe without psychotic features (2) Mild cognitive impairment: Status: Acute Code(s): G31.84 - Mild cognitive impairment of uncertain or unknown etiology Plan 09/11/23- Increase Lexapro to 15 mg daily. Reason for continued inpatient stay Substantial Risk for: med/psych decompensation Time Spent With Patient Time: Total time managing care of this patient today ____ minutes.
[2023-09-13 08:00] VITALS: BP 106/56; PULSE 52; TEMP 36.6; O2SAT 98
[2023-09-13] MEDS: Folic Acid 1 MG TABLET PO (09:09)
[2023-09-13] MEDS: Cholecalciferol (Vitamin D3) 10 MCG TABLET PO (09:09)
[2023-09-13] MEDS: Escitalopram Oxalate 5 MG TABLET 15 MG PO (09:09)
[2023-09-13] MEDS: Thiamine HCL 100 MG TABLET PO ×2 (09:09→21:21)
[2023-09-13] MEDS: Apixaban 5 MG TABLET PO ×2 (09:09→21:20)
[2023-09-13] MEDS: Multivitamin TABLET 1 TAB PO (09:09)
[2023-09-13 16:50] VITALS: BP 122/63; PULSE 71; RESP 16; TEMP 36.6; O2SAT 97
[2023-09-13] MEDS: ARIPiprazole 10 MG TABLET PO (21:20)
[2023-09-13] MEDS: Atorvastatin Calcium 10 MG TABLET PO (21:21)
[2023-09-13] MEDS: traZODone HCL 100 MG TABLET PO (21:21)
--- NOTE | 2023-09-13 22:50 | HO.PSYCHPN ---
Subjective Subjective Date of Service: 09/13/23 Reason For Visit: SEC 12,RECENT SI ATTEMPT,CALM/COOP PER EMS Interim History: Doing pretty well, mood excellent . Spent day talking to select peers, spends most of time with another female she has befriended. They spent a good portion of the day walking the hallway. I'm in good company . Reports coming in for depression, confusion, but is now feeling optimistic, hopeful about the future things will be better . SHe was unable to recall the date today, did not even guess at year, was dismissive saying dates mean nothing in a jovial manner. She says the SI is gone since she arrived on the unit. She reports initial bouts of sleep disturbance when hse arrived on the unit, but that faded with time. However she did not sleep well last night, but is not concerned, is hopeful she will sleep well tonight. Mental Status Exam Mental Status Exam Narrative: Patient Appearance: Appropriate Patient Orientation: Person, Place, Time and Situation Level of Consciousness: Alert Patient Behavior: Appropriate, Talkative and Good Eye Contact Mood Description: Calm and Blunted Affect Description: Constricted Patient Cognition Impaired: Yes Ability to Follow Directions: Good Speech Pattern: Spontaneous Speech and Soft-Spoken Memory Description: Remote Impaired Hallucinations: None Delusions: Not Present Thought Process: Distracted and Rumination Thought Content: positive for Perseveration Depressive Symptoms: Thoughts of /Suicide (denies) Judgement and Insight: Improving mood in judgment adams affect Diagnostics Vital Signs (24Hr): Vital Signs - 24 hr 09/13/23 08:00 09/13/23 16:50 Temperature 97.9 F 97.9 F Pulse Rate 52 71 Respiratory Rate 16 Blood Pressure 106/56 L 122/63 Pulse Oximetry 98 97 Oxygen Delivery Method Room Air Room Air BMI result Body Mass Index 25.0 Labs 08/24/23 14:53 08/26/23 08:13 Medications Medications Current Medications Acetaminophen (Acetaminophen 325 Mg Tablet) 650 mg PO Q6H PRN PRN Reason: Headache/Pain Mild Scale (1-3) Last Admin: 08/28/23 19:55 Dose: 650 mg Al Hydroxide/Mg Hydroxide (Magnesium Hydrox/Alum Hydrox 30 Ml Oral.Susp) 30 ml PO Q6H PRN PRN Reason: Heartburn/Nausea Apixaban (Apixaban 5 Mg Tablet) 5 mg PO BID [facility] Last Admin: 09/13/23 21:20 Dose: 5 mg Aripiprazole (Aripiprazole 10 Mg Tablet) 10 mg PO BEDTIME [facility] Last Admin: 09/13/23 21:20 Dose: 10 mg Atorvastatin Calcium (Atorvastatin Calcium 10 Mg Tablet) 10 mg PO BEDTIME [facility] Last Admin: 09/13/23 21:21 Dose: 10 mg Escitalopram Oxalate (Escitalopram Oxalate 5 Mg Tablet) 15 mg PO DAILY [facility] Last Admin: 09/13/23 09:09 Dose: 15 mg Folic Acid (Folic Acid 1 Mg Tablet) 1 mg PO DAILY [facility] Last Admin: 09/13/23 09:09 Dose: 1 mg Haloperidol (Haloperidol 5 Mg Tablet) 5 mg PO BID PRN PRN Reason: severe agitation Hydroxyzine HCl (Hydroxyzine Hcl 25 Mg Tablet) 25 mg PO Q6H PRN PRN Reason: Anxiety Lorazepam (Lorazepam 1 Mg Tablet) 1 mg PO BID PRN PRN Reason: anxiety/restlessness Magnesium Hydroxide (Milk Of Magnesia 30 Ml Oral.Susp) 30 ml PO DAILY PRN PRN Reason: Constipation Multivitamins/Vitamin C (Multivitamin Tablet) 1 tab PO DAILY [facility] Last Admin: 09/13/23 09:09 Dose: 1 tab Nicotine Polacrilex (Nicotine Polacrilex Lozenge 2 Mg Lozenge) 2 mg BUCCAL Q2H PRN PRN Reason: Nicotine Cravings Thiamine HCl (Thiamine Hcl 100 Mg Tablet) 100 mg PO BID [facility] Last Admin: 09/13/23 21:21 Dose: 100 mg Trazodone HCl (Trazodone Hcl 50 Mg Tablet) 50 mg PO BEDTIME PRN PRN Reason: Insomnia Trazodone HCl (Trazodone Hcl 100 Mg Tablet) 100 mg PO BEDTIME [facility] Last Admin: 09/13/23 21:21 Dose: 100 mg Vitamin D (Cholecalciferol (Vitamin D3) 10 Mcg Tablet) 10 mcg PO DAILY [facility] Last Admin: 09/13/23 09:09 Dose: 10 mcg Allergies Allergies Allergy/AdvReac Type Severity Reaction Status Date / Time No Known Allergies Allergy Verified 08/24/23 13:03 Assessment & Plan Assessment & Plan (1) Recurrent major depression-severe: Status: Acute Code(s): F33.2 - Major depressive disorder, recurrent severe without psychotic features (2) Mild cognitive impairment: Status: Acute Code(s): G31.84 - Mild cognitive impairment of uncertain or unknown etiology Plan 09/11/23- Increase Lexapro to 15 mg daily. Reason for continued inpatient stay Substantial Risk for: med/psych decompensation Time Spent With Patient Time: Total time managing care of this patient today ____ minutes.
[2023-09-14 08:00] VITALS: BP 116/62; PULSE 54; TEMP 36.7; O2SAT 97
[2023-09-14] MEDS: Folic Acid 1 MG TABLET PO (08:55)
[2023-09-14] MEDS: Thiamine HCL 100 MG TABLET PO ×2 (08:55→21:47)
[2023-09-14] MEDS: Multivitamin TABLET 1 TAB PO (08:55)
[2023-09-14] MEDS: Apixaban 5 MG TABLET PO ×2 (08:55→21:47)
[2023-09-14] MEDS: Escitalopram Oxalate 5 MG TABLET 15 MG PO (08:55)
[2023-09-14] MEDS: Cholecalciferol (Vitamin D3) 10 MCG TABLET PO (08:55)
[2023-09-14 20:20] VITALS: BP 111/60; PULSE 68; RESP 16; TEMP 36.8; O2SAT 100
--- NOTE | 2023-09-14 20:30 | PC.NURSE ---
Assumed care of pt @ 19:30. Participated in art group, interacting with staff and peers appropriately. Visible in milieu.
[2023-09-14] MEDS: Atorvastatin Calcium 10 MG TABLET PO (21:47)
[2023-09-14] MEDS: ARIPiprazole 10 MG TABLET PO (21:47)
[2023-09-14] MEDS: LORazepam 1 MG TABLET PO (21:47)
[2023-09-14] MEDS: traZODone HCL 100 MG TABLET PO (21:47)
--- NOTE | 2023-09-14 22:04 | HO.PSYCHPN ---
Subjective Subjective Date of Service: 09/14/23 Reason For Visit: SEC 12,RECENT SI ATTEMPT,CALM/COOP PER EMS Interim History: No acute issues or concerns. Remains bright, sociable, engaging. Mood is good, she feels the medicaitons have been helping her. Denies any adverse effects. She takes a nap during the day most days, but denies that this is interferring with sleep. She reports really enjoying [employer] last night, and expressed gratitude toward the unit staff. SHe denies any SI, no AVH. Mental Status Exam Mental Status Exam Narrative: Patient Appearance: Appropriate Patient Orientation: Person, Place, Time and Situation Level of Consciousness: Alert Patient Behavior: Appropriate, Talkative and Good Eye Contact Mood Description: good less depressed Affect Description: brighter, less constricted Patient Cognition Impaired: Yes Ability to Follow Directions: Good Speech Pattern: Spontaneous Speech and Soft-Spoken Memory Description: Remote Impaired Hallucinations: None Delusions: Not Present Thought Process: Distracted and Rumination Thought Content: positive for Perseveration Depressive Symptoms: Thoughts of /Suicide (denies) Judgement and Insight: Improving mood in judgment adams affect Diagnostics Vital Signs (24Hr): Vital Signs - 24 hr 09/14/23 08:00 09/14/23 20:20 Temperature 98.1 F 98.3 F Pulse Rate 54 68 Respiratory Rate 16 Blood Pressure 116/62 111/60 Pulse Oximetry 97 100 Oxygen Delivery Method Room Air BMI result Body Mass Index 25.0 Labs 08/24/23 14:53 08/26/23 08:13 Medications Medications Current Medications Acetaminophen (Acetaminophen 325 Mg Tablet) 650 mg PO Q6H PRN PRN Reason: Headache/Pain Mild Scale (1-3) Last Admin: 08/28/23 19:55 Dose: 650 mg Al Hydroxide/Mg Hydroxide (Magnesium Hydrox/Alum Hydrox 30 Ml Oral.Susp) 30 ml PO Q6H PRN PRN Reason: Heartburn/Nausea Apixaban (Apixaban 5 Mg Tablet) 5 mg PO BID [facility] Last Admin: 09/14/23 21:47 Dose: 5 mg Aripiprazole (Aripiprazole 10 Mg Tablet) 10 mg PO BEDTIME [facility] Last Admin: 09/14/23 21:47 Dose: 10 mg Atorvastatin Calcium (Atorvastatin Calcium 10 Mg Tablet) 10 mg PO BEDTIME [facility] Last Admin: 09/14/23 21:47 Dose: 10 mg Escitalopram Oxalate (Escitalopram Oxalate 5 Mg Tablet) 15 mg PO DAILY [facility] Last Admin: 09/14/23 08:55 Dose: 15 mg Folic Acid (Folic Acid 1 Mg Tablet) 1 mg PO DAILY [facility] Last Admin: 09/14/23 08:55 Dose: 1 mg Haloperidol (Haloperidol 5 Mg Tablet) 5 mg PO BID PRN PRN Reason: severe agitation Hydroxyzine HCl (Hydroxyzine Hcl 25 Mg Tablet) 25 mg PO Q6H PRN PRN Reason: Anxiety Lorazepam (Lorazepam 1 Mg Tablet) 1 mg PO BID PRN PRN Reason: anxiety/restlessness Last Admin: 09/14/23 21:47 Dose: 1 mg Magnesium Hydroxide (Milk Of Magnesia 30 Ml Oral.Susp) 30 ml PO DAILY PRN PRN Reason: Constipation Multivitamins/Vitamin C (Multivitamin Tablet) 1 tab PO DAILY [facility] Last Admin: 09/14/23 08:55 Dose: 1 tab Nicotine Polacrilex (Nicotine Polacrilex Lozenge 2 Mg Lozenge) 2 mg BUCCAL Q2H PRN PRN Reason: Nicotine Cravings Thiamine HCl (Thiamine Hcl 100 Mg Tablet) 100 mg PO BID [facility] Last Admin: 09/14/23 21:47 Dose: 100 mg Trazodone HCl (Trazodone Hcl 50 Mg Tablet) 50 mg PO BEDTIME PRN PRN Reason: Insomnia Trazodone HCl (Trazodone Hcl 100 Mg Tablet) 100 mg PO BEDTIME [facility] Last Admin: 09/14/23 21:47 Dose: 100 mg Vitamin D (Cholecalciferol (Vitamin D3) 10 Mcg Tablet) 10 mcg PO DAILY [facility] Last Admin: 09/14/23 08:55 Dose: 10 mcg Allergies Allergies Allergy/AdvReac Type Severity Reaction Status Date / Time No Known Allergies Allergy Verified 08/24/23 13:03 Assessment & Plan Assessment & Plan (1) Recurrent major depression-severe: Status: Acute Code(s): F33.2 - Major depressive disorder, recurrent severe without psychotic features (2) Mild cognitive impairment: Status: Acute Code(s): G31.84 - Mild cognitive impairment of uncertain or unknown etiology Plan 09/11/23- Increase Lexapro to 15 mg daily. Reason for continued inpatient stay Substantial Risk for: inability to function and med/psych decompensation Time Spent With Patient Time: Total time managing care of this patient today ____ minutes.
[2023-09-15 08:43] VITALS: BP 117/67; PULSE 64; RESP 16; TEMP 36.9; O2SAT 97
[2023-09-15] MEDS: Folic Acid 1 MG TABLET PO (09:06)
[2023-09-15] MEDS: Apixaban 5 MG TABLET PO ×2 (09:06→22:32)
[2023-09-15] MEDS: Escitalopram Oxalate 5 MG TABLET 15 MG PO (09:06)
[2023-09-15] MEDS: Cholecalciferol (Vitamin D3) 10 MCG TABLET PO (09:06)
[2023-09-15] MEDS: Thiamine HCL 100 MG TABLET PO ×2 (09:06→22:32)
[2023-09-15] MEDS: Multivitamin TABLET 1 TAB PO (09:06)
--- NOTE | 2023-09-15 17:19 | HO.PSYCHPN ---
Subjective Subjective Date of Service: 09/15/23 Reason For Visit: SEC 12,RECENT SI ATTEMPT,CALM/COOP PER EMS Subjective Notes: Conditional Voluntary Healthcare Proxy: No Guardianship: No Medical Problems Affecting Mental Status: No Interim History: Visable, engaged in milieu. Discussed her concerns about a move to a new place, fears,anxieties. Discussed what activities offer relief, grounding, and a feeling of comfort. Identifies reading-philosophy, Bk themed literature as a strong comfort. Medication Compliance: Yes Side effects from medications: No Attending Groups: Yes Review of Systems Acute medical concerns: No Medical Review of Systems: unchanged Review of Systems Review of Systems Yes all other systems are reviewed and are negative (denies) Mental Status Exam Mental Status Exam Patient Appearance: Appropriate Patient Orientation: Person, Place, Time and Situation Level of Consciousness: Alert Patient Behavior: Appropriate, Talkative and Good Eye Contact Mood Description: Calm and Blunted Affect Description: Constricted Patient Cognition Impaired: Yes Ability to Follow Directions: Good Speech Pattern: Spontaneous Speech and Soft-Spoken Memory Description: Remote Impaired Hallucinations: None Delusions: Not Present Thought Process: Distracted and Rumination Thought Content: positive for Perseveration Depressive Symptoms: Thoughts of /Suicide (denies) Judgement and Insight: Improving mood in judgment adams affect Diagnostics Vital Signs (24Hr): Vital Signs - 24 hr 09/14/23 20:20 09/15/23 08:43 Temperature 98.3 F 98.5 F Pulse Rate 68 64 Respiratory Rate 16 16 Blood Pressure 111/60 117/67 Pulse Oximetry 100 97 Oxygen Delivery Method Room Air Room Air BMI result Body Mass Index 25.0 Labs 08/24/23 14:53 08/26/23 08:13 Medications Medications Current Medications Acetaminophen (Acetaminophen 325 Mg Tablet) 650 mg PO Q6H PRN PRN Reason: Headache/Pain Mild Scale (1-3) Last Admin: 08/28/23 19:55 Dose: 650 mg Al Hydroxide/Mg Hydroxide (Magnesium Hydrox/Alum Hydrox 30 Ml Oral.Susp) 30 ml PO Q6H PRN PRN Reason: Heartburn/Nausea Apixaban (Apixaban 5 Mg Tablet) 5 mg PO BID [facility] Last Admin: 09/15/23 09:06 Dose: 5 mg Aripiprazole (Aripiprazole 10 Mg Tablet) 10 mg PO BEDTIME [facility] Last Admin: 09/14/23 21:47 Dose: 10 mg Atorvastatin Calcium (Atorvastatin Calcium 10 Mg Tablet) 10 mg PO BEDTIME [facility] Last Admin: 09/14/23 21:47 Dose: 10 mg Escitalopram Oxalate (Escitalopram Oxalate 5 Mg Tablet) 15 mg PO DAILY [facility] Last Admin: 09/15/23 09:06 Dose: 15 mg Folic Acid (Folic Acid 1 Mg Tablet) 1 mg PO DAILY [facility] Last Admin: 09/15/23 09:06 Dose: 1 mg Haloperidol (Haloperidol 5 Mg Tablet) 5 mg PO BID PRN PRN Reason: severe agitation Hydroxyzine HCl (Hydroxyzine Hcl 25 Mg Tablet) 25 mg PO Q6H PRN PRN Reason: Anxiety Lorazepam (Lorazepam 1 Mg Tablet) 1 mg PO BID PRN PRN Reason: anxiety/restlessness Last Admin: 09/14/23 21:47 Dose: 1 mg Magnesium Hydroxide (Milk Of Magnesia 30 Ml Oral.Susp) 30 ml PO DAILY PRN PRN Reason: Constipation Multivitamins/Vitamin C (Multivitamin Tablet) 1 tab PO DAILY [facility] Last Admin: 09/15/23 09:06 Dose: 1 tab Nicotine Polacrilex (Nicotine Polacrilex Lozenge 2 Mg Lozenge) 2 mg BUCCAL Q2H PRN PRN Reason: Nicotine Cravings Thiamine HCl (Thiamine Hcl 100 Mg Tablet) 100 mg PO BID [facility] Last Admin: 09/15/23 09:06 Dose: 100 mg Trazodone HCl (Trazodone Hcl 50 Mg Tablet) 50 mg PO BEDTIME PRN PRN Reason: Insomnia Trazodone HCl (Trazodone Hcl 100 Mg Tablet) 100 mg PO BEDTIME [facility] Last Admin: 09/14/23 21:47 Dose: 100 mg Vitamin D (Cholecalciferol (Vitamin D3) 10 Mcg Tablet) 10 mcg PO DAILY [facility] Last Admin: 09/15/23 09:06 Dose: 10 mcg Allergies Allergies Allergy/AdvReac Type Severity Reaction Status Date / Time No Known Allergies Allergy Verified 08/24/23 13:03 Assessment & Plan Assessment & Plan (1) Recurrent major depression-severe: Status: Acute Code(s): F33.2 - Major depressive disorder, recurrent severe without psychotic features (2) Mild cognitive impairment: Status: Acute Code(s): G31.84 - Mild cognitive impairment of uncertain or unknown etiology Plan 09/11/23- Increase Lexapro to 15 mg daily. 09/15/22- Continue current regime and plan. [facility] application sent by team for consideration for residential placement. Patient educated on: therapeutic strategies Informed Consent: understands and further education needed Reason for continued inpatient stay Substantial Risk for: rapid decompensation Time Spent With Patient Time: Total time managing care of this patient today ____ minutes.
[2023-09-15 18:00] VITALS: BP 117/62; PULSE 73; RESP 16; TEMP 36.4; O2SAT 98
[2023-09-15] MEDS: Atorvastatin Calcium 10 MG TABLET PO (22:32)
[2023-09-15] MEDS: ARIPiprazole 10 MG TABLET PO (22:32)
[2023-09-15] MEDS: traZODone HCL 100 MG TABLET PO (22:32)
[2023-09-16 09:02] VITALS: BP 102/62; PULSE 61; RESP 16; TEMP 36.4; O2SAT 97
[2023-09-16] MEDS: Escitalopram Oxalate 5 MG TABLET 15 MG PO (09:06)
[2023-09-16] MEDS: Folic Acid 1 MG TABLET PO (09:06)
[2023-09-16] MEDS: Multivitamin TABLET 1 TAB PO (09:07)
[2023-09-16] MEDS: Thiamine HCL 100 MG TABLET PO ×2 (09:07→20:10)
[2023-09-16 17:05] VITALS: BP 115/62; PULSE 70; RESP 16; TEMP 36.9; O2SAT 94
--- NOTE | 2023-09-16 17:20 | HO.PSYCHPN ---
Subjective Subjective Date of Service: 09/16/23 Reason For Visit: SEC 12,RECENT SI ATTEMPT,CALM/COOP PER EMS Subjective Notes: Conditional Voluntary Healthcare Proxy: No Guardianship: No Medical Problems Affecting Mental Status: No Interim History: Pt reports feeling well. She enjoyed meeting with [employer] Student today and talking about her life and interests. Given philosophy/Bk resources for reading which she states she is pleased with. Active with peers, visable in milieu. [facility] reviewing pt's application for residential services. Medication Compliance: Yes Side effects from medications: No Attending Groups: Yes Review of Systems Acute medical concerns: No Medical Review of Systems: unchanged Review of Systems Musculoskeletal: Reports other (chronic knee pain) Mental Status Exam Mental Status Exam Patient Appearance: Appropriate Patient Orientation: Person, Place, Time and Situation Level of Consciousness: Alert Patient Behavior: Appropriate, Talkative and Good Eye Contact Mood Description: Calm and Blunted Affect Description: Constricted Patient Cognition Impaired: Yes Ability to Follow Directions: Good Speech Pattern: Spontaneous Speech and Soft-Spoken Memory Description: Remote Impaired Hallucinations: None Delusions: Not Present Thought Process: Distracted and Rumination Thought Content: positive for Perseveration Depressive Symptoms: Thoughts of /Suicide (denies) Judgement and Insight: Improving mood in judgment adams affect Diagnostics Vital Signs (24Hr): Vital Signs - 24 hr 09/15/23 18:00 09/16/23 09:02 09/16/23 17:05 Temperature 97.6 F 97.5 F 98.4 F Pulse Rate 73 61 70 Respiratory Rate 16 16 16 Blood Pressure 117/62 102/62 115/62 Pulse Oximetry 98 97 94 Oxygen Delivery Method Room Air Room Air Room Air BMI result Body Mass Index 25.0 Labs 08/24/23 14:53 08/26/23 08:13 Medications Medications Current Medications Acetaminophen (Acetaminophen 325 Mg Tablet) 650 mg PO Q6H PRN PRN Reason: Headache/Pain Mild Scale (1-3) Last Admin: 08/28/23 19:55 Dose: 650 mg Al Hydroxide/Mg Hydroxide (Magnesium Hydrox/Alum Hydrox 30 Ml Oral.Susp) 30 ml PO Q6H PRN PRN Reason: Heartburn/Nausea Apixaban (Apixaban 5 Mg Tablet) 5 mg PO BID [facility] Last Admin: 09/16/23 09:07 Dose: 5 mg Aripiprazole (Aripiprazole 10 Mg Tablet) 10 mg PO BEDTIME [facility] Last Admin: 09/15/23 22:32 Dose: 10 mg Atorvastatin Calcium (Atorvastatin Calcium 10 Mg Tablet) 10 mg PO BEDTIME [facility] Last Admin: 09/15/23 22:32 Dose: 10 mg Escitalopram Oxalate (Escitalopram Oxalate 5 Mg Tablet) 15 mg PO DAILY [facility] Last Admin: 09/16/23 09:06 Dose: 15 mg Folic Acid (Folic Acid 1 Mg Tablet) 1 mg PO DAILY [facility] Last Admin: 09/16/23 09:06 Dose: 1 mg Haloperidol (Haloperidol 5 Mg Tablet) 5 mg PO BID PRN PRN Reason: severe agitation Hydroxyzine HCl (Hydroxyzine Hcl 25 Mg Tablet) 25 mg PO Q6H PRN PRN Reason: Anxiety Lorazepam (Lorazepam 1 Mg Tablet) 1 mg PO BID PRN PRN Reason: anxiety/restlessness Last Admin: 09/14/23 21:47 Dose: 1 mg Magnesium Hydroxide (Milk Of Magnesia 30 Ml Oral.Susp) 30 ml PO DAILY PRN PRN Reason: Constipation Multivitamins/Vitamin C (Multivitamin Tablet) 1 tab PO DAILY [facility] Last Admin: 09/16/23 09:07 Dose: 1 tab Nicotine Polacrilex (Nicotine Polacrilex Lozenge 2 Mg Lozenge) 2 mg BUCCAL Q2H PRN PRN Reason: Nicotine Cravings Thiamine HCl (Thiamine Hcl 100 Mg Tablet) 100 mg PO BID [facility] Last Admin: 09/16/23 09:07 Dose: 100 mg Trazodone HCl (Trazodone Hcl 50 Mg Tablet) 50 mg PO BEDTIME PRN PRN Reason: Insomnia Trazodone HCl (Trazodone Hcl 100 Mg Tablet) 100 mg PO BEDTIME [facility] Last Admin: 09/15/23 22:32 Dose: 100 mg Vitamin D (Cholecalciferol (Vitamin D3) 10 Mcg Tablet) 10 mcg PO DAILY [facility] Last Admin: 09/16/23 09:07 Dose: 10 mcg Allergies Allergies Allergy/AdvReac Type Severity Reaction Status Date / Time No Known Allergies Allergy Verified 08/24/23 13:03 Assessment & Plan Assessment & Plan (1) Recurrent major depression-severe: Status: Acute Code(s): F33.2 - Major depressive disorder, recurrent severe without psychotic features (2) Mild cognitive impairment: Status: Acute Code(s): G31.84 - Mild cognitive impairment of uncertain or unknown etiology Plan 09/11/23- Increase Lexapro to 15 mg daily. 09/15/23- Continue current regime and plan. [facility] application sent by team for consideration for residential placement. 09/16/23- [facility] has received pt's application and is reviewing this Patient educated on: therapeutic strategies Informed Consent: further education needed Reason for continued inpatient stay Substantial Risk for: rapid decompensation Time Spent With Patient Time: Total time managing care of this patient today ____ minutes.
[2023-09-16] MEDS: traZODone HCL 100 MG TABLET PO (20:09)
[2023-09-16] MEDS: Atorvastatin Calcium 10 MG TABLET PO (20:10)
[2023-09-17] MEDS: Escitalopram Oxalate 5 MG TABLET 15 MG PO (09:11)
[2023-09-17] MEDS: Folic Acid 1 MG TABLET PO (09:12)
[2023-09-17 09:22] VITALS: BP 120/68; PULSE 60; RESP 16; TEMP 36.8; O2SAT 96
--- NOTE | 2023-09-17 17:29 | HO.PSYCHPN ---
Subjective Subjective Date of Service: 09/17/23 Reason For Visit: SEC 12,RECENT SI ATTEMPT,CALM/COOP PER EMS Subjective Notes: Conditional Voluntary Healthcare Proxy: No Guardianship: No Medical Problems Affecting Mental Status: No Interim History: Lianet reports knee and ankle pain/edema. X Ray results are pending. She reports this occurs intermittently. [facility] is in process of pt's review of application for residential admission. Pt discussed being apprehensive and excited at the same time. Medication Compliance: Yes Side effects from medications: No Attending Groups: Yes Review of Systems Acute medical concerns: No Medical Review of Systems: unchanged Review of Systems Comments: knee/ankle pain, edema, Left Mental Status Exam Mental Status Exam Patient Appearance: Appropriate Patient Orientation: Person, Place, Time and Situation Level of Consciousness: Alert Patient Behavior: Appropriate, Talkative and Good Eye Contact Mood Description: Calm and Blunted Affect Description: Constricted Patient Cognition Impaired: Yes Ability to Follow Directions: Good Speech Pattern: Spontaneous Speech and Soft-Spoken Memory Description: Remote Impaired Hallucinations: None Delusions: Not Present Thought Process: Distracted and Rumination Thought Content: positive for Perseveration Depressive Symptoms: Thoughts of /Suicide (denies) Judgement and Insight: Improving mood in judgment adams affect Diagnostics Vital Signs (24Hr): Vital Signs - 24 hr 09/17/23 09:22 Temperature 98.2 F Pulse Rate 60 Respiratory Rate 16 Blood Pressure 120/68 Pulse Oximetry 96 Oxygen Delivery Method Room Air BMI result Body Mass Index 25.0 Labs 08/24/23 14:53 08/26/23 08:13 Medications Medications Current Medications Acetaminophen (Acetaminophen 325 Mg Tablet) 650 mg PO Q6H PRN PRN Reason: Headache/Pain Mild Scale (1-3) Last Admin: 08/28/23 19:55 Dose: 650 mg Al Hydroxide/Mg Hydroxide (Magnesium Hydrox/Alum Hydrox 30 Ml Oral.Susp) 30 ml PO Q6H PRN PRN Reason: Heartburn/Nausea Apixaban (Apixaban 5 Mg Tablet) 5 mg PO BID [facility] Last Admin: 09/17/23 09:12 Dose: 5 mg Aripiprazole (Aripiprazole 10 Mg Tablet) 10 mg PO BEDTIME [facility] Last Admin: 09/16/23 20:09 Dose: 10 mg Atorvastatin Calcium (Atorvastatin Calcium 10 Mg Tablet) 10 mg PO BEDTIME [facility] Last Admin: 09/16/23 20:10 Dose: 10 mg Escitalopram Oxalate (Escitalopram Oxalate 5 Mg Tablet) 15 mg PO DAILY [facility] Last Admin: 09/17/23 09:11 Dose: 15 mg Folic Acid (Folic Acid 1 Mg Tablet) 1 mg PO DAILY [facility] Last Admin: 09/17/23 09:12 Dose: 1 mg Haloperidol (Haloperidol 5 Mg Tablet) 5 mg PO BID PRN PRN Reason: severe agitation Hydroxyzine HCl (Hydroxyzine Hcl 25 Mg Tablet) 25 mg PO Q6H PRN PRN Reason: Anxiety Lorazepam (Lorazepam 1 Mg Tablet) 1 mg PO BID PRN PRN Reason: anxiety/restlessness Last Admin: 09/14/23 21:47 Dose: 1 mg Magnesium Hydroxide (Milk Of Magnesia 30 Ml Oral.Susp) 30 ml PO DAILY PRN PRN Reason: Constipation Multivitamins/Vitamin C (Multivitamin Tablet) 1 tab PO DAILY [facility] Last Admin: 09/17/23 09:12 Dose: 1 tab Nicotine Polacrilex (Nicotine Polacrilex Lozenge 2 Mg Lozenge) 2 mg BUCCAL Q2H PRN PRN Reason: Nicotine Cravings Thiamine HCl (Thiamine Hcl 100 Mg Tablet) 100 mg PO BID [facility] Last Admin: 09/17/23 09:12 Dose: 100 mg Trazodone HCl (Trazodone Hcl 50 Mg Tablet) 50 mg PO BEDTIME PRN PRN Reason: Insomnia Trazodone HCl (Trazodone Hcl 100 Mg Tablet) 100 mg PO BEDTIME [facility] Last Admin: 09/16/23 20:09 Dose: 100 mg Vitamin D (Cholecalciferol (Vitamin D3) 10 Mcg Tablet) 10 mcg PO DAILY [facility] Last Admin: 09/17/23 09:12 Dose: 10 mcg Allergies Allergies Allergy/AdvReac Type Severity Reaction Status Date / Time No Known Allergies Allergy Verified 08/24/23 13:03 Assessment & Plan Assessment & Plan (1) Recurrent major depression-severe: Status: Acute Code(s): F33.2 - Major depressive disorder, recurrent severe without psychotic features (2) Mild cognitive impairment: Status: Acute Code(s): G31.84 - Mild cognitive impairment of uncertain or unknown etiology Plan 09/11/23- Increase Lexapro to 15 mg daily. 09/15/23- Continue current regime and plan. [facility] application sent by team for consideration for residential placement. 09/16/23- [facility] has received pt's application and is reviewing this 09/17/23- Knee/Ankle xray results pending [facility] application pending Patient educated on: medical condition Informed Consent: further education needed Reason for continued inpatient stay Substantial Risk for: rapid decompensation and med/psych decompensation Time Spent With Patient Time: Total time managing care of this patient today ____ minutes.
[2023-09-17 18:00] VITALS: BP 116/68; PULSE 68; RESP 18; TEMP 36.6; O2SAT 97
[2023-09-17] MEDS: Atorvastatin Calcium 10 MG TABLET PO (20:09)
[2023-09-17] MEDS: traZODone HCL 50 MG TABLET PO (20:09)
[2023-09-18 08:53] VITALS: BP 134/62; PULSE 60; RESP 16; TEMP 36.9; O2SAT 94
[2023-09-18] MEDS: Escitalopram Oxalate 5 MG TABLET 15 MG PO (09:09)
[2023-09-18] MEDS: Folic Acid 1 MG TABLET PO (09:09)
--- NOTE | 2023-09-18 14:05 | HO.PSYCHPN ---
Subjective Subjective Date of Service: 09/18/23 Reason For Visit: SEC 12,RECENT SI ATTEMPT,CALM/COOP PER EMS Subjective Notes: Conditional Voluntary Healthcare Proxy: No Guardianship: No Medical Problems Affecting Mental Status: No Interim History: Lianet reports some apprehension as her application to [facility] remains pending. She discussed her anticipated anxiety. Reviewed knee xrays-showing OA L knee and L ankle joint effusion. Capsaicin trial ordered. Also reports facial dry skin-?eczema sx, hydrocorticone ordered. Will discuss a possible change to cymbalta for depression/improved OA pain mgt. Talks of interactions with peers in the milieu and her willingness to make beds if it will help others with their recovery. Medication Compliance: Yes Side effects from medications: No Attending Groups: No Review of Systems Acute medical concerns: No Medical Review of Systems: unchanged Review of Systems Review of Systems knee discomfort (L side) ankle discomfort (L side) Yes all other systems are reviewed and are negative (denies) Mental Status Exam Mental Status Exam Patient Appearance: Appropriate Patient Orientation: Person, Place, Time and Situation Level of Consciousness: Alert Patient Behavior: Appropriate, Talkative and Good Eye Contact Mood Description: Calm Affect Description: Calm Patient Cognition Impaired: Yes Ability to Follow Directions: Good Speech Pattern: Spontaneous Speech and Soft-Spoken Memory Description: Remote Impaired Hallucinations: None Delusions: Not Present Thought Process: Distracted and Rumination Thought Content: positive for Perseveration Depressive Symptoms: Thoughts of /Suicide (denies) Judgement: Fair Judgement and Insight: Improving mood in judgment adams affect Diagnostics Vital Signs (24Hr): Vital Signs - 24 hr 09/17/23 18:00 09/18/23 08:53 Temperature 97.8 F 98.4 F Pulse Rate 68 60 Respiratory Rate 18 16 Blood Pressure 116/68 134/62 Pulse Oximetry 97 94 Oxygen Delivery Method Room Air Room Air BMI result Body Mass Index 25.0 Labs 08/24/23 14:53 08/26/23 08:13 Imaging Radiology Impressions: ITS Impressions Ankle X-Ray 09/17/23 14:38 IMPRESSION: Global demineralization. Advanced osteoarthritis left knee. Left ankle soft tissue swelling, question joint effusion. No acute bony pathology. Calcaneal spurring. Knee X-Ray 09/17/23 14:38 IMPRESSION: Global demineralization. Advanced osteoarthritis left knee. Left ankle soft tissue swelling, question joint effusion. No acute bony pathology. Calcaneal spurring. Medications Medications Current Medications Acetaminophen (Acetaminophen 325 Mg Tablet) 650 mg PO Q6H PRN PRN Reason: Headache/Pain Mild Scale (1-3) Last Admin: 08/28/23 19:55 Dose: 650 mg Al Hydroxide/Mg Hydroxide (Magnesium Hydrox/Alum Hydrox 30 Ml Oral.Susp) 30 ml PO Q6H PRN PRN Reason: Heartburn/Nausea Apixaban (Apixaban 5 Mg Tablet) 5 mg PO BID [facility] Last Admin: 09/18/23 09:09 Dose: 5 mg Aripiprazole (Aripiprazole 10 Mg Tablet) 10 mg PO BEDTIME [facility] Last Admin: 09/17/23 20:09 Dose: 10 mg Atorvastatin Calcium (Atorvastatin Calcium 10 Mg Tablet) 10 mg PO BEDTIME [facility] Last Admin: 09/17/23 20:09 Dose: 10 mg Escitalopram Oxalate (Escitalopram Oxalate 5 Mg Tablet) 15 mg PO DAILY [facility] Last Admin: 09/18/23 09:09 Dose: 15 mg Folic Acid (Folic Acid 1 Mg Tablet) 1 mg PO DAILY [facility] Last Admin: 09/18/23 09:09 Dose: 1 mg Haloperidol (Haloperidol 5 Mg Tablet) 5 mg PO BID PRN PRN Reason: severe agitation Hydroxyzine HCl (Hydroxyzine Hcl 25 Mg Tablet) 25 mg PO Q6H PRN PRN Reason: Anxiety Lorazepam (Lorazepam 1 Mg Tablet) 1 mg PO BID PRN PRN Reason: anxiety/restlessness Last Admin: 09/14/23 21:47 Dose: 1 mg Magnesium Hydroxide (Milk Of Magnesia 30 Ml Oral.Susp) 30 ml PO DAILY PRN PRN Reason: Constipation Multivitamins/Vitamin C (Multivitamin Tablet) 1 tab PO DAILY [facility] Last Admin: 09/18/23 09:09 Dose: 1 tab Nicotine Polacrilex (Nicotine Polacrilex Lozenge 2 Mg Lozenge) 2 mg BUCCAL Q2H PRN PRN Reason: Nicotine Cravings Thiamine HCl (Thiamine Hcl 100 Mg Tablet) 100 mg PO BID [facility] Last Admin: 09/18/23 09:09 Dose: 100 mg Trazodone HCl (Trazodone Hcl 50 Mg Tablet) 50 mg PO BEDTIME PRN PRN Reason: Insomnia Last Admin: 09/17/23 20:09 Dose: 50 mg Trazodone HCl (Trazodone Hcl 100 Mg Tablet) 100 mg PO BEDTIME [facility] Last Admin: 09/17/23 20:09 Dose: 100 mg Vitamin D (Cholecalciferol (Vitamin D3) 10 Mcg Tablet) 10 mcg PO DAILY [facility] Last Admin: 09/18/23 09:09 Dose: 10 mcg Allergies Allergies Allergy/AdvReac Type Severity Reaction Status Date / Time No Known Allergies Allergy Verified 08/24/23 13:03 Assessment & Plan Assessment & Plan (1) Recurrent major depression-severe: Status: Acute Code(s): F33.2 - Major depressive disorder, recurrent severe without psychotic features (2) Mild cognitive impairment: Status: Acute Code(s): G31.84 - Mild cognitive impairment of uncertain or unknown etiology Plan 09/11/23- Increase Lexapro to 15 mg daily. 09/18/23 Capsaicin trial for knee pain Hydrocorticone cream for facial rash. Patient educated on: medication risk/benefits and therapeutic strategies Informed Consent: further education needed Reason for continued inpatient stay Substantial Risk for: rapid decompensation Time Spent With Patient Time: Total time managing care of this patient today ____ minutes.
[2023-09-18 16:37] VITALS: BP 110/62; PULSE 70; RESP 16; TEMP 36.6; O2SAT 96
[2023-09-18] MEDS: Atorvastatin Calcium 10 MG TABLET PO (21:10)
[2023-09-19 08:01] VITALS: BP 113/61; PULSE 64; RESP 16; TEMP 36.3; O2SAT 96
[2023-09-19] MEDS: Escitalopram Oxalate 5 MG TABLET 15 MG PO (10:17)
[2023-09-19] MEDS: Folic Acid 1 MG TABLET PO (10:17)
--- NOTE | 2023-09-19 15:45 | HO.PSYCHPN ---
Subjective Subjective Date of Service: 09/19/23 Reason For Visit: SEC 12,RECENT SI ATTEMPT,CALM/COOP PER EMS Medical Problems Affecting Mental Status: No Interim History: Pt seen and discussed with team. Active in the milieu and with peers. Denies sx of depression. Reports apprehension/anxiety about possibility for placement. Medication Compliance: Yes Side effects from medications: No Attending Groups: Yes Review of Systems Acute medical concerns: No Medical Review of Systems: unchanged Review of Systems Review of Systems Yes all other systems are reviewed and are negative Mental Status Exam Mental Status Exam Patient Appearance: Appropriate Patient Orientation: Person, Place, Time and Situation Level of Consciousness: Alert Patient Behavior: Appropriate, Talkative and Good Eye Contact Mood Description: Calm Affect Description: Calm Patient Cognition Impaired: Yes Ability to Follow Directions: Good Speech Pattern: Spontaneous Speech and Soft-Spoken Memory Description: Remote Impaired Hallucinations: None Delusions: Not Present Thought Process: Distracted and Rumination Thought Content: positive for Perseveration Depressive Symptoms: Thoughts of /Suicide (denies) Judgement: Fair Judgement and Insight: Improving mood in judgment adams affect Diagnostics Vital Signs (24Hr): Vital Signs - 24 hr 09/18/23 16:37 09/19/23 08:01 Temperature 97.8 F 97.4 F Pulse Rate 70 64 Respiratory Rate 16 16 Blood Pressure 110/62 113/61 Pulse Oximetry 96 96 Oxygen Delivery Method Room Air Room Air BMI result Body Mass Index 25.0 Labs 08/24/23 14:53 08/26/23 08:13 Imaging Radiology Impressions: ITS Impressions Ankle X-Ray 09/17/23 14:38 IMPRESSION: Global demineralization. Advanced osteoarthritis left knee. Left ankle soft tissue swelling, question joint effusion. No acute bony pathology. Calcaneal spurring. Knee X-Ray 09/17/23 14:38 IMPRESSION: Global demineralization. Advanced osteoarthritis left knee. Left ankle soft tissue swelling, question joint effusion. No acute bony pathology. Calcaneal spurring. Medications Medications Current Medications Acetaminophen (Acetaminophen 325 Mg Tablet) 650 mg PO Q6H PRN PRN Reason: Headache/Pain Mild Scale (1-3) Last Admin: 08/28/23 19:55 Dose: 650 mg Al Hydroxide/Mg Hydroxide (Magnesium Hydrox/Alum Hydrox 30 Ml Oral.Susp) 30 ml PO Q6H PRN PRN Reason: Heartburn/Nausea Apixaban (Apixaban 5 Mg Tablet) 5 mg PO BID [facility] Last Admin: 09/19/23 10:18 Dose: 5 mg Aripiprazole (Aripiprazole 10 Mg Tablet) 10 mg PO BEDTIME [facility] Last Admin: 09/18/23 21:10 Dose: 10 mg Atorvastatin Calcium (Atorvastatin Calcium 10 Mg Tablet) 10 mg PO BEDTIME [facility] Last Admin: 09/18/23 21:10 Dose: 10 mg Capsaicin (Capsaicin 0.025% Cream 60 Gm Tube) 1 appl TOPICAL QID PRN; Protocol PRN Reason: knee pain Escitalopram Oxalate (Escitalopram Oxalate 5 Mg Tablet) 15 mg PO DAILY [facility] Last Admin: 09/19/23 10:17 Dose: 15 mg Folic Acid (Folic Acid 1 Mg Tablet) 1 mg PO DAILY [facility] Last Admin: 09/19/23 10:17 Dose: 1 mg Haloperidol (Haloperidol 5 Mg Tablet) 5 mg PO BID PRN PRN Reason: severe agitation Hydrocortisone (Hydrocortisone 1 % Cream 28.35 Gm Tube) 1 appl TOPICAL BID PRN; Protocol PRN Reason: facial rash Hydroxyzine HCl (Hydroxyzine Hcl 25 Mg Tablet) 25 mg PO Q6H PRN PRN Reason: Anxiety Lorazepam (Lorazepam 1 Mg Tablet) 1 mg PO BID PRN PRN Reason: anxiety/restlessness Last Admin: 09/14/23 21:47 Dose: 1 mg Magnesium Hydroxide (Milk Of Magnesia 30 Ml Oral.Susp) 30 ml PO DAILY PRN PRN Reason: Constipation Multivitamins/Vitamin C (Multivitamin Tablet) 1 tab PO DAILY [facility] Last Admin: 09/19/23 10:18 Dose: 1 tab Nicotine Polacrilex (Nicotine Polacrilex Lozenge 2 Mg Lozenge) 2 mg BUCCAL Q2H PRN PRN Reason: Nicotine Cravings Thiamine HCl (Thiamine Hcl 100 Mg Tablet) 100 mg PO BID [facility] Last Admin: 09/19/23 10:17 Dose: 100 mg Trazodone HCl (Trazodone Hcl 50 Mg Tablet) 50 mg PO BEDTIME PRN PRN Reason: Insomnia Last Admin: 09/17/23 20:09 Dose: 50 mg Trazodone HCl (Trazodone Hcl 100 Mg Tablet) 100 mg PO BEDTIME [facility] Last Admin: 09/18/23 21:10 Dose: 100 mg Vitamin D (Cholecalciferol (Vitamin D3) 10 Mcg Tablet) 10 mcg PO DAILY [facility] Last Admin: 09/19/23 10:17 Dose: 10 mcg Allergies Allergies Allergy/AdvReac Type Severity Reaction Status Date / Time No Known Allergies Allergy Verified 08/24/23 13:03 Assessment & Plan Assessment & Plan (1) Recurrent major depression-severe: Status: Acute Code(s): F33.2 - Major depressive disorder, recurrent severe without psychotic features (2) Mild cognitive impairment: Status: Acute Code(s): G31.84 - Mild cognitive impairment of uncertain or unknown etiology Plan 09/11/23- Increase Lexapro to 15 mg daily. 09/18/23 Capsaicin trial for knee pain Hydrocorticone cream for facial rash. 09/19/23 Continue tx. Informed Consent: understands and further education needed Reason for continued inpatient stay Substantial Risk for: rapid decompensation Time Spent With Patient Time: Total time managing care of this patient today ____ minutes.
[2023-09-19 18:00] VITALS: BP 131/64; PULSE 76; RESP 18; TEMP 36.6; O2SAT 96
[2023-09-19] MEDS: Atorvastatin Calcium 10 MG TABLET PO (22:10)
[2023-09-20 08:25] VITALS: BP 133/66; PULSE 62; RESP 18; TEMP 36.3; O2SAT 94
[2023-09-20] MEDS: Escitalopram Oxalate 5 MG TABLET 15 MG PO (08:56)
[2023-09-20] MEDS: Folic Acid 1 MG TABLET PO (08:57)
[2023-09-20 18:00] VITALS: BP 122/62; PULSE 70; RESP 17; TEMP 36.4; O2SAT 94
[2023-09-20] MEDS: Atorvastatin Calcium 10 MG TABLET PO (21:33)
[2023-09-20] MEDS: traZODone HCL 50 MG TABLET PO (21:33)
[2023-09-21 09:25] VITALS: BP 110/62; PULSE 88; RESP 18; TEMP 36.7; O2SAT 97
[2023-09-21] MEDS: Escitalopram Oxalate 5 MG TABLET 15 MG PO (09:27)
--- NOTE | 2023-09-21 10:09 | HO.PSYCHPN ---
Subjective Subjective Date of Service: 09/20/23 Reason For Visit: SEC 12,RECENT SI ATTEMPT,CALM/COOP PER EMS Subjective Notes: Conditional Voluntary Interim History: Pt seen, reviewed with team Several questions today about milieu, peers, peers symptoms and do you think I should be doing anything to help, I am worried and concerned, but I don't know what is the right thing to do . Discussed with pt, education provided, support offered for some of her fearful issues with pt's sx. Medication Compliance: Yes Side effects from medications: No Attending Groups: Yes Review of Systems Acute medical concerns: No Medical Review of Systems: unchanged Review of Systems Review of Systems Yes all other systems are reviewed and are negative Mental Status Exam Mental Status Exam Patient Appearance: Appropriate Patient Orientation: Person, Place, Time and Situation Level of Consciousness: Alert Patient Behavior: Appropriate, Talkative and Good Eye Contact Mood Description: Calm Affect Description: Calm Patient Cognition Impaired: Yes Ability to Follow Directions: Good Speech Pattern: Spontaneous Speech and Soft-Spoken Memory Description: Remote Impaired Hallucinations: None Delusions: Not Present Thought Process: Distracted and Rumination Thought Content: positive for Perseveration Depressive Symptoms: Thoughts of /Suicide (denies) Judgement: Fair Judgement and Insight: Improving mood in judgment adams affect Diagnostics Vital Signs (24Hr): Vital Signs - 24 hr 09/20/23 18:00 09/21/23 09:25 Temperature 97.5 F 98.1 F Pulse Rate 70 88 Respiratory Rate 17 18 Blood Pressure 122/62 110/62 Pulse Oximetry 94 97 Oxygen Delivery Method Room Air BMI result Body Mass Index 25.0 Labs 08/24/23 14:53 08/26/23 08:13 Imaging Radiology Impressions: ITS Impressions Ankle X-Ray 09/17/23 14:38 IMPRESSION: Global demineralization. Advanced osteoarthritis left knee. Left ankle soft tissue swelling, question joint effusion. No acute bony pathology. Calcaneal spurring. Knee X-Ray 09/17/23 14:38 IMPRESSION: Global demineralization. Advanced osteoarthritis left knee. Left ankle soft tissue swelling, question joint effusion. No acute bony pathology. Calcaneal spurring. Medications Medications Current Medications Acetaminophen (Acetaminophen 325 Mg Tablet) 650 mg PO Q6H PRN PRN Reason: Headache/Pain Mild Scale (1-3) Last Admin: 08/28/23 19:55 Dose: 650 mg Al Hydroxide/Mg Hydroxide (Magnesium Hydrox/Alum Hydrox 30 Ml Oral.Susp) 30 ml PO Q6H PRN PRN Reason: Heartburn/Nausea Apixaban (Apixaban 5 Mg Tablet) 5 mg PO BID [facility] Last Admin: 09/21/23 09:27 Dose: 5 mg Aripiprazole (Aripiprazole 10 Mg Tablet) 10 mg PO BEDTIME [facility] Last Admin: 09/20/23 21:33 Dose: 10 mg Atorvastatin Calcium (Atorvastatin Calcium 10 Mg Tablet) 10 mg PO BEDTIME [facility] Last Admin: 09/20/23 21:33 Dose: 10 mg Capsaicin (Capsaicin 0.025% Cream 60 Gm Tube) 1 appl TOPICAL QID PRN; Protocol PRN Reason: knee pain Escitalopram Oxalate (Escitalopram Oxalate 5 Mg Tablet) 15 mg PO DAILY [facility] Last Admin: 09/21/23 09:27 Dose: 15 mg Folic Acid (Folic Acid 1 Mg Tablet) 1 mg PO DAILY [facility] Last Admin: 09/21/23 09:26 Dose: 1 mg Haloperidol (Haloperidol 5 Mg Tablet) 5 mg PO BID PRN PRN Reason: severe agitation Hydrocortisone (Hydrocortisone 1 % Cream 28.35 Gm Tube) 1 appl TOPICAL BID PRN; Protocol PRN Reason: facial rash Hydroxyzine HCl (Hydroxyzine Hcl 25 Mg Tablet) 25 mg PO Q6H PRN PRN Reason: Anxiety Lorazepam (Lorazepam 1 Mg Tablet) 1 mg PO BID PRN PRN Reason: anxiety/restlessness Last Admin: 09/14/23 21:47 Dose: 1 mg Magnesium Hydroxide (Milk Of Magnesia 30 Ml Oral.Susp) 30 ml PO DAILY PRN PRN Reason: Constipation Multivitamins/Vitamin C (Multivitamin Tablet) 1 tab PO DAILY [facility] Last Admin: 09/21/23 09:26 Dose: 1 tab Nicotine Polacrilex (Nicotine Polacrilex Lozenge 2 Mg Lozenge) 2 mg BUCCAL Q2H PRN PRN Reason: Nicotine Cravings Thiamine HCl (Thiamine Hcl 100 Mg Tablet) 100 mg PO BID [facility] Last Admin: 09/21/23 09:27 Dose: 100 mg Trazodone HCl (Trazodone Hcl 50 Mg Tablet) 50 mg PO BEDTIME PRN PRN Reason: Insomnia Last Admin: 09/20/23 21:33 Dose: 50 mg Trazodone HCl (Trazodone Hcl 100 Mg Tablet) 100 mg PO BEDTIME [facility] Last Admin: 09/20/23 21:33 Dose: 100 mg Vitamin D (Cholecalciferol (Vitamin D3) 10 Mcg Tablet) 10 mcg PO DAILY [facility] Last Admin: 09/21/23 09:26 Dose: 10 mcg Allergies Allergies Allergy/AdvReac Type Severity Reaction Status Date / Time No Known Allergies Allergy Verified 08/24/23 13:03 Assessment & Plan Assessment & Plan (1) Recurrent major depression-severe: Status: Acute Code(s): F33.2 - Major depressive disorder, recurrent severe without psychotic features (2) Mild cognitive impairment: Status: Acute Code(s): G31.84 - Mild cognitive impairment of uncertain or unknown etiology Plan 09/11/23- Increase Lexapro to 15 mg daily. 09/20/23- Continue tx. Patient educated on: therapeutic strategies and other Informed Consent: further education needed Reason for continued inpatient stay Substantial Risk for: rapid decompensation Time Spent With Patient Time: Total time managing care of this patient today ____ minutes.
--- NOTE | 2023-09-21 10:10 | HO.PSYCHPN ---
Subjective Subjective Date of Service: 09/21/23 Reason For Visit: SEC 12,RECENT SI ATTEMPT,CALM/COOP PER EMS Diagnostics Vital Signs (24Hr): Vital Signs - 24 hr 09/20/23 18:00 09/21/23 09:25 Temperature 97.5 F 98.1 F Pulse Rate 70 88 Respiratory Rate 17 18 Blood Pressure 122/62 110/62 Pulse Oximetry 94 97 Oxygen Delivery Method Room Air BMI result Body Mass Index 25.0 Labs 08/24/23 14:53 08/26/23 08:13 Imaging Radiology Impressions: ITS Impressions Ankle X-Ray 09/17/23 14:38 IMPRESSION: Global demineralization. Advanced osteoarthritis left knee. Left ankle soft tissue swelling, question joint effusion. No acute bony pathology. Calcaneal spurring. Knee X-Ray 09/17/23 14:38 IMPRESSION: Global demineralization. Advanced osteoarthritis left knee. Left ankle soft tissue swelling, question joint effusion. No acute bony pathology. Calcaneal spurring. Medications Medications Current Medications Acetaminophen (Acetaminophen 325 Mg Tablet) 650 mg PO Q6H PRN PRN Reason: Headache/Pain Mild Scale (1-3) Last Admin: 08/28/23 19:55 Dose: 650 mg Al Hydroxide/Mg Hydroxide (Magnesium Hydrox/Alum Hydrox 30 Ml Oral.Susp) 30 ml PO Q6H PRN PRN Reason: Heartburn/Nausea Apixaban (Apixaban 5 Mg Tablet) 5 mg PO BID [facility] Last Admin: 09/21/23 09:27 Dose: 5 mg Aripiprazole (Aripiprazole 10 Mg Tablet) 10 mg PO BEDTIME [facility] Last Admin: 09/20/23 21:33 Dose: 10 mg Atorvastatin Calcium (Atorvastatin Calcium 10 Mg Tablet) 10 mg PO BEDTIME [facility] Last Admin: 09/20/23 21:33 Dose: 10 mg Capsaicin (Capsaicin 0.025% Cream 60 Gm Tube) 1 appl TOPICAL QID PRN; Protocol PRN Reason: knee pain Escitalopram Oxalate (Escitalopram Oxalate 5 Mg Tablet) 15 mg PO DAILY [facility] Last Admin: 09/21/23 09:27 Dose: 15 mg Folic Acid (Folic Acid 1 Mg Tablet) 1 mg PO DAILY [facility] Last Admin: 09/21/23 09:26 Dose: 1 mg Haloperidol (Haloperidol 5 Mg Tablet) 5 mg PO BID PRN PRN Reason: severe agitation Hydrocortisone (Hydrocortisone 1 % Cream 28.35 Gm Tube) 1 appl TOPICAL BID PRN; Protocol PRN Reason: facial rash Hydroxyzine HCl (Hydroxyzine Hcl 25 Mg Tablet) 25 mg PO Q6H PRN PRN Reason: Anxiety Lorazepam (Lorazepam 1 Mg Tablet) 1 mg PO BID PRN PRN Reason: anxiety/restlessness Last Admin: 09/14/23 21:47 Dose: 1 mg Magnesium Hydroxide (Milk Of Magnesia 30 Ml Oral.Susp) 30 ml PO DAILY PRN PRN Reason: Constipation Multivitamins/Vitamin C (Multivitamin Tablet) 1 tab PO DAILY [facility] Last Admin: 09/21/23 09:26 Dose: 1 tab Nicotine Polacrilex (Nicotine Polacrilex Lozenge 2 Mg Lozenge) 2 mg BUCCAL Q2H PRN PRN Reason: Nicotine Cravings Thiamine HCl (Thiamine Hcl 100 Mg Tablet) 100 mg PO BID [facility] Last Admin: 09/21/23 09:27 Dose: 100 mg Trazodone HCl (Trazodone Hcl 50 Mg Tablet) 50 mg PO BEDTIME PRN PRN Reason: Insomnia Last Admin: 09/20/23 21:33 Dose: 50 mg Trazodone HCl (Trazodone Hcl 100 Mg Tablet) 100 mg PO BEDTIME [facility] Last Admin: 09/20/23 21:33 Dose: 100 mg Vitamin D (Cholecalciferol (Vitamin D3) 10 Mcg Tablet) 10 mcg PO DAILY [facility] Last Admin: 09/21/23 09:26 Dose: 10 mcg Allergies Allergies Allergy/AdvReac Type Severity Reaction Status Date / Time No Known Allergies Allergy Verified 08/24/23 13:03 Assessment & Plan Assessment & Plan (1) Recurrent major depression-severe: Status: Acute Code(s): F33.2 - Major depressive disorder, recurrent severe without psychotic features (2) Mild cognitive impairment: Status: Acute Code(s): G31.84 - Mild cognitive impairment of uncertain or unknown etiology Plan 09/11/23- Increase Lexapro to 15 mg daily. 09/21/22- Team reports Larry has declined pt-continue applications Pt has facial rash-? from Eucerin, hydrocortisone, both or environmental reaction-monitor Pt's HCP will tell her that her dogs will need adoption as she cannot take them to a placement Pt engaged in milieu Continue to support, assist in grieving of losses. Informed Consent: does not understand and further education needed Reason for continued inpatient stay Substantial Risk for: rapid decompensation Time Spent With Patient Time: Total time managing care of this patient today ____ minutes.
[2023-09-21 20:24] VITALS: BP 116/68; PULSE 74; RESP 18; TEMP 37.2; O2SAT 94
[2023-09-21] MEDS: Atorvastatin Calcium 10 MG TABLET PO (20:26)
[2023-09-21] MEDS: ARIPiprazole 10 MG TABLET PO (20:26)
[2023-09-21] MEDS: Thiamine HCL 100 MG TABLET PO (20:26)
[2023-09-21] MEDS: traZODone HCL 100 MG TABLET PO (20:26)
[2023-09-21] MEDS: Apixaban 5 MG TABLET PO (20:26)
[2023-09-22 08:42] VITALS: BP 119/82; PULSE 67; RESP 16; TEMP 36.3; O2SAT 97
[2023-09-22] MEDS: Thiamine HCL 100 MG TABLET PO ×2 (08:51→21:58)
[2023-09-22] MEDS: Folic Acid 1 MG TABLET PO (08:51)
[2023-09-22] MEDS: Multivitamin TABLET 1 TAB PO (08:51)
[2023-09-22] MEDS: Apixaban 5 MG TABLET PO ×2 (08:51→21:58)
[2023-09-22] MEDS: Cholecalciferol (Vitamin D3) 10 MCG TABLET PO (08:51)
[2023-09-22] MEDS: Escitalopram Oxalate 5 MG TABLET 15 MG PO (08:51)
--- NOTE | 2023-09-22 16:37 | P.PNPSI_ITS ---
Subjective Subjective Date of Service: 09/22/23 Reason For Visit: SEC 12,RECENT SI ATTEMPT,CALM/COOP PER EMS Subjective Notes: Conditional Voluntary Healthcare Proxy: No Guardianship: No Medical Problems Affecting Mental Status: No Interim History: Pt having difficulty seeing her friends discharge. I am sad, yet happy for them I wish it were me. Applications continue for rest homes for pt. Pt has exacerbation of facial rash with increase in redness, heat, surface area. Will ask hospitalist to consult Medication Compliance: Yes Side effects from medications: No Attending Groups: Yes Review of Systems Acute medical concerns: No Facial rash Medical Review of Systems: unchanged Review of Systems Skin/Breast: Reports rash (facial) Mental Status Exam Mental Status Exam Patient Appearance: Appropriate Patient Orientation: Person, Place, Time and Situation Level of Consciousness: Alert Patient Behavior: Appropriate, Talkative and Good Eye Contact Mood Description: Calm Affect Description: Calm Patient Cognition Impaired: Yes Ability to Follow Directions: Good Speech Pattern: Spontaneous Speech and Soft-Spoken Memory Description: Remote Impaired Hallucinations: None Delusions: Not Present Thought Process: Distracted and Rumination Thought Content: positive for Perseveration Depressive Symptoms: Thoughts of /Suicide (denies) Judgement: Fair Judgement and Insight: Improving mood in judgment adams affect Diagnostics Vital Signs (24Hr): Vital Signs - 24 hr 09/21/23 20:24 09/22/23 08:42 Temperature 98.9 F 97.4 F Pulse Rate 74 67 Respiratory Rate 18 16 Blood Pressure 116/68 119/82 Pulse Oximetry 94 97 Oxygen Delivery Method Room Air Room Air BMI result Body Mass Index 25.0 Labs 08/24/23 14:53 08/26/23 08:13 Imaging Radiology Impressions: ITS Impressions Ankle X-Ray 09/17/23 14:38 IMPRESSION: Global demineralization. Advanced osteoarthritis left knee. Left ankle soft tissue swelling, question joint effusion. No acute bony pathology. Calcaneal spurring. Knee X-Ray 09/17/23 14:38 IMPRESSION: Global demineralization. Advanced osteoarthritis left knee. Left ankle soft tissue swelling, question joint effusion. No acute bony pathology. Calcaneal spurring. Medications Medications Current Medications Acetaminophen (Acetaminophen 325 Mg Tablet) 650 mg PO Q6H PRN PRN Reason: Headache/Pain Mild Scale (1-3) Last Admin: 08/28/23 19:55 Dose: 650 mg Al Hydroxide/Mg Hydroxide (Magnesium Hydrox/Alum Hydrox 30 Ml Oral.Susp) 30 ml PO Q6H PRN PRN Reason: Heartburn/Nausea Apixaban (Apixaban 5 Mg Tablet) 5 mg PO BID [facility] Last Admin: 09/22/23 08:51 Dose: 5 mg Aripiprazole (Aripiprazole 10 Mg Tablet) 10 mg PO BEDTIME [facility] Last Admin: 09/21/23 20:26 Dose: 10 mg Atorvastatin Calcium (Atorvastatin Calcium 10 Mg Tablet) 10 mg PO BEDTIME [facility] Last Admin: 09/21/23 20:26 Dose: 10 mg Capsaicin (Capsaicin 0.025% Cream 60 Gm Tube) 1 appl TOPICAL QID PRN; Protocol PRN Reason: knee pain Escitalopram Oxalate (Escitalopram Oxalate 5 Mg Tablet) 15 mg PO DAILY [facility] Last Admin: 09/22/23 08:51 Dose: 15 mg Folic Acid (Folic Acid 1 Mg Tablet) 1 mg PO DAILY [facility] Last Admin: 09/22/23 08:51 Dose: 1 mg Haloperidol (Haloperidol 5 Mg Tablet) 5 mg PO BID PRN PRN Reason: severe agitation Hydroxyzine HCl (Hydroxyzine Hcl 25 Mg Tablet) 25 mg PO Q6H PRN PRN Reason: Anxiety Lorazepam (Lorazepam 1 Mg Tablet) 1 mg PO BID PRN PRN Reason: anxiety/restlessness Last Admin: 09/14/23 21:47 Dose: 1 mg Magnesium Hydroxide (Milk Of Magnesia 30 Ml Oral.Susp) 30 ml PO DAILY PRN PRN Reason: Constipation Multivitamins/Vitamin C (Multivitamin Tablet) 1 tab PO DAILY [facility] Last Admin: 09/22/23 08:51 Dose: 1 tab Nicotine Polacrilex (Nicotine Polacrilex Lozenge 2 Mg Lozenge) 2 mg BUCCAL Q2H PRN PRN Reason: Nicotine Cravings Thiamine HCl (Thiamine Hcl 100 Mg Tablet) 100 mg PO BID [facility] Last Admin: 09/22/23 08:51 Dose: 100 mg Trazodone HCl (Trazodone Hcl 50 Mg Tablet) 50 mg PO BEDTIME PRN PRN Reason: Insomnia Last Admin: 09/20/23 21:33 Dose: 50 mg Trazodone HCl (Trazodone Hcl 100 Mg Tablet) 100 mg PO BEDTIME [facility] Last Admin: 09/21/23 20:26 Dose: 100 mg Vitamin D (Cholecalciferol (Vitamin D3) 10 Mcg Tablet) 10 mcg PO DAILY [facility] Last Admin: 09/22/23 08:51 Dose: 10 mcg Allergies Allergies Allergy/AdvReac Type Severity Reaction Status Date / Time No Known Allergies Allergy Verified 08/24/23 13:03 Assessment & Plan Assessment & Plan (1) Recurrent major depression-severe: Status: Acute Code(s): F33.2 - Major depressive disorder, recurrent severe without psychotic features (2) Mild cognitive impairment: Status: Acute Code(s): G31.84 - Mild cognitive impairment of uncertain or unknown etiology Plan 09/11/23- Increase Lexapro to 15 mg daily. 09/20/23- Continue tx. 09/22/23- Hospitalist consult-facial rash Continue application process for rest homes. Patient educated on: therapeutic strategies Informed Consent: further education needed Reason for continued inpatient stay Substantial Risk for: rapid decompensation Time Spent With Patient Time: Total time managing care of this patient today ____ minutes.
[2023-09-22 18:00] VITALS: BP 129/78; PULSE 68; RESP 16; TEMP 36.5; O2SAT 96
[2023-09-22] MEDS: hydrOXYzine HCL 25 MG TABLET PO (20:38)
[2023-09-22] MEDS: Atorvastatin Calcium 10 MG TABLET PO (21:58)
[2023-09-22] MEDS: ARIPiprazole 10 MG TABLET PO (21:58)
[2023-09-22] MEDS: traZODone HCL 100 MG TABLET PO (21:58)
[2023-09-22] MEDS: Acetaminophen 325 MG TABLET 650 MG PO (23:16)
[2023-09-23 08:00] VITALS: BP 133/68; PULSE 60; RESP 16; TEMP 36.9; O2SAT 97
[2023-09-23] MEDS: Folic Acid 1 MG TABLET PO (08:28)
[2023-09-23] MEDS: Apixaban 5 MG TABLET PO ×2 (08:28→20:38)
[2023-09-23] MEDS: Escitalopram Oxalate 5 MG TABLET 15 MG PO (08:28)
[2023-09-23] MEDS: Multivitamin TABLET 1 TAB PO (08:28)
[2023-09-23] MEDS: Cholecalciferol (Vitamin D3) 10 MCG TABLET PO (08:28)
[2023-09-23] MEDS: Thiamine HCL 100 MG TABLET PO ×2 (08:28→20:39)
--- NOTE | 2023-09-23 12:53 | PM.EVENT ---
Event Note Date of Service: 09/23/23 Event Note: Patient is a 67-year-old female seen for evaluation of facial rash. Patient states rash began 1-2 months prior. Patient denies any known precipitating factors: Denies starting new medications, stopping old medications, use of new detergents/lotions. Denies rash anywhere else on her body. Rash has not spread or become more erythematous, but patient does note an increase in irritability that is now constant rather than intermittent. Describes sensation as more of a ?prickly heat? and ?irritation? rather than any kind of pain. Patient has never experienced anything like this before, and denies any PMH of dermatologic or rheumatologic conditions. Also denies any other symptoms other than facial erythema, prickling, and pruritus. No muscle weakness or joint pain. Denies photophobia. She has been using warm compresses with some positive effect. Upon physical examination rashes noted to be flat, with slightly dry skin. Not in a malar distribution: Includes nasal labial folds and extends to chin. See picture below. Unclear etiology. Will treat with low-dose topical hydrocortisone 1% cream bid x5 days and Eucerin bid prn for dry skin. Pt should be careful to avoid getting hydrocortisone in eyes and wash hands thoroughly after application. She should also follow up with PCP outpatient to ensure resolution. Time Spent With Patient Time: Total time managing care of this patient today ____ minutes.
[2023-09-23] MEDS: Hydrocortisone 1 % Cream 28.35 GM TUBE 1 APPL TOPICAL ×2 (15:19→20:39)
[2023-09-23] MEDS: hydrOXYzine HCL 25 MG TABLET PO (16:40)
--- NOTE | 2023-09-23 17:14 | HO.PSYCHPN ---
Subjective Subjective Date of Service: 09/23/23 Reason For Visit: SEC 12,RECENT SI ATTEMPT,CALM/COOP PER EMS Subjective Notes: Conditional Voluntary Healthcare Proxy: No Guardianship: No Medical Problems Affecting Mental Status: No Interim History: Pt seen by hospitalist for facial rash. Today, discussed moving to a rest home. It appears she may be accepted. Discussed how her life has changed in the past year and setting new goals for herself in the future. Discussed interests she wants to explore and I just hope I can still be connected to really good people and friends . Medication Compliance: Yes Side effects from medications: No Attending Groups: Yes Review of Systems Acute medical concerns: No Medical Review of Systems: unchanged Review of Systems Skin/Breast: Reports rash (facial) Mental Status Exam Mental Status Exam Patient Appearance: Appropriate Patient Orientation: Person, Place, Time and Situation Level of Consciousness: Alert Patient Behavior: Appropriate, Talkative and Good Eye Contact Mood Description: Calm Affect Description: Calm Patient Cognition Impaired: Yes Ability to Follow Directions: Good Speech Pattern: Spontaneous Speech and Soft-Spoken Memory Description: Remote Impaired Hallucinations: None Delusions: Not Present Thought Process: Distracted and Rumination Thought Content: positive for Perseveration Depressive Symptoms: Thoughts of /Suicide (denies) Judgement: Fair Judgement and Insight: Improving mood in judgment adams affect Diagnostics Vital Signs (24Hr): Vital Signs - 24 hr 09/22/23 18:00 09/23/23 08:00 Temperature 97.7 F 98.4 F Pulse Rate 68 60 Respiratory Rate 16 16 Blood Pressure 129/78 133/68 Pulse Oximetry 96 97 Oxygen Delivery Method Room Air Room Air BMI result Body Mass Index 25.0 Labs 08/24/23 14:53 08/26/23 08:13 Imaging Radiology Impressions: ITS Impressions Ankle X-Ray 09/17/23 14:38 IMPRESSION: Global demineralization. Advanced osteoarthritis left knee. Left ankle soft tissue swelling, question joint effusion. No acute bony pathology. Calcaneal spurring. Knee X-Ray 09/17/23 14:38 IMPRESSION: Global demineralization. Advanced osteoarthritis left knee. Left ankle soft tissue swelling, question joint effusion. No acute bony pathology. Calcaneal spurring. Medications Medications Current Medications Acetaminophen (Acetaminophen 325 Mg Tablet) 650 mg PO Q6H PRN PRN Reason: Headache/Pain Mild Scale (1-3) Last Admin: 09/22/23 23:16 Dose: 650 mg Al Hydroxide/Mg Hydroxide (Magnesium Hydrox/Alum Hydrox 30 Ml Oral.Susp) 30 ml PO Q6H PRN PRN Reason: Heartburn/Nausea Apixaban (Apixaban 5 Mg Tablet) 5 mg PO BID [facility] Last Admin: 09/23/23 08:28 Dose: 5 mg Aripiprazole (Aripiprazole 10 Mg Tablet) 10 mg PO BEDTIME [facility] Last Admin: 09/22/23 21:58 Dose: 10 mg Atorvastatin Calcium (Atorvastatin Calcium 10 Mg Tablet) 10 mg PO BEDTIME [facility] Last Admin: 09/22/23 21:58 Dose: 10 mg Capsaicin (Capsaicin 0.025% Cream 60 Gm Tube) 1 appl TOPICAL QID PRN; Protocol PRN Reason: knee pain Escitalopram Oxalate (Escitalopram Oxalate 5 Mg Tablet) 15 mg PO DAILY [facility] Last Admin: 09/23/23 08:28 Dose: 15 mg Folic Acid (Folic Acid 1 Mg Tablet) 1 mg PO DAILY [facility] Last Admin: 09/23/23 08:28 Dose: 1 mg Haloperidol (Haloperidol 5 Mg Tablet) 5 mg PO BID PRN PRN Reason: severe agitation Hydrocortisone (Hydrocortisone 1 % Cream 28.35 Gm Tube) 1 appl TOPICAL BID [facility]; Protocol Stop: 09/28/23 14:04 Last Admin: 09/23/23 15:19 Dose: 1 appl Hydroxyzine HCl (Hydroxyzine Hcl 25 Mg Tablet) 25 mg PO Q6H PRN PRN Reason: Anxiety Last Admin: 09/23/23 16:40 Dose: 25 mg Lorazepam (Lorazepam 1 Mg Tablet) 1 mg PO BID PRN PRN Reason: anxiety/restlessness Last Admin: 09/14/23 21:47 Dose: 1 mg Magnesium Hydroxide (Milk Of Magnesia 30 Ml Oral.Susp) 30 ml PO DAILY PRN PRN Reason: Constipation Multi-Ingred Cream/Lotion/Oil/Oint (Mineral Oil/Petrolatum,White 106 Gm Tube) 1 appl TOPICAL BID PRN; Protocol PRN Reason: Dry Skin Multivitamins/Vitamin C (Multivitamin Tablet) 1 tab PO DAILY [facility] Last Admin: 09/23/23 08:28 Dose: 1 tab Nicotine Polacrilex (Nicotine Polacrilex Lozenge 2 Mg Lozenge) 2 mg BUCCAL Q2H PRN PRN Reason: Nicotine Cravings Thiamine HCl (Thiamine Hcl 100 Mg Tablet) 100 mg PO BID [facility] Last Admin: 09/23/23 08:28 Dose: 100 mg Trazodone HCl (Trazodone Hcl 50 Mg Tablet) 50 mg PO BEDTIME PRN PRN Reason: Insomnia Last Admin: 09/20/23 21:33 Dose: 50 mg Trazodone HCl (Trazodone Hcl 100 Mg Tablet) 100 mg PO BEDTIME [facility] Last Admin: 09/22/23 21:58 Dose: 100 mg Vitamin D (Cholecalciferol (Vitamin D3) 10 Mcg Tablet) 10 mcg PO DAILY [facility] Last Admin: 09/23/23 08:28 Dose: 10 mcg Allergies Allergies Allergy/AdvReac Type Severity Reaction Status Date / Time No Known Allergies Allergy Verified 08/24/23 13:03 Assessment & Plan Assessment & Plan (1) Recurrent major depression-severe: Status: Acute Code(s): F33.2 - Major depressive disorder, recurrent severe without psychotic features (2) Mild cognitive impairment: Status: Acute Code(s): G31.84 - Mild cognitive impairment of uncertain or unknown etiology Plan 09/11/23- Increase Lexapro to 15 mg daily. 09/21/22- Team reports [facility] has declined pt-continue applications Pt has facial rash-? from Eucerin, hydrocortisone, both or environmental reaction-monitor Pt's HCP will tell her that her dogs will need adoption as she cannot take them to a placement Pt engaged in milieu Continue to support, assist in grieving of losses. 09/23/23 Continue treatment. Patient educated on: therapeutic strategies Informed Consent: further education needed Reason for continued inpatient stay Substantial Risk for: rapid decompensation Time Spent With Patient Time: Total time managing care of this patient today ____ minutes.
[2023-09-23 18:00] VITALS: BP 130/65; PULSE 72; TEMP 37; O2SAT 95
[2023-09-23] MEDS: ARIPiprazole 10 MG TABLET PO (20:37)
[2023-09-23] MEDS: Atorvastatin Calcium 10 MG TABLET PO (20:38)
[2023-09-23] MEDS: traZODone HCL 100 MG TABLET PO (20:38)
[2023-09-24 07:00] VITALS: BMI 26.7
[2023-09-24 08:20] VITALS: BP 136/63; PULSE 62; RESP 16; TEMP 36.4; O2SAT 94
[2023-09-24] MEDS: Multivitamin TABLET 1 TAB PO (08:20)
[2023-09-24] MEDS: Thiamine HCL 100 MG TABLET PO ×2 (08:20→20:15)
[2023-09-24] MEDS: Apixaban 5 MG TABLET PO ×2 (08:20→20:15)
[2023-09-24] MEDS: Cholecalciferol (Vitamin D3) 10 MCG TABLET PO (08:21)
[2023-09-24] MEDS: Escitalopram Oxalate 5 MG TABLET 15 MG PO (08:21)
[2023-09-24] MEDS: Folic Acid 1 MG TABLET PO (08:21)
[2023-09-24] MEDS: Hydrocortisone 1 % Cream 28.35 GM TUBE 1 APPL TOPICAL ×2 (08:34→20:16)
--- NOTE | 2023-09-24 10:52 | P.PNPSI_ITS ---
Subjective Subjective Date of Service: 09/24/23 Reason For Visit: SEC 12,RECENT SI ATTEMPT,CALM/COOP PER EMS Subjective Notes: Conditional Voluntary Healthcare Proxy: No Guardianship: No Medical Problems Affecting Mental Status: No Interim History: Facial rash has diminished with treatment. States today she is feeling well. Conversational with peers, a few phone calls and states, I love to talk and I am always ready to talk . Denies sx or issues of concern today Some confusion noted. We await [facility] Torres's decision on her possible transfer. Medication Compliance: Yes Side effects from medications: No Attending Groups: Yes Review of Systems Acute medical concerns: No Medical Review of Systems: unchanged Review of Systems Skin/Breast: Reports rash (facial) Mental Status Exam Mental Status Exam Patient Appearance: Appropriate Patient Orientation: Person, Place, Time and Situation Level of Consciousness: Alert Patient Behavior: Appropriate, Talkative and Good Eye Contact Mood Description: Calm Affect Description: Calm Patient Cognition Impaired: Yes Ability to Follow Directions: Good Speech Pattern: Spontaneous Speech and Soft-Spoken Memory Description: Remote Impaired Hallucinations: None Delusions: Not Present Thought Process: Distracted and Rumination Thought Content: positive for Perseveration Depressive Symptoms: Thoughts of /Suicide (denies) Judgement: Fair Judgement and Insight: Improving mood in judgment adams affect Diagnostics Vital Signs (24Hr): Vital Signs - 24 hr 09/23/23 18:00 Temperature 98.6 F Pulse Rate 72 Blood Pressure 130/65 Pulse Oximetry 95 Oxygen Delivery Method Room Air BMI result Body Mass Index 25.0 Labs 08/24/23 14:53 08/26/23 08:13 Imaging Radiology Impressions: ITS Impressions Ankle X-Ray 09/17/23 14:38 IMPRESSION: Global demineralization. Advanced osteoarthritis left knee. Left ankle soft tissue swelling, question joint effusion. No acute bony pathology. Calcaneal spurring. Knee X-Ray 09/17/23 14:38 IMPRESSION: Global demineralization. Advanced osteoarthritis left knee. Left ankle soft tissue swelling, question joint effusion. No acute bony pathology. Calcaneal spurring. Medications Medications Current Medications Acetaminophen (Acetaminophen 325 Mg Tablet) 650 mg PO Q6H PRN PRN Reason: Headache/Pain Mild Scale (1-3) Last Admin: 09/22/23 23:16 Dose: 650 mg Al Hydroxide/Mg Hydroxide (Magnesium Hydrox/Alum Hydrox 30 Ml Oral.Susp) 30 ml PO Q6H PRN PRN Reason: Heartburn/Nausea Apixaban (Apixaban 5 Mg Tablet) 5 mg PO BID [facility] [place] Last Admin: 09/24/23 08:20 Dose: 5 mg Aripiprazole (Aripiprazole 10 Mg Tablet) 10 mg PO BEDTIME [facility] [place] Last Admin: 09/23/23 20:37 Dose: 10 mg Atorvastatin Calcium (Atorvastatin Calcium 10 Mg Tablet) 10 mg PO BEDTIME [facility] [place] Last Admin: 09/23/23 20:38 Dose: 10 mg Capsaicin (Capsaicin 0.025% Cream 60 Gm Tube) 1 appl TOPICAL QID PRN; Protocol PRN Reason: knee pain Escitalopram Oxalate (Escitalopram Oxalate 5 Mg Tablet) 15 mg PO DAILY [facility] [place] Last Admin: 09/24/23 08:21 Dose: 15 mg Folic Acid (Folic Acid 1 Mg Tablet) 1 mg PO DAILY [facility] Last Admin: 09/24/23 08:21 Dose: 1 mg Haloperidol (Haloperidol 5 Mg Tablet) 5 mg PO BID PRN PRN Reason: severe agitation Hydrocortisone (Hydrocortisone 1 % Cream 28.35 Gm Tube) 1 appl TOPICAL BID [facility] [place]; Protocol Stop: 09/28/23 14:04 Last Admin: 09/24/23 08:34 Dose: 1 appl Hydroxyzine HCl (Hydroxyzine Hcl 25 Mg Tablet) 25 mg PO Q6H PRN PRN Reason: Anxiety Last Admin: 09/23/23 16:40 Dose: 25 mg Lorazepam (Lorazepam 1 Mg Tablet) 1 mg PO BID PRN PRN Reason: anxiety/restlessness Last Admin: 09/14/23 21:47 Dose: 1 mg Magnesium Hydroxide (Milk Of Magnesia 30 Ml Oral.Susp) 30 ml PO DAILY PRN PRN Reason: Constipation Multi-Ingred Cream/Lotion/Oil/Oint (Mineral Oil/Petrolatum,White 106 Gm Tube) 1 appl TOPICAL BID PRN; Protocol PRN Reason: Dry Skin Multivitamins/Vitamin C (Multivitamin Tablet) 1 tab PO DAILY [facility] [place] Last Admin: 09/24/23 08:20 Dose: 1 tab Nicotine Polacrilex (Nicotine Polacrilex Lozenge 2 Mg Lozenge) 2 mg BUCCAL Q2H PRN PRN Reason: Nicotine Cravings Thiamine HCl (Thiamine Hcl 100 Mg Tablet) 100 mg PO BID [facility] Last Admin: 09/24/23 08:20 Dose: 100 mg Trazodone HCl (Trazodone Hcl 50 Mg Tablet) 50 mg PO BEDTIME PRN PRN Reason: Insomnia Last Admin: 09/20/23 21:33 Dose: 50 mg Trazodone HCl (Trazodone Hcl 100 Mg Tablet) 100 mg PO BEDTIME [facility] Last Admin: 09/23/23 20:38 Dose: 100 mg Vitamin D (Cholecalciferol (Vitamin D3) 10 Mcg Tablet) 10 mcg PO DAILY [facility] Last Admin: 09/24/23 08:21 Dose: 10 mcg Allergies Allergies Allergy/AdvReac Type Severity Reaction Status Date / Time No Known Allergies Allergy Verified 08/24/23 13:03 Assessment & Plan Assessment & Plan (1) Recurrent major depression-severe: Status: Acute Code(s): F33.2 - Major depressive disorder, recurrent severe without psychotic features (2) Mild cognitive impairment: Status: Acute Code(s): G31.84 - Mild cognitive impairment of uncertain or unknown etiology Plan 09/11/23- Increase Lexapro to 15 mg daily. 09/21/22- Team reports [facility] has declined pt-continue applications Pt has facial rash-? from Eucerin, hydrocortisone, both or environmental reaction-monitor Pt's HCP will tell her that her dogs will need adoption as she cannot take them to a placement Pt engaged in milieu Continue to support, assist in grieving of losses. 09/23/23 Continue treatment. 09/24/23 Continue treatment Patient educated on: therapeutic strategies and medical condition Informed Consent: understands and further education needed Reason for continued inpatient stay Substantial Risk for: rapid decompensation Time Spent With Patient Time: Total time managing care of this patient today ____ minutes.
[2023-09-24] MEDS: Mineral Oil/Petrolatum,White 106 GM Tube 1 APPL TOPICAL (14:43)
[2023-09-24 18:00] VITALS: BP 114/76; PULSE 87; TEMP 36.6; O2SAT 95
[2023-09-24] MEDS: Atorvastatin Calcium 10 MG TABLET PO (20:14)
[2023-09-24] MEDS: traZODone HCL 100 MG TABLET PO (20:15)
[2023-09-24] MEDS: ARIPiprazole 10 MG TABLET PO (20:15)
[2023-09-25 08:10] VITALS: BP 115/74; PULSE 60; RESP 16; TEMP 37; O2SAT 97
[2023-09-25] MEDS: Multivitamin TABLET 1 TAB PO (08:32)
[2023-09-25] MEDS: Escitalopram Oxalate 5 MG TABLET 15 MG PO (08:32)
[2023-09-25] MEDS: Thiamine HCL 100 MG TABLET PO ×2 (08:32→20:06)
[2023-09-25] MEDS: Hydrocortisone 1 % Cream 28.35 GM TUBE 1 APPL TOPICAL ×2 (08:32→20:08)
[2023-09-25] MEDS: Cholecalciferol (Vitamin D3) 10 MCG TABLET PO (08:32)
[2023-09-25] MEDS: Apixaban 5 MG TABLET PO ×2 (08:33→20:06)
[2023-09-25] MEDS: Folic Acid 1 MG TABLET PO (08:33)
--- NOTE | 2023-09-25 16:55 | HO.PSYCHPN ---
Subjective Subjective Date of Service: 09/25/23 Reason For Visit: SEC 12,RECENT SI ATTEMPT,CALM/COOP PER EMS Interim History: Met?with?patient;?discussed?with?team Patient?in?good?mood,?pleasant,?cooperative.??Denies?any?complaints?and?has?no?requests. Says?rashes?clearing?up?which?appears?to?be?so Mental Status Exam Mental Status Exam Patient Appearance: Appropriate Patient Orientation: Person, Place, Time and Situation Level of Consciousness: Alert Patient Behavior: Appropriate, Talkative and Good Eye Contact Mood Description: Calm Affect Description: Calm Patient Cognition Impaired: Yes Ability to Follow Directions: Good Speech Pattern: Spontaneous Speech and Soft-Spoken Memory Description: Remote Impaired Hallucinations: None Delusions: Not Present Thought Process: Distracted and Rumination Thought Content: positive for Perseveration Depressive Symptoms: Thoughts of /Suicide (denies) Judgement: Fair Judgement and Insight: Improving mood in judgment adams affect Diagnostics Vital Signs (24Hr): Vital Signs - 24 hr 09/24/23 18:00 09/25/23 08:10 Temperature 97.9 F 98.6 F Pulse Rate 87 60 Respiratory Rate 16 Blood Pressure 114/76 115/74 Pulse Oximetry 95 97 Oxygen Delivery Method Room Air Room Air BMI result Body Mass Index 26.7 Labs 08/24/23 14:53 08/26/23 08:13 Imaging Radiology Impressions: ITS Impressions Ankle X-Ray 09/17/23 14:38 IMPRESSION: Global demineralization. Advanced osteoarthritis left knee. Left ankle soft tissue swelling, question joint effusion. No acute bony pathology. Calcaneal spurring. Knee X-Ray 09/17/23 14:38 IMPRESSION: Global demineralization. Advanced osteoarthritis left knee. Left ankle soft tissue swelling, question joint effusion. No acute bony pathology. Calcaneal spurring. Medications Medications Current Medications Acetaminophen (Acetaminophen 325 Mg Tablet) 650 mg PO Q6H PRN PRN Reason: Headache/Pain Mild Scale (1-3) Last Admin: 09/22/23 23:16 Dose: 650 mg Al Hydroxide/Mg Hydroxide (Magnesium Hydrox/Alum Hydrox 30 Ml Oral.Susp) 30 ml PO Q6H PRN PRN Reason: Heartburn/Nausea Apixaban (Apixaban 5 Mg Tablet) 5 mg PO BID [facility] Last Admin: 09/25/23 08:33 Dose: 5 mg Aripiprazole (Aripiprazole 10 Mg Tablet) 10 mg PO BEDTIME [facility] Last Admin: 09/24/23 20:15 Dose: 10 mg Atorvastatin Calcium (Atorvastatin Calcium 10 Mg Tablet) 10 mg PO BEDTIME [facility] Last Admin: 09/24/23 20:14 Dose: 10 mg Capsaicin (Capsaicin 0.025% Cream 60 Gm Tube) 1 appl TOPICAL QID PRN; Protocol PRN Reason: knee pain Escitalopram Oxalate (Escitalopram Oxalate 5 Mg Tablet) 15 mg PO DAILY [facility] Last Admin: 09/25/23 08:32 Dose: 15 mg Folic Acid (Folic Acid 1 Mg Tablet) 1 mg PO DAILY [facility] Last Admin: 09/25/23 08:33 Dose: 1 mg Haloperidol (Haloperidol 5 Mg Tablet) 5 mg PO BID PRN PRN Reason: severe agitation Hydrocortisone (Hydrocortisone 1 % Cream 28.35 Gm Tube) 1 appl TOPICAL BID [facility]; Protocol Stop: 09/28/23 14:04 Last Admin: 09/25/23 08:32 Dose: 1 appl Hydroxyzine HCl (Hydroxyzine Hcl 25 Mg Tablet) 25 mg PO Q6H PRN PRN Reason: Anxiety Last Admin: 09/23/23 16:40 Dose: 25 mg Lorazepam (Lorazepam 1 Mg Tablet) 1 mg PO BID PRN PRN Reason: anxiety/restlessness Last Admin: 09/14/23 21:47 Dose: 1 mg Magnesium Hydroxide (Milk Of Magnesia 30 Ml Oral.Susp) 30 ml PO DAILY PRN PRN Reason: Constipation Multi-Ingred Cream/Lotion/Oil/Oint (Mineral Oil/Petrolatum,White 106 Gm Tube) 1 appl TOPICAL BID PRN; Protocol PRN Reason: Dry Skin Last Admin: 09/24/23 14:43 Dose: 1 appl Multivitamins/Vitamin C (Multivitamin Tablet) 1 tab PO DAILY [facility] Last Admin: 09/25/23 08:32 Dose: 1 tab Nicotine Polacrilex (Nicotine Polacrilex Lozenge 2 Mg Lozenge) 2 mg BUCCAL Q2H PRN PRN Reason: Nicotine Cravings Thiamine HCl (Thiamine Hcl 100 Mg Tablet) 100 mg PO BID [facility] Last Admin: 09/25/23 08:32 Dose: 100 mg Trazodone HCl (Trazodone Hcl 50 Mg Tablet) 50 mg PO BEDTIME PRN PRN Reason: Insomnia Last Admin: 09/20/23 21:33 Dose: 50 mg Trazodone HCl (Trazodone Hcl 100 Mg Tablet) 100 mg PO BEDTIME [facility] Last Admin: 09/24/23 20:15 Dose: 100 mg Vitamin D (Cholecalciferol (Vitamin D3) 10 Mcg Tablet) 10 mcg PO DAILY [facility] Last Admin: 09/25/23 08:32 Dose: 10 mcg Allergies Allergies Allergy/AdvReac Type Severity Reaction Status Date / Time No Known Allergies Allergy Verified 08/24/23 13:03 Assessment & Plan Assessment & Plan (1) Recurrent major depression-severe: Status: Acute Code(s): F33.2 - Major depressive disorder, recurrent severe without psychotic features (2) Mild cognitive impairment: Status: Acute Code(s): G31.84 - Mild cognitive impairment of uncertain or unknown etiology Plan 09/11/23- Increase Lexapro to 15 mg daily. 09/21/22- Team reports [facility] has declined pt-continue applications Pt has facial rash-? from Eucerin, hydrocortisone, both or environmental reaction-monitor Pt's HCP will tell her that her dogs will need adoption as she cannot take them to a placement Pt engaged in milieu Continue to support, assist in grieving of losses. 09/23/23 Continue treatment. 09/24/23 Continue treatment 09/25/2023?continue?current?treatment?plan Patient educated on: diagnosis Informed Consent: understands Reason for continued inpatient stay Substantial Risk for: stable for discharge Time Spent With Patient Time: Total time managing care of this patient today ____ minutes.
[2023-09-25] MEDS: ARIPiprazole 10 MG TABLET PO (20:05)
[2023-09-25] MEDS: traZODone HCL 100 MG TABLET PO (20:06)
[2023-09-25] MEDS: Atorvastatin Calcium 10 MG TABLET PO (20:06)
[2023-09-25 20:30] VITALS: BP 113/64; PULSE 73; RESP 16; TEMP 36.6; O2SAT 96
[2023-09-26] MEDS: Folic Acid 1 MG TABLET PO (09:16)
[2023-09-26] MEDS: Multivitamin TABLET 1 TAB PO (09:16)
[2023-09-26] MEDS: Escitalopram Oxalate 5 MG TABLET 15 MG PO (09:16)
[2023-09-26] MEDS: Cholecalciferol (Vitamin D3) 10 MCG TABLET PO (09:16)
[2023-09-26] MEDS: Thiamine HCL 100 MG TABLET PO ×2 (09:16→20:38)
[2023-09-26] MEDS: Hydrocortisone 1 % Cream 28.35 GM TUBE 1 APPL TOPICAL ×2 (09:16→20:39)
[2023-09-26] MEDS: Apixaban 5 MG TABLET PO ×2 (09:16→20:38)
[2023-09-26 09:19] VITALS: BP 120/66; PULSE 64; RESP 16; TEMP 36.4; O2SAT 97
[2023-09-26] MEDS: Mineral Oil/Petrolatum,White 106 GM Tube 1 APPL TOPICAL (09:36)
--- NOTE | 2023-09-26 09:51 | HO.PSYCHPN ---
Subjective Subjective Date of Service: 09/26/23 Reason For Visit: SEC 12,RECENT SI ATTEMPT,CALM/COOP PER EMS Subjective Notes: Conditional Voluntary Interim History: Patient was seen and discussed in rounds today. Records and plans were reviewed. She is doing better, not having much depression or sadness. She is isolative but does, and socialize. No complaints or side effects. Eating and sleeping adequately. No changes Review of Systems Review of Systems Facial rash/addressed Yes all other systems are reviewed and are negative Mental Status Exam Mental Status Exam Patient Appearance: Appropriate Patient Orientation: Person, Place, Time and Situation Level of Consciousness: Alert Patient Behavior: Appropriate, Talkative and Good Eye Contact Mood Description: Calm Affect Description: Calm Patient Cognition Impaired: Yes Ability to Follow Directions: Good Speech Pattern: Spontaneous Speech and Soft-Spoken Memory Description: Remote Impaired Hallucinations: None Delusions: Not Present Thought Process: Distracted and Rumination Thought Content: positive for Perseveration Depressive Symptoms: Thoughts of /Suicide (denies) Judgement: Fair Judgement and Insight: Improving mood in judgment adams affect Diagnostics Vital Signs (24Hr): Vital Signs - 24 hr 09/25/23 20:30 09/26/23 09:19 Temperature 97.9 F 97.5 F Pulse Rate 73 64 Respiratory Rate 16 16 Blood Pressure 113/64 120/66 Pulse Oximetry 96 97 Oxygen Delivery Method Room Air Room Air BMI result Body Mass Index 26.7 Labs 08/24/23 14:53 08/26/23 08:13 Imaging Radiology Impressions: ITS Impressions Ankle X-Ray 09/17/23 14:38 IMPRESSION: Global demineralization. Advanced osteoarthritis left knee. Left ankle soft tissue swelling, question joint effusion. No acute bony pathology. Calcaneal spurring. Knee X-Ray 09/17/23 14:38 IMPRESSION: Global demineralization. Advanced osteoarthritis left knee. Left ankle soft tissue swelling, question joint effusion. No acute bony pathology. Calcaneal spurring. Medications Medications Current Medications Acetaminophen (Acetaminophen 325 Mg Tablet) 650 mg PO Q6H PRN PRN Reason: Headache/Pain Mild Scale (1-3) Last Admin: 09/22/23 23:16 Dose: 650 mg Al Hydroxide/Mg Hydroxide (Magnesium Hydrox/Alum Hydrox 30 Ml Oral.Susp) 30 ml PO Q6H PRN PRN Reason: Heartburn/Nausea Apixaban (Apixaban 5 Mg Tablet) 5 mg PO BID [facility] Last Admin: 09/26/23 09:16 Dose: 5 mg Aripiprazole (Aripiprazole 10 Mg Tablet) 10 mg PO BEDTIME [facility] Last Admin: 09/25/23 20:05 Dose: 10 mg Atorvastatin Calcium (Atorvastatin Calcium 10 Mg Tablet) 10 mg PO BEDTIME [facility] Last Admin: 09/25/23 20:06 Dose: 10 mg Capsaicin (Capsaicin 0.025% Cream 60 Gm Tube) 1 appl TOPICAL QID PRN; Protocol PRN Reason: knee pain Escitalopram Oxalate (Escitalopram Oxalate 5 Mg Tablet) 15 mg PO DAILY [facility] Last Admin: 09/26/23 09:16 Dose: 15 mg Folic Acid (Folic Acid 1 Mg Tablet) 1 mg PO DAILY [facility] Last Admin: 09/26/23 09:16 Dose: 1 mg Haloperidol (Haloperidol 5 Mg Tablet) 5 mg PO BID PRN PRN Reason: severe agitation Hydrocortisone (Hydrocortisone 1 % Cream 28.35 Gm Tube) 1 appl TOPICAL BID [facility]; Protocol Stop: 09/28/23 14:04 Last Admin: 09/26/23 09:16 Dose: 1 appl Hydroxyzine HCl (Hydroxyzine Hcl 25 Mg Tablet) 25 mg PO Q6H PRN PRN Reason: Anxiety Last Admin: 09/23/23 16:40 Dose: 25 mg Lorazepam (Lorazepam 1 Mg Tablet) 1 mg PO BID PRN PRN Reason: anxiety/restlessness Last Admin: 09/14/23 21:47 Dose: 1 mg Magnesium Hydroxide (Milk Of Magnesia 30 Ml Oral.Susp) 30 ml PO DAILY PRN PRN Reason: Constipation Multi-Ingred Cream/Lotion/Oil/Oint (Mineral Oil/Petrolatum,White 106 Gm Tube) 1 appl TOPICAL BID PRN; Protocol PRN Reason: Dry Skin Last Admin: 09/26/23 09:36 Dose: 1 appl Multivitamins/Vitamin C (Multivitamin Tablet) 1 tab PO DAILY [facility] Last Admin: 09/26/23 09:16 Dose: 1 tab Nicotine Polacrilex (Nicotine Polacrilex Lozenge 2 Mg Lozenge) 2 mg BUCCAL Q2H PRN PRN Reason: Nicotine Cravings Thiamine HCl (Thiamine Hcl 100 Mg Tablet) 100 mg PO BID [facility] Last Admin: 09/26/23 09:16 Dose: 100 mg Trazodone HCl (Trazodone Hcl 50 Mg Tablet) 50 mg PO BEDTIME PRN PRN Reason: Insomnia Last Admin: 09/20/23 21:33 Dose: 50 mg Trazodone HCl (Trazodone Hcl 100 Mg Tablet) 100 mg PO BEDTIME [facility] Last Admin: 09/25/23 20:06 Dose: 100 mg Vitamin D (Cholecalciferol (Vitamin D3) 10 Mcg Tablet) 10 mcg PO DAILY [facility] Last Admin: 09/26/23 09:16 Dose: 10 mcg Allergies Allergies Allergy/AdvReac Type Severity Reaction Status Date / Time No Known Allergies Allergy Verified 08/24/23 13:03 Assessment & Plan Assessment & Plan (1) Recurrent major depression-severe: Status: Acute Code(s): F33.2 - Major depressive disorder, recurrent severe without psychotic features (2) Mild cognitive impairment: Status: Acute Code(s): G31.84 - Mild cognitive impairment of uncertain or unknown etiology Plan 09/11/23- Increase Lexapro to 15 mg daily. 09/21/22- Team reports [facility] has declined pt-continue applications Pt has facial rash-? from Eucerin, hydrocortisone, both or environmental reaction-monitor Pt's HCP will tell her that her dogs will need adoption as she cannot take them to a placement Pt engaged in milieu Continue to support, assist in grieving of losses. 09/23/23 Continue treatment. 09/24/23 Continue treatment 09/26/23: Continue current regimen and plans Reason for continued inpatient stay Substantial Risk for: med/psych decompensation Time Spent With Patient Time: Total time managing care of this patient today ____ minutes.
[2023-09-26 20:25] VITALS: BP 107/63; PULSE 72; RESP 16; TEMP 37.1; O2SAT 96
[2023-09-26] MEDS: Atorvastatin Calcium 10 MG TABLET PO (20:38)
[2023-09-26] MEDS: traZODone HCL 100 MG TABLET PO (20:38)
[2023-09-26] MEDS: ARIPiprazole 10 MG TABLET PO (20:38)
[2023-09-27 08:14] VITALS: BP 126/66; PULSE 62; RESP 16; TEMP 36.7; O2SAT 97
[2023-09-27] MEDS: Escitalopram Oxalate 5 MG TABLET 15 MG PO (08:31)
[2023-09-27] MEDS: Cholecalciferol (Vitamin D3) 10 MCG TABLET PO (08:32)
[2023-09-27] MEDS: Apixaban 5 MG TABLET PO ×2 (08:32→21:28)
[2023-09-27] MEDS: Thiamine HCL 100 MG TABLET PO ×2 (08:32→21:28)
[2023-09-27] MEDS: Folic Acid 1 MG TABLET PO (08:32)
[2023-09-27] MEDS: Multivitamin TABLET 1 TAB PO (08:32)
[2023-09-27] MEDS: Hydrocortisone 1 % Cream 28.35 GM TUBE 1 APPL TOPICAL (08:37)
--- NOTE | 2023-09-27 09:29 | HO.PSYCHPN ---
Subjective Subjective Date of Service: 09/27/23 Reason For Visit: SEC 12,RECENT SI ATTEMPT,CALM/COOP PER EMS Subjective Notes: Conditional Voluntary Interim History: Patient was seen and discussed in rounds today. Records and plans were reviewed. She has been stable and is doing well. She is denying any symptoms of depression or anxiety. She is visible, cheerful. She is medication compliant. No side effects. Sleeping adequately. No changes were made today Review of Systems Review of Systems Yes all other systems are reviewed and are negative Mental Status Exam Mental Status Exam Patient Appearance: Appropriate Patient Orientation: Person, Place, Time and Situation Level of Consciousness: Alert Patient Behavior: Appropriate, Talkative and Good Eye Contact Mood Description: Calm Affect Description: Calm Patient Cognition Impaired: Yes Ability to Follow Directions: Good Speech Pattern: Spontaneous Speech and Soft-Spoken Memory Description: Remote Impaired Hallucinations: None Delusions: Not Present Thought Process: Distracted and Rumination Thought Content: positive for Perseveration Depressive Symptoms: Thoughts of /Suicide (denies) Judgement: Fair Judgement and Insight: Improving mood in judgment adams affect Diagnostics Vital Signs (24Hr): Vital Signs - 24 hr 09/26/23 20:25 09/27/23 08:14 Temperature 98.7 F 98.1 F Pulse Rate 72 62 Respiratory Rate 16 16 Blood Pressure 107/63 126/66 Pulse Oximetry 96 97 Oxygen Delivery Method Room Air Room Air BMI result Body Mass Index 26.7 Labs 08/24/23 14:53 08/26/23 08:13 Imaging Radiology Impressions: ITS Impressions Ankle X-Ray 09/17/23 14:38 IMPRESSION: Global demineralization. Advanced osteoarthritis left knee. Left ankle soft tissue swelling, question joint effusion. No acute bony pathology. Calcaneal spurring. Knee X-Ray 09/17/23 14:38 IMPRESSION: Global demineralization. Advanced osteoarthritis left knee. Left ankle soft tissue swelling, question joint effusion. No acute bony pathology. Calcaneal spurring. Medications Medications Current Medications Acetaminophen (Acetaminophen 325 Mg Tablet) 650 mg PO Q6H PRN PRN Reason: Headache/Pain Mild Scale (1-3) Last Admin: 09/22/23 23:16 Dose: 650 mg Al Hydroxide/Mg Hydroxide (Magnesium Hydrox/Alum Hydrox 30 Ml Oral.Susp) 30 ml PO Q6H PRN PRN Reason: Heartburn/Nausea Apixaban (Apixaban 5 Mg Tablet) 5 mg PO BID [facility] Last Admin: 09/27/23 08:32 Dose: 5 mg Aripiprazole (Aripiprazole 10 Mg Tablet) 10 mg PO BEDTIME [facility] Last Admin: 09/26/23 20:38 Dose: 10 mg Atorvastatin Calcium (Atorvastatin Calcium 10 Mg Tablet) 10 mg PO BEDTIME [facility] Last Admin: 09/26/23 20:38 Dose: 10 mg Capsaicin (Capsaicin 0.025% Cream 60 Gm Tube) 1 appl TOPICAL QID PRN; Protocol PRN Reason: knee pain Escitalopram Oxalate (Escitalopram Oxalate 5 Mg Tablet) 15 mg PO DAILY [facility] Last Admin: 09/27/23 08:31 Dose: 15 mg Folic Acid (Folic Acid 1 Mg Tablet) 1 mg PO DAILY [facility] Last Admin: 09/27/23 08:32 Dose: 1 mg Haloperidol (Haloperidol 5 Mg Tablet) 5 mg PO BID PRN PRN Reason: severe agitation Hydrocortisone (Hydrocortisone 1 % Cream 28.35 Gm Tube) 1 appl TOPICAL BID [facility]; Protocol Stop: 09/28/23 14:04 Last Admin: 09/27/23 08:37 Dose: 1 appl Hydroxyzine HCl (Hydroxyzine Hcl 25 Mg Tablet) 25 mg PO Q6H PRN PRN Reason: Anxiety Last Admin: 09/23/23 16:40 Dose: 25 mg Lorazepam (Lorazepam 1 Mg Tablet) 1 mg PO BID PRN PRN Reason: anxiety/restlessness Last Admin: 09/14/23 21:47 Dose: 1 mg Magnesium Hydroxide (Milk Of Magnesia 30 Ml Oral.Susp) 30 ml PO DAILY PRN PRN Reason: Constipation Multi-Ingred Cream/Lotion/Oil/Oint (Mineral Oil/Petrolatum,White 106 Gm Tube) 1 appl TOPICAL BID PRN; Protocol PRN Reason: Dry Skin Last Admin: 09/26/23 09:36 Dose: 1 appl Multivitamins/Vitamin C (Multivitamin Tablet) 1 tab PO DAILY [facility] Last Admin: 09/27/23 08:32 Dose: 1 tab Nicotine Polacrilex (Nicotine Polacrilex Lozenge 2 Mg Lozenge) 2 mg BUCCAL Q2H PRN PRN Reason: Nicotine Cravings Thiamine HCl (Thiamine Hcl 100 Mg Tablet) 100 mg PO BID [facility] Last Admin: 09/27/23 08:32 Dose: 100 mg Trazodone HCl (Trazodone Hcl 50 Mg Tablet) 50 mg PO BEDTIME PRN PRN Reason: Insomnia Last Admin: 09/20/23 21:33 Dose: 50 mg Trazodone HCl (Trazodone Hcl 100 Mg Tablet) 100 mg PO BEDTIME [facility] Last Admin: 09/26/23 20:38 Dose: 100 mg Vitamin D (Cholecalciferol (Vitamin D3) 10 Mcg Tablet) 10 mcg PO DAILY [facility] Last Admin: 09/27/23 08:32 Dose: 10 mcg Allergies Allergies Allergy/AdvReac Type Severity Reaction Status Date / Time No Known Allergies Allergy Verified 08/24/23 13:03 Assessment & Plan Assessment & Plan (1) Recurrent major depression-severe: Status: Acute Code(s): F33.2 - Major depressive disorder, recurrent severe without psychotic features (2) Mild cognitive impairment: Status: Acute Code(s): G31.84 - Mild cognitive impairment of uncertain or unknown etiology Plan 09/11/23- Increase Lexapro to 15 mg daily. 09/21/22- Team reports [facility] has declined pt-continue applications Pt has facial rash-? from Eucerin, hydrocortisone, both or environmental reaction-monitor Pt's HCP will tell her that her dogs will need adoption as she cannot take them to a placement Pt engaged in milieu Continue to support, assist in grieving of losses. 09/23/23 Continue treatment. 09/24/23 Continue treatment 09/25/2023?continue?current?treatment?plan 09/27/2023: Continue current regimen and plans Reason for continued inpatient stay Substantial Risk for: med/psych decompensation Time Spent With Patient Time: Total time managing care of this patient today ____ minutes.
[2023-09-27 17:23] VITALS: BP 103/67; PULSE 89; RESP 17; TEMP 36.7; O2SAT 95
[2023-09-27] MEDS: ARIPiprazole 10 MG TABLET PO (21:28)
[2023-09-27] MEDS: traZODone HCL 100 MG TABLET PO (21:28)
[2023-09-27] MEDS: Atorvastatin Calcium 10 MG TABLET PO (21:28)
[2023-09-28 08:10] VITALS: BP 117/61; PULSE 67; TEMP 36.4; O2SAT 94
[2023-09-28] MEDS: Apixaban 5 MG TABLET PO ×2 (08:47→21:04)
[2023-09-28] MEDS: Folic Acid 1 MG TABLET PO (08:47)
[2023-09-28] MEDS: Multivitamin TABLET 1 TAB PO (08:47)
[2023-09-28] MEDS: Escitalopram Oxalate 5 MG TABLET 15 MG PO (08:47)
[2023-09-28] MEDS: Cholecalciferol (Vitamin D3) 10 MCG TABLET PO (08:47)
[2023-09-28] MEDS: Thiamine HCL 100 MG TABLET PO ×2 (08:47→21:04)
--- NOTE | 2023-09-28 12:08 | HO.PSYCHPN ---
Subjective Subjective Date of Service: 09/28/23 Reason For Visit: SEC 12,RECENT SI ATTEMPT,CALM/COOP PER EMS Subjective Notes: Conditional Voluntary Healthcare Proxy: Yes Guardianship: No Medical Problems Affecting Mental Status: No Interim History: Pt seen, discussed with the team. HCP reports she believes pt is overmedicated. Pt reports feeling well, denies feeling overmedicated. She was seen today by the team from [facility]. They believe she will be accepted. Pt is interactive in the milieu, with peers, walking with peers and attending milieu activities. Medication Compliance: Yes Side effects from medications: Yes (??HCP believes pt is overmedicated) Attending Groups: Yes Review of Systems Acute medical concerns: No Medical Review of Systems: unchanged Review of Systems Review of Systems Yes all other systems are reviewed and are negative (pt denies today) Mental Status Exam Mental Status Exam Patient Appearance: Appropriate Patient Orientation: Person, Place, Time and Situation Level of Consciousness: Alert Patient Behavior: Talkative and Good Eye Contact Mood Description: Calm Affect Description: Calm Patient Cognition Impaired: Yes Ability to Follow Directions: Good Speech Pattern: Spontaneous Speech Memory Description: Remote Impaired Hallucinations: None Delusions: Not Present Thought Process: Distracted and Confusion Thought Content: positive for Circumstantial and positive for Suicidal Ideation (denies) Depressive Symptoms: Thoughts of /Suicide (denies) Judgement: Poor Diagnostics Vital Signs (24Hr): Vital Signs - 24 hr 09/27/23 17:23 09/28/23 08:10 Temperature 98.0 F 97.5 F Pulse Rate 89 67 Respiratory Rate 17 Blood Pressure 103/67 117/61 Pulse Oximetry 95 94 Oxygen Delivery Method Room Air Room Air BMI result Body Mass Index 26.7 Labs 08/24/23 14:53 08/26/23 08:13 Imaging Radiology Impressions: ITS Impressions Ankle X-Ray 09/17/23 14:38 IMPRESSION: Global demineralization. Advanced osteoarthritis left knee. Left ankle soft tissue swelling, question joint effusion. No acute bony pathology. Calcaneal spurring. Knee X-Ray 09/17/23 14:38 IMPRESSION: Global demineralization. Advanced osteoarthritis left knee. Left ankle soft tissue swelling, question joint effusion. No acute bony pathology. Calcaneal spurring. Medications Medications Current Medications Acetaminophen (Acetaminophen 325 Mg Tablet) 650 mg PO Q6H PRN PRN Reason: Headache/Pain Mild Scale (1-3) Last Admin: 09/22/23 23:16 Dose: 650 mg Al Hydroxide/Mg Hydroxide (Magnesium Hydrox/Alum Hydrox 30 Ml Oral.Susp) 30 ml PO Q6H PRN PRN Reason: Heartburn/Nausea Apixaban (Apixaban 5 Mg Tablet) 5 mg PO BID [facility] Last Admin: 09/28/23 08:47 Dose: 5 mg Aripiprazole (Aripiprazole 10 Mg Tablet) 10 mg PO BEDTIME [facility] Last Admin: 09/27/23 21:28 Dose: 10 mg Atorvastatin Calcium (Atorvastatin Calcium 10 Mg Tablet) 10 mg PO BEDTIME [facility] Last Admin: 09/27/23 21:28 Dose: 10 mg Capsaicin (Capsaicin 0.025% Cream 60 Gm Tube) 1 appl TOPICAL QID PRN; Protocol PRN Reason: knee pain Escitalopram Oxalate (Escitalopram Oxalate 5 Mg Tablet) 15 mg PO DAILY [facility] Last Admin: 09/28/23 08:47 Dose: 15 mg Folic Acid (Folic Acid 1 Mg Tablet) 1 mg PO DAILY [facility] Last Admin: 09/28/23 08:47 Dose: 1 mg Hydrocortisone (Hydrocortisone 1 % Cream 28.35 Gm Tube) 1 appl TOPICAL BID [facility]; Protocol Stop: 09/28/23 14:04 Last Admin: 09/28/23 09:11 Dose: Not Given Hydroxyzine HCl (Hydroxyzine Hcl 25 Mg Tablet) 25 mg PO Q6H PRN PRN Reason: Anxiety Last Admin: 09/23/23 16:40 Dose: 25 mg Lorazepam (Lorazepam 1 Mg Tablet) 1 mg PO BID PRN PRN Reason: anxiety/restlessness Last Admin: 09/14/23 21:47 Dose: 1 mg Magnesium Hydroxide (Milk Of Magnesia 30 Ml Oral.Susp) 30 ml PO DAILY PRN PRN Reason: Constipation Multi-Ingred Cream/Lotion/Oil/Oint (Mineral Oil/Petrolatum,White 106 Gm Tube) 1 appl TOPICAL BID PRN; Protocol PRN Reason: Dry Skin Last Admin: 09/26/23 09:36 Dose: 1 appl Multivitamins/Vitamin C (Multivitamin Tablet) 1 tab PO DAILY [facility] Last Admin: 09/28/23 08:47 Dose: 1 tab Nicotine Polacrilex (Nicotine Polacrilex Lozenge 2 Mg Lozenge) 2 mg BUCCAL Q2H PRN PRN Reason: Nicotine Cravings Thiamine HCl (Thiamine Hcl 100 Mg Tablet) 100 mg PO BID [facility] Last Admin: 09/28/23 08:47 Dose: 100 mg Trazodone HCl (Trazodone Hcl 50 Mg Tablet) 50 mg PO BEDTIME PRN PRN Reason: Insomnia Last Admin: 09/20/23 21:33 Dose: 50 mg Trazodone HCl (Trazodone Hcl 100 Mg Tablet) 100 mg PO BEDTIME [facility] Last Admin: 09/27/23 21:28 Dose: 100 mg Vitamin D (Cholecalciferol (Vitamin D3) 10 Mcg Tablet) 10 mcg PO DAILY [facility] Last Admin: 09/28/23 08:47 Dose: 10 mcg Allergies Allergies Allergy/AdvReac Type Severity Reaction Status Date / Time No Known Allergies Allergy Verified 08/24/23 13:03 Assessment & Plan Assessment & Plan (1) Recurrent major depression-severe: Status: Acute Code(s): F33.2 - Major depressive disorder, recurrent severe without psychotic features (2) Mild cognitive impairment: Status: Acute Code(s): G31.84 - Mild cognitive impairment of uncertain or unknown etiology Plan 09/11/23- Increase Lexapro to 15 mg daily. 09/21/22- Team reports [facility] has declined pt-continue applications Pt has facial rash-? from Eucerin, hydrocortisone, both or environmental reaction-monitor Pt's HCP will tell her that her dogs will need adoption as she cannot take them to a placement Pt engaged in milieu Continue to support, assist in grieving of losses. 09/23/23 Continue treatment. 09/24/23 Continue treatment 09/25/2023?continue?current?treatment?plan 09/27/2023: Continue current regimen and plans 09/28/23 HCP reports pt is appearing overmedicated -decrease lorazepam to 0.5 mg bid prn -decrease lexapro to 10 mg daily -decrease trazodone to 50 mg hs Informed Consent: further education needed Reason for continued inpatient stay Substantial Risk for: rapid decompensation Time Spent With Patient Time: Total time managing care of this patient today ____ minutes.
[2023-09-28 17:27] VITALS: BP 118/66; PULSE 76; RESP 18; TEMP 36.3; O2SAT 96
--- NOTE | 2023-09-28 19:41 | PC.NURSE ---
Assumed care of pt at 19:30. Sitting in bed, offering no complaints at this time. Plan of care ongoing.
[2023-09-28] MEDS: traZODone HCL 50 MG TABLET PO (21:04)
[2023-09-28] MEDS: ARIPiprazole 10 MG TABLET PO (21:04)
[2023-09-28] MEDS: Atorvastatin Calcium 10 MG TABLET PO (21:04)
[2023-09-29 08:41] VITALS: BP 106/65; PULSE 65; RESP 18; TEMP 36.4; O2SAT 96
[2023-09-29 08:41] LABS: MANUAL DIFF FLAG NO
[2023-09-29 08:49] LABS: Basophils Absolute Auto 0.1 X10*3/uL (0.0-0.2); Basophils Percent Auto 1.1 % (0-2); Eosinophils Absolute Auto 0.4 X10*3/uL (0.0-0.4); Eosinophils Percent Auto 5.6 % (0-4); Hemoglobin 13.5 g/dl (12.0-16.0); Imm Gran Abs Auto 0.02 X10*3/uL (0.00-0.03); Imm Gran Pct Auto 0.3 % (0.0-0.4); Lymphocytes Absolute Auto 1.8 X10*3/uL (1.2-4.9); Lymphocytes Percent Auto 26.3 % (20-40); Mean Corpuscular HGB Conc 31.4 g/dl (31.0-35.0); Mean Corpuscular Hemoglobin 29.9 pg (27.0-33.0); Mean Corpuscular Volume 95.3 fL (80.0-98.0); Mean Platelet Volume 10.2 fL (9.4-12.3); Monocytes Absolute Auto 0.4 X10*3/uL (0.1-1.2); Neutrophils Absolute Auto 4.2 x10*3/uL (2.0-8.3); Neutrophils Percent Auto 60.7 % (45-73); Platelet Count 242 X10*3/uL (160-400); Red Blood Count 4.51 X10*6/uL (4.20-5.50); Red Cell Distribution Width 13.6 % (11.0-16.0)
[2023-09-29] MEDS: Apixaban 5 MG TABLET PO ×2 (09:06→20:06)
[2023-09-29] MEDS: Thiamine HCL 100 MG TABLET PO ×2 (09:06→20:06)
[2023-09-29] MEDS: Escitalopram Oxalate 10 MG TABLET PO (09:06)
[2023-09-29] MEDS: Cholecalciferol (Vitamin D3) 10 MCG TABLET PO (09:06)
[2023-09-29] MEDS: Folic Acid 1 MG TABLET PO (09:06)
[2023-09-29] MEDS: Multivitamin TABLET 1 TAB PO (09:06)
[2023-09-29 09:37] LABS: Alanine Aminotransferase 19 U/L (0-31); Albumin Level 3.7 g/dL (3.5-5.0); Alkaline Phosphatase 60 U/L (39-117); Anion Gap 12 (12-20); Aspartate Amino Transferase 25 U/L (5-31); Bilirubin Total 0.4 mg/dL (0.0-1.0); Blood Urea Nitrogen 20 mg/dL (9-16); Calcium 9.5 mg/dL (8.4-10.2); Carbon Dioxide 29 mmol/L (22-29); Chloride 108 mmol/L (96-108); Creatinine Clr Calc Pharmacy 73.4; Estimated Glomerular Filt Rate > 60; Glucose Random 83 mg/dL (60-115); Potassium 4.6 mmol/L (3.3-5.1); Sodium 144 mmol/L (135-145)
[2023-09-29] MEDS: Mineral Oil/Petrolatum,White 106 GM Tube 1 APPL TOPICAL (10:23)
--- NOTE | 2023-09-29 19:51 | P.PNPSI_ITS ---
Subjective Subjective Date of Service: 09/29/23 Reason For Visit: SEC 12,RECENT SI ATTEMPT,CALM/COOP PER EMS Subjective Notes: Conditional Voluntary Healthcare Proxy: No Guardianship: No Medical Problems Affecting Mental Status: No Interim History: Pt seen, discussed with team. Pt reports feeling well. Today, she talked of needing to have her dogs adopted. She spoke of both, their histories and personalities, likes and dislikes and her hope that they would continue to have good lives. She was tearful at times during this conversation. Medication Compliance: Yes Side effects from medications: No Attending Groups: Yes Review of Systems Acute medical concerns: No Medical Review of Systems: unchanged Review of Systems Review of Systems Yes all other systems are reviewed and are negative (pt denies today) Mental Status Exam Mental Status Exam Patient Appearance: Appropriate Patient Orientation: Person, Place, Time and Situation Level of Consciousness: Alert Patient Behavior: Talkative and Good Eye Contact Mood Description: Calm Affect Description: Calm Patient Cognition Impaired: Yes Ability to Follow Directions: Good Speech Pattern: Spontaneous Speech Memory Description: Remote Impaired Hallucinations: None Delusions: Not Present Thought Process: Distracted and Confusion Thought Content: positive for Circumstantial and positive for Suicidal Ideation (denies) Depressive Symptoms: Thoughts of /Suicide (denies) Judgement: Poor Diagnostics Vital Signs (24Hr): Vital Signs - 24 hr 09/29/23 08:41 Temperature 97.6 F Pulse Rate 65 Respiratory Rate 18 Blood Pressure 106/65 Pulse Oximetry 96 Oxygen Delivery Method Room Air BMI result Body Mass Index 26.7 Labs 09/29/23 08:35 09/29/23 08:35 Labs: Laboratory Results - last 48 hr 09/29/23 08:35 WBC 7.0 RBC 4.51 Hgb 13.5 Hct 43.0 MCV 95.3 MCH 29.9 MCHC 31.4 RDW 13.6 Plt Count 242 D MPV 10.2 Immature Gran % (Auto) 0.3 Neut % (Auto) 60.7 Lymph % (Auto) 26.3 [place] % (Auto) 6.0 Eos % (Auto) 5.6 H Baso % (Auto) 1.1 Lymph # (Auto) 1.8 [place] # (Auto) 0.4 Eos # (Auto) 0.4 Baso # (Auto) 0.1 Abs Immat Gran (auto) 0.02 Absolute Neuts (auto) 4.2 Absolute Nucleated RBC 0.000 Nucleated RBC % (auto) 0.0 Sodium 144 Potassium 4.6 Chloride 108 Carbon Dioxide 29 Anion Gap 12 BUN 20 H Creatinine 0.70 Estim Creat Clear Calc 73.4 Estimated GFR > 60 Random Glucose 83 Calcium 9.5 Total Bilirubin 0.4 AST 25 ALT 19 Alkaline Phosphatase 60 Total Protein 7.0 Albumin 3.7 Imaging Radiology Impressions: ITS Impressions Ankle X-Ray 09/17/23 14:38 IMPRESSION: Global demineralization. Advanced osteoarthritis left knee. Left ankle soft tissue swelling, question joint effusion. No acute bony pathology. Calcaneal spurring. Knee X-Ray 09/17/23 14:38 IMPRESSION: Global demineralization. Advanced osteoarthritis left knee. Left ankle soft tissue swelling, question joint effusion. No acute bony pathology. Calcaneal spurring. Medications Medications Current Medications Acetaminophen (Acetaminophen 325 Mg Tablet) 650 mg PO Q6H PRN PRN Reason: Headache/Pain Mild Scale (1-3) Last Admin: 09/22/23 23:16 Dose: 650 mg Al Hydroxide/Mg Hydroxide (Magnesium Hydrox/Alum Hydrox 30 Ml Oral.Susp) 30 ml PO Q6H PRN PRN Reason: Heartburn/Nausea Apixaban (Apixaban 5 Mg Tablet) 5 mg PO BID [facility] Last Admin: 09/29/23 09:06 Dose: 5 mg Aripiprazole (Aripiprazole 10 Mg Tablet) 10 mg PO BEDTIME [facility] Last Admin: 09/28/23 21:04 Dose: 10 mg Atorvastatin Calcium (Atorvastatin Calcium 10 Mg Tablet) 10 mg PO BEDTIME [facility] Last Admin: 09/28/23 21:04 Dose: 10 mg Capsaicin (Capsaicin 0.025% Cream 60 Gm Tube) 1 appl TOPICAL QID PRN; Protocol PRN Reason: knee pain Last Admin: 09/29/23 10:23 Dose: 1 appl Escitalopram Oxalate (Escitalopram Oxalate 10 Mg Tablet) 10 mg PO DAILY [facility] Last Admin: 09/29/23 09:06 Dose: 10 mg Folic Acid (Folic Acid 1 Mg Tablet) 1 mg PO DAILY [facility] Last Admin: 09/29/23 09:06 Dose: 1 mg Hydroxyzine HCl (Hydroxyzine Hcl 25 Mg Tablet) 25 mg PO Q6H PRN PRN Reason: Anxiety Last Admin: 09/23/23 16:40 Dose: 25 mg Lorazepam (Lorazepam 0.5 Mg Tablet) 0.5 mg PO BID PRN PRN Reason: anxiety/restlessness Magnesium Hydroxide (Milk Of Magnesia 30 Ml Oral.Susp) 30 ml PO DAILY PRN PRN Reason: Constipation Multi-Ingred Cream/Lotion/Oil/Oint (Mineral Oil/Petrolatum,White 106 Gm Tube) 1 appl TOPICAL BID PRN; Protocol PRN Reason: Dry Skin Last Admin: 09/29/23 10:23 Dose: 1 appl Multivitamins/Vitamin C (Multivitamin Tablet) 1 tab PO DAILY [facility] Last Admin: 09/29/23 09:06 Dose: 1 tab Nicotine Polacrilex (Nicotine Polacrilex Lozenge 2 Mg Lozenge) 2 mg BUCCAL Q2H PRN PRN Reason: Nicotine Cravings Thiamine HCl (Thiamine Hcl 100 Mg Tablet) 100 mg PO BID [facility] Last Admin: 09/29/23 09:06 Dose: 100 mg Trazodone HCl (Trazodone Hcl 50 Mg Tablet) 50 mg PO BEDTIME PRN PRN Reason: Insomnia Last Admin: 09/20/23 21:33 Dose: 50 mg Trazodone HCl (Trazodone Hcl 50 Mg Tablet) 50 mg PO BEDTIME [facility] Last Admin: 09/28/23 21:04 Dose: 50 mg Vitamin D (Cholecalciferol (Vitamin D3) 10 Mcg Tablet) 10 mcg PO DAILY [facility] Last Admin: 09/29/23 09:06 Dose: 10 mcg Allergies Allergies Allergy/AdvReac Type Severity Reaction Status Date / Time No Known Allergies Allergy Verified 08/24/23 13:03 Assessment & Plan Assessment & Plan (1) Recurrent major depression-severe: Status: Acute Code(s): F33.2 - Major depressive disorder, recurrent severe without psychotic features (2) Mild cognitive impairment: Status: Acute Code(s): G31.84 - Mild cognitive impairment of uncertain or unknown etiology Plan 09/11/23- Increase Lexapro to 15 mg daily. 09/21/22- Team reports [facility] has declined pt-continue applications Pt has facial rash-? from Eucerin, hydrocortisone, both or environmental reaction-monitor Pt's HCP will tell her that her dogs will need adoption as she cannot take them to a placement Pt engaged in milieu Continue to support, assist in grieving of losses. 09/23/23 Continue treatment. 09/24/23 Continue treatment 09/25/2023?continue?current?treatment?plan 09/27/2023: Continue current regimen and plans 09/28/23 HCP reports pt is appearing overmedicated -decrease lorazepam to 0.5 mg bid prn -decrease lexapro to 10 mg daily -decrease trazodone to 50 mg hs 09/29/23 Preparing for discharge. No changes today. Patient educated on: other Reason for continued inpatient stay Substantial Risk for: rapid decompensation Time Spent With Patient Time: Total time managing care of this patient today ____ minutes.
[2023-09-29 19:53] VITALS: BP 127/65; PULSE 70; RESP 18; TEMP 36.4; O2SAT 96
[2023-09-29] MEDS: ARIPiprazole 10 MG TABLET PO (20:05)
[2023-09-29] MEDS: Atorvastatin Calcium 10 MG TABLET PO (20:05)
[2023-09-29] MEDS: traZODone HCL 50 MG TABLET PO (20:06)
[2023-09-30 08:00] VITALS: BP 119/69; PULSE 70; RESP 16; TEMP 36.3; O2SAT 94
[2023-09-30] MEDS: Cholecalciferol (Vitamin D3) 10 MCG TABLET PO (08:56)
[2023-09-30] MEDS: Apixaban 5 MG TABLET PO ×2 (08:56→20:03)
[2023-09-30] MEDS: Mineral Oil/Petrolatum,White 106 GM Tube 1 APPL TOPICAL (08:56)
[2023-09-30] MEDS: Thiamine HCL 100 MG TABLET PO ×2 (08:57→20:03)
[2023-09-30] MEDS: Multivitamin TABLET 1 TAB PO (08:57)
[2023-09-30] MEDS: Escitalopram Oxalate 10 MG TABLET PO (08:57)
[2023-09-30] MEDS: Folic Acid 1 MG TABLET PO (08:57)
--- NOTE | 2023-09-30 12:59 | P.PNPSI_ITS ---
Subjective Subjective Date of Service: 09/30/23 Reason For Visit: SEC 12,RECENT SI ATTEMPT,CALM/COOP PER EMS Subjective Notes: Conditional Voluntary Healthcare Proxy: No Guardianship: No Medical Problems Affecting Mental Status: No Interim History: It is funny, in some way, things have come full [place] for me and I don't have any worries. I will have a good place to live-did you hear that they will accept me? Talked today about her acceptance to residential. Discussion with brother Calos-review of medications, history, concerns for her future. Medication Compliance: Yes Side effects from medications: No Attending Groups: Intermittent Review of Systems Acute medical concerns: No Medical Review of Systems: unchanged Review of Systems Review of Systems Yes all other systems are reviewed and are negative (pt denies today) Mental Status Exam Mental Status Exam Patient Appearance: Appropriate Patient Orientation: Person, Place, Time and Situation Level of Consciousness: Alert Patient Behavior: Talkative and Good Eye Contact Mood Description: Calm Affect Description: Calm Patient Cognition Impaired: Yes Ability to Follow Directions: Good Speech Pattern: Spontaneous Speech Memory Description: Remote Impaired Hallucinations: None Delusions: Not Present Thought Process: Distracted and Confusion Thought Content: positive for Circumstantial and positive for Suicidal Ideation (denies) Depressive Symptoms: Thoughts of /Suicide (denies) Judgement: Poor Diagnostics Vital Signs (24Hr): Vital Signs - 24 hr 09/29/23 19:53 09/30/23 08:00 Temperature 97.5 F 97.3 F Pulse Rate 70 70 Respiratory Rate 18 16 Blood Pressure 127/65 119/69 Pulse Oximetry 96 94 Oxygen Delivery Method Room Air Room Air BMI result Body Mass Index 26.7 Labs 09/29/23 08:35 09/29/23 08:35 Labs: Laboratory Results - last 48 hr 09/29/23 08:35 WBC 7.0 RBC 4.51 Hgb 13.5 Hct 43.0 MCV 95.3 MCH 29.9 MCHC 31.4 RDW 13.6 Plt Count 242 D MPV 10.2 Immature Gran % (Auto) 0.3 Neut % (Auto) 60.7 Lymph % (Auto) 26.3 [place] % (Auto) 6.0 Eos % (Auto) 5.6 H Baso % (Auto) 1.1 Lymph # (Auto) 1.8 [place] # (Auto) 0.4 Eos # (Auto) 0.4 Baso # (Auto) 0.1 Abs Immat Gran (auto) 0.02 Absolute Neuts (auto) 4.2 Absolute Nucleated RBC 0.000 Nucleated RBC % (auto) 0.0 Sodium 144 Potassium 4.6 Chloride 108 Carbon Dioxide 29 Anion Gap 12 BUN 20 H Creatinine 0.70 Estim Creat Clear Calc 73.4 Estimated GFR > 60 Random Glucose 83 Calcium 9.5 Total Bilirubin 0.4 AST 25 ALT 19 Alkaline Phosphatase 60 Total Protein 7.0 Albumin 3.7 Imaging Radiology Impressions: ITS Impressions Ankle X-Ray 09/17/23 14:38 IMPRESSION: Global demineralization. Advanced osteoarthritis left knee. Left ankle soft tissue swelling, question joint effusion. No acute bony pathology. Calcaneal spurring. Knee X-Ray 09/17/23 14:38 IMPRESSION: Global demineralization. Advanced osteoarthritis left knee. Left ankle soft tissue swelling, question joint effusion. No acute bony pathology. Calcaneal spurring. Medications Medications Current Medications Acetaminophen (Acetaminophen 325 Mg Tablet) 650 mg PO Q6H PRN PRN Reason: Headache/Pain Mild Scale (1-3) Last Admin: 09/22/23 23:16 Dose: 650 mg Al Hydroxide/Mg Hydroxide (Magnesium Hydrox/Alum Hydrox 30 Ml Oral.Susp) 30 ml PO Q6H PRN PRN Reason: Heartburn/Nausea Apixaban (Apixaban 5 Mg Tablet) 5 mg PO BID [facility] Last Admin: 09/30/23 08:56 Dose: 5 mg Aripiprazole (Aripiprazole 10 Mg Tablet) 10 mg PO BEDTIME [facility] Last Admin: 09/29/23 20:05 Dose: 10 mg Atorvastatin Calcium (Atorvastatin Calcium 10 Mg Tablet) 10 mg PO BEDTIME [facility] Last Admin: 09/29/23 20:05 Dose: 10 mg Capsaicin (Capsaicin 0.025% Cream 60 Gm Tube) 1 appl TOPICAL QID PRN; Protocol PRN Reason: knee pain Last Admin: 09/30/23 08:56 Dose: 1 appl Escitalopram Oxalate (Escitalopram Oxalate 10 Mg Tablet) 10 mg PO DAILY [facility] Last Admin: 09/30/23 08:57 Dose: 10 mg Folic Acid (Folic Acid 1 Mg Tablet) 1 mg PO DAILY [facility] Last Admin: 09/30/23 08:57 Dose: 1 mg Hydroxyzine HCl (Hydroxyzine Hcl 25 Mg Tablet) 25 mg PO Q6H PRN PRN Reason: Anxiety Last Admin: 09/23/23 16:40 Dose: 25 mg Lorazepam (Lorazepam 0.5 Mg Tablet) 0.5 mg PO BID PRN PRN Reason: anxiety/restlessness Magnesium Hydroxide (Milk Of Magnesia 30 Ml Oral.Susp) 30 ml PO DAILY PRN PRN Reason: Constipation Multi-Ingred Cream/Lotion/Oil/Oint (Mineral Oil/Petrolatum,White 106 Gm Tube) 1 appl TOPICAL BID PRN; Protocol PRN Reason: Dry Skin Last Admin: 09/30/23 08:56 Dose: 1 appl Multivitamins/Vitamin C (Multivitamin Tablet) 1 tab PO DAILY [facility] Last Admin: 09/30/23 08:57 Dose: 1 tab Nicotine Polacrilex (Nicotine Polacrilex Lozenge 2 Mg Lozenge) 2 mg BUCCAL Q2H PRN PRN Reason: Nicotine Cravings Thiamine HCl (Thiamine Hcl 100 Mg Tablet) 100 mg PO BID [facility] Last Admin: 09/30/23 08:57 Dose: 100 mg Trazodone HCl (Trazodone Hcl 50 Mg Tablet) 50 mg PO BEDTIME PRN PRN Reason: Insomnia Last Admin: 09/20/23 21:33 Dose: 50 mg Trazodone HCl (Trazodone Hcl 50 Mg Tablet) 50 mg PO BEDTIME [facility] Last Admin: 09/29/23 20:06 Dose: 50 mg Vitamin D (Cholecalciferol (Vitamin D3) 10 Mcg Tablet) 10 mcg PO DAILY [facility] Last Admin: 09/30/23 08:56 Dose: 10 mcg Allergies Allergies Allergy/AdvReac Type Severity Reaction Status Date / Time No Known Allergies Allergy Verified 08/24/23 13:03 Assessment & Plan Assessment & Plan (1) Recurrent major depression-severe: Status: Acute Code(s): F33.2 - Major depressive disorder, recurrent severe without psychotic features (2) Mild cognitive impairment: Status: Acute Code(s): G31.84 - Mild cognitive impairment of uncertain or unknown etiology Plan 09/11/23- Increase Lexapro to 15 mg daily. 09/21/22- Team reports [facility] has declined pt-continue applications Pt has facial rash-? from Eucerin, hydrocortisone, both or environmental reaction-monitor Pt's HCP will tell her that her dogs will need adoption as she cannot take them to a placement Pt engaged in milieu Continue to support, assist in grieving of losses. 09/23/23 Continue treatment. 09/24/23 Continue treatment 09/25/2023?continue?current?treatment?plan 09/27/2023: Continue current regimen and plans 09/28/23 HCP reports pt is appearing overmedicated -decrease lorazepam to 0.5 mg bid prn -decrease lexapro to 10 mg daily -decrease trazodone to 50 mg hs 09/30/23 tentative discharge to residential care 10/05/23. Guardian/Caregiver educated on: medication risk/benefits, substance abuse and therapeutic strategies Reason for continued inpatient stay Substantial Risk for: rapid decompensation Time Spent With Patient Time: Total time managing care of this patient today ____ minutes.
[2023-09-30 19:45] VITALS: BP 117/64; PULSE 72; RESP 16; TEMP 36.3; O2SAT 95
[2023-09-30] MEDS: Atorvastatin Calcium 10 MG TABLET PO (20:02)
[2023-09-30] MEDS: traZODone HCL 50 MG TABLET PO (20:02)
[2023-09-30] MEDS: ARIPiprazole 10 MG TABLET PO (20:03)
[2023-10-01 07:00] VITALS: BMI 26.1
[2023-10-01 08:05] VITALS: BP 121/71; PULSE 61; RESP 16; TEMP 36.3; O2SAT 95
[2023-10-01] MEDS: Thiamine HCL 100 MG TABLET PO ×2 (08:54→21:12)
[2023-10-01] MEDS: Folic Acid 1 MG TABLET PO (08:54)
[2023-10-01] MEDS: Multivitamin TABLET 1 TAB PO (08:54)
[2023-10-01] MEDS: Cholecalciferol (Vitamin D3) 10 MCG TABLET PO (08:54)
[2023-10-01] MEDS: Escitalopram Oxalate 10 MG TABLET PO (08:54)
[2023-10-01] MEDS: Apixaban 5 MG TABLET PO ×2 (08:54→21:11)
--- NOTE | 2023-10-01 09:46 | P.PNPSI_ITS ---
Subjective Subjective Date of Service: 10/01/23 Reason For Visit: SEC 12,RECENT SI ATTEMPT,CALM/COOP PER EMS Interim History: met with pt; discussed with team good mood, appropriate w/ peers and staff; pleasant and friendly; remains stable, awaiting dispo; denies any complaints and has no requests. Mental Status Exam Mental Status Exam Patient Appearance: Appropriate Patient Orientation: Person, Place, Time and Situation Level of Consciousness: Alert Patient Behavior: Talkative and Good Eye Contact Mood Description: Calm Affect Description: Calm Patient Cognition Impaired: Yes Ability to Follow Directions: Good Speech Pattern: Spontaneous Speech Memory Description: Remote Impaired Hallucinations: None Delusions: Not Present Thought Process: Distracted and Confusion Thought Content: positive for Circumstantial and positive for Suicidal Ideation (denies) Depressive Symptoms: Thoughts of /Suicide (denies) Judgement: Poor Diagnostics Vital Signs (24Hr): Vital Signs - 24 hr 09/30/23 19:45 10/01/23 08:05 Temperature 97.4 F 97.3 F Pulse Rate 72 61 Respiratory Rate 16 16 Blood Pressure 117/64 121/71 Pulse Oximetry 95 95 Oxygen Delivery Method Room Air Room Air BMI result Body Mass Index 26.7 Labs 09/29/23 08:35 09/29/23 08:35 Imaging Radiology Impressions: ITS Impressions Ankle X-Ray 09/17/23 14:38 IMPRESSION: Global demineralization. Advanced osteoarthritis left knee. Left ankle soft tissue swelling, question joint effusion. No acute bony pathology. Calcaneal spurring. Knee X-Ray 09/17/23 14:38 IMPRESSION: Global demineralization. Advanced osteoarthritis left knee. Left ankle soft tissue swelling, question joint effusion. No acute bony pathology. Calcaneal spurring. Medications Medications Current Medications Acetaminophen (Acetaminophen 325 Mg Tablet) 650 mg PO Q6H PRN PRN Reason: Headache/Pain Mild Scale (1-3) Last Admin: 09/22/23 23:16 Dose: 650 mg Al Hydroxide/Mg Hydroxide (Magnesium Hydrox/Alum Hydrox 30 Ml Oral.Susp) 30 ml PO Q6H PRN PRN Reason: Heartburn/Nausea Apixaban (Apixaban 5 Mg Tablet) 5 mg PO BID [facility] Last Admin: 10/01/23 08:54 Dose: 5 mg Aripiprazole (Aripiprazole 10 Mg Tablet) 10 mg PO BEDTIME [facility] Last Admin: 09/30/23 20:03 Dose: 10 mg Atorvastatin Calcium (Atorvastatin Calcium 10 Mg Tablet) 10 mg PO BEDTIME [facility] Last Admin: 09/30/23 20:02 Dose: 10 mg Capsaicin (Capsaicin 0.025% Cream 60 Gm Tube) 1 appl TOPICAL QID PRN; Protocol PRN Reason: knee pain Last Admin: 09/30/23 08:56 Dose: 1 appl Escitalopram Oxalate (Escitalopram Oxalate 10 Mg Tablet) 10 mg PO DAILY [facility] Last Admin: 10/01/23 08:54 Dose: 10 mg Folic Acid (Folic Acid 1 Mg Tablet) 1 mg PO DAILY [facility] Last Admin: 10/01/23 08:54 Dose: 1 mg Hydroxyzine HCl (Hydroxyzine Hcl 25 Mg Tablet) 25 mg PO Q6H PRN PRN Reason: Anxiety Last Admin: 09/23/23 16:40 Dose: 25 mg Lorazepam (Lorazepam 0.5 Mg Tablet) 0.5 mg PO BID PRN PRN Reason: anxiety/restlessness Magnesium Hydroxide (Milk Of Magnesia 30 Ml Oral.Susp) 30 ml PO DAILY PRN PRN Reason: Constipation Multi-Ingred Cream/Lotion/Oil/Oint (Mineral Oil/Petrolatum,White 106 Gm Tube) 1 appl TOPICAL BID PRN; Protocol PRN Reason: Dry Skin Last Admin: 09/30/23 08:56 Dose: 1 appl Multivitamins/Vitamin C (Multivitamin Tablet) 1 tab PO DAILY [facility] Last Admin: 10/01/23 08:54 Dose: 1 tab Nicotine Polacrilex (Nicotine Polacrilex Lozenge 2 Mg Lozenge) 2 mg BUCCAL Q2H PRN PRN Reason: Nicotine Cravings Thiamine HCl (Thiamine Hcl 100 Mg Tablet) 100 mg PO BID [facility] Last Admin: 10/01/23 08:54 Dose: 100 mg Trazodone HCl (Trazodone Hcl 50 Mg Tablet) 50 mg PO BEDTIME PRN PRN Reason: Insomnia Last Admin: 09/20/23 21:33 Dose: 50 mg Trazodone HCl (Trazodone Hcl 50 Mg Tablet) 50 mg PO BEDTIME [facility] Last Admin: 09/30/23 20:02 Dose: 50 mg Vitamin D (Cholecalciferol (Vitamin D3) 10 Mcg Tablet) 10 mcg PO DAILY [facility] Last Admin: 10/01/23 08:54 Dose: 10 mcg Allergies Allergies Allergy/AdvReac Type Severity Reaction Status Date / Time No Known Allergies Allergy Verified 08/24/23 13:03 Assessment & Plan Assessment & Plan (1) Recurrent major depression-severe: Status: Acute Code(s): F33.2 - Major depressive disorder, recurrent severe without psychotic features (2) Mild cognitive impairment: Status: Acute Code(s): G31.84 - Mild cognitive impairment of uncertain or unknown etiology Plan 09/11/23- Increase Lexapro to 15 mg daily. 09/21/22- Team reports [facility] has declined pt-continue applications Pt has facial rash-? from Eucerin, hydrocortisone, both or environmental reaction-monitor Pt's HCP will tell her that her dogs will need adoption as she cannot take them to a placement Pt engaged in milieu Continue to support, assist in grieving of losses. 09/23/23 Continue treatment. 09/24/23 Continue treatment 09/25/2023?continue?current?treatment?plan 09/27/2023: Continue current regimen and plans 09/28/23 HCP reports pt is appearing overmedicated -decrease lorazepam to 0.5 mg bid prn -decrease lexapro to 10 mg daily -decrease trazodone to 50 mg hs 09/30/23 tentative discharge to residential care 10/05/23. 10/01 continue tx plan and dispo planning Patient educated on: diagnosis Informed Consent: understands Reason for continued inpatient stay Substantial Risk for: stable for discharge Time Spent With Patient Time: Total time managing care of this patient today ____ minutes.
[2023-10-01 16:20] VITALS: BP 117/71; PULSE 83; RESP 16; TEMP 36.8; O2SAT 93
[2023-10-01] MEDS: LORazepam 0.5 MG TABLET PO (21:11)
[2023-10-01] MEDS: traZODone HCL 50 MG TABLET PO (21:11)
[2023-10-01] MEDS: Atorvastatin Calcium 10 MG TABLET PO (21:11)
[2023-10-01] MEDS: ARIPiprazole 10 MG TABLET PO (21:12)
[2023-10-02 07:28] VITALS: BP 147/66; PULSE 61; RESP 16; TEMP 36.4; O2SAT 97
[2023-10-02] MEDS: Apixaban 5 MG TABLET PO ×2 (08:42→20:52)
[2023-10-02] MEDS: Folic Acid 1 MG TABLET PO (08:42)
[2023-10-02] MEDS: Multivitamin TABLET 1 TAB PO (08:42)
[2023-10-02] MEDS: Cholecalciferol (Vitamin D3) 10 MCG TABLET PO (08:42)
[2023-10-02] MEDS: Escitalopram Oxalate 10 MG TABLET PO (08:42)
[2023-10-02] MEDS: Thiamine HCL 100 MG TABLET PO ×2 (08:42→20:52)
--- NOTE | 2023-10-02 09:49 | HO.PSYCHPN ---
Subjective Subjective Date of Service: 10/02/23 Reason For Visit: SEC 12,RECENT SI ATTEMPT,CALM/COOP PER EMS Interim History: met with patient; discussed with team Patient remains pleasant, good mood, good behavioral control, no complaints, no requests, very happy to hear that she will be discharging Thursday Mental Status Exam Mental Status Exam Patient Appearance: Appropriate Patient Orientation: Person, Place, Time and Situation Level of Consciousness: Alert Patient Behavior: Talkative and Good Eye Contact Mood Description: Calm Affect Description: Calm Patient Cognition Impaired: Yes Ability to Follow Directions: Good Speech Pattern: Spontaneous Speech Memory Description: Remote Impaired Hallucinations: None Delusions: Not Present Thought Process: Distracted and Confusion Thought Content: positive for Circumstantial and positive for Suicidal Ideation (denies) Depressive Symptoms: Thoughts of /Suicide (denies) Judgement: Poor Diagnostics Vital Signs (24Hr): Vital Signs - 24 hr 10/01/23 16:20 Temperature 98.2 F Pulse Rate 83 Respiratory Rate 16 Blood Pressure 117/71 Pulse Oximetry 93 Oxygen Delivery Method Room Air BMI result Body Mass Index 26.1 Labs 09/29/23 08:35 09/29/23 08:35 Imaging Radiology Impressions: ITS Impressions Ankle X-Ray 09/17/23 14:38 IMPRESSION: Global demineralization. Advanced osteoarthritis left knee. Left ankle soft tissue swelling, question joint effusion. No acute bony pathology. Calcaneal spurring. Knee X-Ray 09/17/23 14:38 IMPRESSION: Global demineralization. Advanced osteoarthritis left knee. Left ankle soft tissue swelling, question joint effusion. No acute bony pathology. Calcaneal spurring. Medications Medications Current Medications Acetaminophen (Acetaminophen 325 Mg Tablet) 650 mg PO Q6H PRN PRN Reason: Headache/Pain Mild Scale (1-3) Last Admin: 09/22/23 23:16 Dose: 650 mg Al Hydroxide/Mg Hydroxide (Magnesium Hydrox/Alum Hydrox 30 Ml Oral.Susp) 30 ml PO Q6H PRN PRN Reason: Heartburn/Nausea Apixaban (Apixaban 5 Mg Tablet) 5 mg PO BID [facility] Last Admin: 10/02/23 08:42 Dose: 5 mg Aripiprazole (Aripiprazole 10 Mg Tablet) 10 mg PO BEDTIME [facility] Last Admin: 10/01/23 21:12 Dose: 10 mg Atorvastatin Calcium (Atorvastatin Calcium 10 Mg Tablet) 10 mg PO BEDTIME [facility] Last Admin: 10/01/23 21:11 Dose: 10 mg Capsaicin (Capsaicin 0.025% Cream 60 Gm Tube) 1 appl TOPICAL QID PRN; Protocol PRN Reason: knee pain Last Admin: 09/30/23 08:56 Dose: 1 appl Escitalopram Oxalate (Escitalopram Oxalate 10 Mg Tablet) 10 mg PO DAILY [facility] Last Admin: 10/02/23 08:42 Dose: 10 mg Folic Acid (Folic Acid 1 Mg Tablet) 1 mg PO DAILY [facility] Last Admin: 10/02/23 08:42 Dose: 1 mg Hydroxyzine HCl (Hydroxyzine Hcl 25 Mg Tablet) 25 mg PO Q6H PRN PRN Reason: Anxiety Last Admin: 09/23/23 16:40 Dose: 25 mg Lorazepam (Lorazepam 0.5 Mg Tablet) 0.5 mg PO BID PRN PRN Reason: anxiety/restlessness Last Admin: 10/01/23 21:11 Dose: 0.5 mg Magnesium Hydroxide (Milk Of Magnesia 30 Ml Oral.Susp) 30 ml PO DAILY PRN PRN Reason: Constipation Multi-Ingred Cream/Lotion/Oil/Oint (Mineral Oil/Petrolatum,White 106 Gm Tube) 1 appl TOPICAL BID PRN; Protocol PRN Reason: Dry Skin Last Admin: 09/30/23 08:56 Dose: 1 appl Multivitamins/Vitamin C (Multivitamin Tablet) 1 tab PO DAILY [facility] Last Admin: 10/02/23 08:42 Dose: 1 tab Nicotine Polacrilex (Nicotine Polacrilex Lozenge 2 Mg Lozenge) 2 mg BUCCAL Q2H PRN PRN Reason: Nicotine Cravings Thiamine HCl (Thiamine Hcl 100 Mg Tablet) 100 mg PO BID [facility] Last Admin: 10/02/23 08:42 Dose: 100 mg Trazodone HCl (Trazodone Hcl 50 Mg Tablet) 50 mg PO BEDTIME PRN PRN Reason: Insomnia Last Admin: 09/20/23 21:33 Dose: 50 mg Trazodone HCl (Trazodone Hcl 50 Mg Tablet) 50 mg PO BEDTIME [facility] Last Admin: 10/01/23 21:11 Dose: 50 mg Vitamin D (Cholecalciferol (Vitamin D3) 10 Mcg Tablet) 10 mcg PO DAILY [facility] Last Admin: 10/02/23 08:42 Dose: 10 mcg Allergies Allergies Allergy/AdvReac Type Severity Reaction Status Date / Time No Known Allergies Allergy Verified 08/24/23 13:03 Assessment & Plan Assessment & Plan (1) Recurrent major depression-severe: Status: Acute Code(s): F33.2 - Major depressive disorder, recurrent severe without psychotic features (2) Mild cognitive impairment: Status: Acute Code(s): G31.84 - Mild cognitive impairment of uncertain or unknown etiology Plan 09/11/23- Increase Lexapro to 15 mg daily. 09/21/22- Team reports [facility] has declined pt-continue applications Pt has facial rash-? from Eucerin, hydrocortisone, both or environmental reaction-monitor Pt's HCP will tell her that her dogs will need adoption as she cannot take them to a placement Pt engaged in milieu Continue to support, assist in grieving of losses. 09/23/23 Continue treatment. 09/24/23 Continue treatment 09/25/2023?continue?current?treatment?plan 09/27/2023: Continue current regimen and plans 09/28/23 HCP reports pt is appearing overmedicated -decrease lorazepam to 0.5 mg bid prn -decrease lexapro to 10 mg daily -decrease trazodone to 50 mg hs 09/30/23 tentative discharge to residential care 10/05/23. 10/01 continue tx plan and dispo planning 10/02 continue treatment plan; plan is for discharge Thursday assisted living facility Patient educated on: diagnosis Informed Consent: understands Reason for continued inpatient stay Substantial Risk for: stable for discharge Time Spent With Patient Time: Total time managing care of this patient today ____ minutes.
[2023-10-02 18:00] VITALS: BP 132/90; PULSE 69; RESP 18; TEMP 36.7; O2SAT 95
[2023-10-02] MEDS: ARIPiprazole 10 MG TABLET PO (20:52)
[2023-10-02] MEDS: traZODone HCL 50 MG TABLET PO (20:52)
[2023-10-02] MEDS: Atorvastatin Calcium 10 MG TABLET PO (20:52)
[2023-10-03 08:10] VITALS: BP 119/66; PULSE 68; RESP 16; TEMP 36.3; O2SAT 96
[2023-10-03] MEDS: Multivitamin TABLET 1 TAB PO (08:26)
[2023-10-03] MEDS: Folic Acid 1 MG TABLET PO (08:26)
[2023-10-03] MEDS: Thiamine HCL 100 MG TABLET PO ×2 (08:26→21:09)
[2023-10-03] MEDS: Apixaban 5 MG TABLET PO ×2 (08:26→21:09)
[2023-10-03] MEDS: Cholecalciferol (Vitamin D3) 10 MCG TABLET PO (08:27)
[2023-10-03] MEDS: Escitalopram Oxalate 10 MG TABLET PO (08:27)
--- NOTE | 2023-10-03 10:11 | HO.PSYCHPN ---
Subjective Subjective Date of Service: 10/03/23 Reason For Visit: SEC 12,RECENT SI ATTEMPT,CALM/COOP PER EMS Interim History: met With patient; discussed with team Good mood, pleasant, thankful, expressing how well she felt treated on the unit; looking forward to discharge. No complaints and no requests Mental Status Exam Mental Status Exam Patient Appearance: Appropriate Patient Orientation: Person, Place, Time and Situation Level of Consciousness: Alert Patient Behavior: Talkative and Good Eye Contact Mood Description: Calm Affect Description: Calm Patient Cognition Impaired: Yes Ability to Follow Directions: Good Speech Pattern: Spontaneous Speech Memory Description: Remote Impaired Hallucinations: None Delusions: Not Present Thought Process: Distracted and Confusion Thought Content: positive for Circumstantial and positive for Suicidal Ideation (denies) Depressive Symptoms: Thoughts of /Suicide (denies) Judgement: Poor Diagnostics Vital Signs (24Hr): Vital Signs - 24 hr 10/02/23 18:00 10/03/23 08:10 Temperature 98.1 F 97.3 F Pulse Rate 69 68 Respiratory Rate 18 16 Blood Pressure 132/90 H 119/66 Pulse Oximetry 95 96 Oxygen Delivery Method Room Air Room Air BMI result Body Mass Index 26.1 Labs 09/29/23 08:35 09/29/23 08:35 Imaging Radiology Impressions: ITS Impressions Ankle X-Ray 09/17/23 14:38 IMPRESSION: Global demineralization. Advanced osteoarthritis left knee. Left ankle soft tissue swelling, question joint effusion. No acute bony pathology. Calcaneal spurring. Knee X-Ray 09/17/23 14:38 IMPRESSION: Global demineralization. Advanced osteoarthritis left knee. Left ankle soft tissue swelling, question joint effusion. No acute bony pathology. Calcaneal spurring. Medications Medications Current Medications Acetaminophen (Acetaminophen 325 Mg Tablet) 650 mg PO Q6H PRN PRN Reason: Headache/Pain Mild Scale (1-3) Last Admin: 09/22/23 23:16 Dose: 650 mg Al Hydroxide/Mg Hydroxide (Magnesium Hydrox/Alum Hydrox 30 Ml Oral.Susp) 30 ml PO Q6H PRN PRN Reason: Heartburn/Nausea Apixaban (Apixaban 5 Mg Tablet) 5 mg PO BID [facility] Last Admin: 10/03/23 08:26 Dose: 5 mg Aripiprazole (Aripiprazole 10 Mg Tablet) 10 mg PO BEDTIME [facility] Last Admin: 10/02/23 20:52 Dose: 10 mg Atorvastatin Calcium (Atorvastatin Calcium 10 Mg Tablet) 10 mg PO BEDTIME [facility] Last Admin: 10/02/23 20:52 Dose: 10 mg Capsaicin (Capsaicin 0.025% Cream 60 Gm Tube) 1 appl TOPICAL QID PRN; Protocol PRN Reason: knee pain Last Admin: 09/30/23 08:56 Dose: 1 appl Escitalopram Oxalate (Escitalopram Oxalate 10 Mg Tablet) 10 mg PO DAILY [facility] Last Admin: 10/03/23 08:27 Dose: 10 mg Folic Acid (Folic Acid 1 Mg Tablet) 1 mg PO DAILY [facility] Last Admin: 10/03/23 08:26 Dose: 1 mg Hydroxyzine HCl (Hydroxyzine Hcl 25 Mg Tablet) 25 mg PO Q6H PRN PRN Reason: Anxiety Last Admin: 09/23/23 16:40 Dose: 25 mg Lorazepam (Lorazepam 0.5 Mg Tablet) 0.5 mg PO BID PRN PRN Reason: anxiety/restlessness Last Admin: 10/01/23 21:11 Dose: 0.5 mg Magnesium Hydroxide (Milk Of Magnesia 30 Ml Oral.Susp) 30 ml PO DAILY PRN PRN Reason: Constipation Multi-Ingred Cream/Lotion/Oil/Oint (Mineral Oil/Petrolatum,White 106 Gm Tube) 1 appl TOPICAL BID PRN; Protocol PRN Reason: Dry Skin Last Admin: 09/30/23 08:56 Dose: 1 appl Multivitamins/Vitamin C (Multivitamin Tablet) 1 tab PO DAILY [facility] Last Admin: 10/03/23 08:26 Dose: 1 tab Nicotine Polacrilex (Nicotine Polacrilex Lozenge 2 Mg Lozenge) 2 mg BUCCAL Q2H PRN PRN Reason: Nicotine Cravings Thiamine HCl (Thiamine Hcl 100 Mg Tablet) 100 mg PO BID [facility] Last Admin: 10/03/23 08:26 Dose: 100 mg Trazodone HCl (Trazodone Hcl 50 Mg Tablet) 50 mg PO BEDTIME PRN PRN Reason: Insomnia Last Admin: 09/20/23 21:33 Dose: 50 mg Trazodone HCl (Trazodone Hcl 50 Mg Tablet) 50 mg PO BEDTIME [facility] Last Admin: 10/02/23 20:52 Dose: 50 mg Vitamin D (Cholecalciferol (Vitamin D3) 10 Mcg Tablet) 10 mcg PO DAILY [facility] Last Admin: 10/03/23 08:27 Dose: 10 mcg Allergies Allergies Allergy/AdvReac Type Severity Reaction Status Date / Time No Known Allergies Allergy Verified 08/24/23 13:03 Assessment & Plan Assessment & Plan (1) Recurrent major depression-severe: Status: Acute Code(s): F33.2 - Major depressive disorder, recurrent severe without psychotic features (2) Mild cognitive impairment: Status: Acute Code(s): G31.84 - Mild cognitive impairment of uncertain or unknown etiology Plan 09/11/23- Increase Lexapro to 15 mg daily. 09/21/22- Team reports [facility] has declined pt-continue applications Pt has facial rash-? from Eucerin, hydrocortisone, both or environmental reaction-monitor Pt's HCP will tell her that her dogs will need adoption as she cannot take them to a placement Pt engaged in milieu Continue to support, assist in grieving of losses. 09/23/23 Continue treatment. 09/24/23 Continue treatment 09/25/2023?continue?current?treatment?plan 09/27/2023: Continue current regimen and plans 09/28/23 HCP reports pt is appearing overmedicated -decrease lorazepam to 0.5 mg bid prn -decrease lexapro to 10 mg daily -decrease trazodone to 50 mg hs 09/30/23 tentative discharge to residential care 10/05/23. 10/01 continue tx plan and dispo planning 10/02 continue treatment plan; plan is for discharge Thursday assisted living facility 10/03 continue treatment plan plan is for discharge Thursday assisted living facility Patient educated on: diagnosis Informed Consent: understands Reason for continued inpatient stay Substantial Risk for: stable for discharge Time Spent With Patient Time: Total time managing care of this patient today ____ minutes.
[2023-10-03 16:08] VITALS: BP 117/69; PULSE 89; RESP 16; TEMP 36.1; O2SAT 94
[2023-10-03] MEDS: ARIPiprazole 10 MG TABLET PO (21:09)
[2023-10-03] MEDS: traZODone HCL 50 MG TABLET PO ×2 (21:09)
[2023-10-03] MEDS: Atorvastatin Calcium 10 MG TABLET PO (21:09)
[2023-10-03] MEDS: LORazepam 0.5 MG TABLET PO (21:09)
[2023-10-03] MEDS: Acetaminophen 325 MG TABLET 650 MG PO (22:39)
[2023-10-04] MEDS: Escitalopram Oxalate 10 MG TABLET PO (08:11)
[2023-10-04] MEDS: Cholecalciferol (Vitamin D3) 10 MCG TABLET PO (08:11)
[2023-10-04] MEDS: Multivitamin TABLET 1 TAB PO (08:11)
[2023-10-04] MEDS: Thiamine HCL 100 MG TABLET PO ×2 (08:11→20:15)
[2023-10-04] MEDS: Folic Acid 1 MG TABLET PO (08:11)
[2023-10-04 08:12] VITALS: BP 121/70; PULSE 76; RESP 16; TEMP 36.4; O2SAT 95
[2023-10-04] MEDS: Apixaban 5 MG TABLET PO ×2 (08:12→20:15)
--- NOTE | 2023-10-04 15:36 | HO.PSYCHPN ---
Subjective Subjective Date of Service: 10/04/23 Reason For Visit: SEC 12,RECENT SI ATTEMPT,CALM/COOP PER EMS Interim History: Met with patient; discussed with team No change in presentation, calm, pleasant, thankful. No requests, no complaints Mental Status Exam Mental Status Exam Patient Appearance: Appropriate Patient Orientation: Person, Place, Time and Situation Level of Consciousness: Alert Patient Behavior: Talkative and Good Eye Contact Mood Description: Calm Affect Description: Calm Patient Cognition Impaired: Yes Ability to Follow Directions: Good Speech Pattern: Spontaneous Speech Memory Description: Remote Impaired Hallucinations: None Delusions: Not Present Thought Process: Distracted and Confusion Thought Content: positive for Circumstantial and positive for Suicidal Ideation (denies) Depressive Symptoms: Thoughts of /Suicide (denies) Judgement: Poor Diagnostics Vital Signs (24Hr): Vital Signs - 24 hr 10/03/23 16:08 10/04/23 08:12 Temperature 97.0 F 97.5 F Pulse Rate 89 76 Respiratory Rate 16 16 Blood Pressure 117/69 121/70 Pulse Oximetry 94 95 Oxygen Delivery Method Room Air Room Air BMI result Body Mass Index 26.1 Labs 09/29/23 08:35 09/29/23 08:35 Imaging Radiology Impressions: ITS Impressions Ankle X-Ray 09/17/23 14:38 IMPRESSION: Global demineralization. Advanced osteoarthritis left knee. Left ankle soft tissue swelling, question joint effusion. No acute bony pathology. Calcaneal spurring. Knee X-Ray 09/17/23 14:38 IMPRESSION: Global demineralization. Advanced osteoarthritis left knee. Left ankle soft tissue swelling, question joint effusion. No acute bony pathology. Calcaneal spurring. Medications Medications Current Medications Acetaminophen (Acetaminophen 325 Mg Tablet) 650 mg PO Q6H PRN PRN Reason: Headache/Pain Mild Scale (1-3) Last Admin: 10/03/23 22:39 Dose: 650 mg Al Hydroxide/Mg Hydroxide (Magnesium Hydrox/Alum Hydrox 30 Ml Oral.Susp) 30 ml PO Q6H PRN PRN Reason: Heartburn/Nausea Apixaban (Apixaban 5 Mg Tablet) 5 mg PO BID [facility] Last Admin: 10/04/23 08:12 Dose: 5 mg Aripiprazole (Aripiprazole 10 Mg Tablet) 10 mg PO BEDTIME [facility] Last Admin: 10/03/23 21:09 Dose: 10 mg Atorvastatin Calcium (Atorvastatin Calcium 10 Mg Tablet) 10 mg PO BEDTIME [facility] Last Admin: 10/03/23 21:09 Dose: 10 mg Capsaicin (Capsaicin 0.025% Cream 60 Gm Tube) 1 appl TOPICAL QID PRN; Protocol PRN Reason: knee pain Last Admin: 09/30/23 08:56 Dose: 1 appl Escitalopram Oxalate (Escitalopram Oxalate 10 Mg Tablet) 10 mg PO DAILY [facility] Last Admin: 10/04/23 08:11 Dose: 10 mg Folic Acid (Folic Acid 1 Mg Tablet) 1 mg PO DAILY [facility] Last Admin: 10/04/23 08:11 Dose: 1 mg Hydroxyzine HCl (Hydroxyzine Hcl 25 Mg Tablet) 25 mg PO Q6H PRN PRN Reason: Anxiety Last Admin: 09/23/23 16:40 Dose: 25 mg Lorazepam (Lorazepam 0.5 Mg Tablet) 0.5 mg PO BID PRN PRN Reason: anxiety/restlessness Last Admin: 10/03/23 21:09 Dose: 0.5 mg Magnesium Hydroxide (Milk Of Magnesia 30 Ml Oral.Susp) 30 ml PO DAILY PRN PRN Reason: Constipation Multi-Ingred Cream/Lotion/Oil/Oint (Mineral Oil/Petrolatum,White 106 Gm Tube) 1 appl TOPICAL BID PRN; Protocol PRN Reason: Dry Skin Last Admin: 09/30/23 08:56 Dose: 1 appl Multivitamins/Vitamin C (Multivitamin Tablet) 1 tab PO DAILY [facility] Last Admin: 10/04/23 08:11 Dose: 1 tab Nicotine Polacrilex (Nicotine Polacrilex Lozenge 2 Mg Lozenge) 2 mg BUCCAL Q2H PRN PRN Reason: Nicotine Cravings Thiamine HCl (Thiamine Hcl 100 Mg Tablet) 100 mg PO BID [facility] Last Admin: 10/04/23 08:11 Dose: 100 mg Trazodone HCl (Trazodone Hcl 50 Mg Tablet) 50 mg PO BEDTIME PRN PRN Reason: Insomnia Last Admin: 10/03/23 21:09 Dose: 50 mg Trazodone HCl (Trazodone Hcl 50 Mg Tablet) 50 mg PO BEDTIME [facility] Last Admin: 10/03/23 21:09 Dose: 50 mg Vitamin D (Cholecalciferol (Vitamin D3) 10 Mcg Tablet) 10 mcg PO DAILY [facility] Last Admin: 10/04/23 08:11 Dose: 10 mcg Allergies Allergies Allergy/AdvReac Type Severity Reaction Status Date / Time No Known Allergies Allergy Verified 08/24/23 13:03 Assessment & Plan Assessment & Plan (1) Recurrent major depression-severe: Status: Acute Code(s): F33.2 - Major depressive disorder, recurrent severe without psychotic features (2) Mild cognitive impairment: Status: Acute Code(s): G31.84 - Mild cognitive impairment of uncertain or unknown etiology Plan 09/11/23- Increase Lexapro to 15 mg daily. 09/21/22- Team reports [facility] has declined pt-continue applications Pt has facial rash-? from Eucerin, hydrocortisone, both or environmental reaction-monitor Pt's HCP will tell her that her dogs will need adoption as she cannot take them to a placement Pt engaged in milieu Continue to support, assist in grieving of losses. 09/23/23 Continue treatment. 09/24/23 Continue treatment 09/25/2023?continue?current?treatment?plan 09/27/2023: Continue current regimen and plans 09/28/23 HCP reports pt is appearing overmedicated -decrease lorazepam to 0.5 mg bid prn -decrease lexapro to 10 mg daily -decrease trazodone to 50 mg hs 09/30/23 tentative discharge to residential care 10/05/23. 10/01 continue tx plan and dispo planning 10/02 continue treatment plan; plan is for discharge Thursday assisted living facility 10/03 continue treatment plan 10/04 continue treatment plan plan is for discharge Thursday assisted living facility Patient educated on: diagnosis Informed Consent: understands Reason for continued inpatient stay Substantial Risk for: stable for discharge Time Spent With Patient Time: Total time managing care of this patient today ____ minutes.
[2023-10-04 19:30] VITALS: BP 125/65; PULSE 75; RESP 18; TEMP 36.1; O2SAT 94
[2023-10-04] MEDS: traZODone HCL 50 MG TABLET PO (20:15)
[2023-10-04] MEDS: ARIPiprazole 10 MG TABLET PO (20:15)
[2023-10-04] MEDS: Atorvastatin Calcium 10 MG TABLET PO (20:15)
[2023-10-05 08:02] VITALS: BP 132/97; PULSE 88; RESP 16; TEMP 36.1; O2SAT 98
[2023-10-05] MEDS: Apixaban 5 MG TABLET PO (08:05)
[2023-10-05] MEDS: Thiamine HCL 100 MG TABLET PO (08:05)
[2023-10-05] MEDS: Escitalopram Oxalate 10 MG TABLET PO (08:05)
[2023-10-05] MEDS: Cholecalciferol (Vitamin D3) 10 MCG TABLET PO (08:05)
[2023-10-05] MEDS: Multivitamin TABLET 1 TAB PO (08:05)
[2023-10-05] MEDS: Folic Acid 1 MG TABLET PO (08:05)
--- NOTE | 2023-10-05 10:19 | PM.PSYDC ---
DS: Providers Provider Date of Service: 10/05/23 Date of admission: 08/25/23 08:42 Date of discharge: 10/05/23 Primary care physician: Nonstaff Physician Admitting clinician: Gris Guzman Attending physician on admission: Jack Singh Consults: 09/22/23 16:25 Consult to Hospitalist Routine Comment: Increase redness, warmth bilateral buccal, mentum Consulting Provider: Hospitalist Reason For Exam: Facial Rash, ?response to eucerin,hydrocortisone Attending physician on discharge: Jack Singh Discharging clinician: Gris Guzman DS: Diagnosis Discharge Diagnosis (1) Recurrent major depression-severe: Status: Acute (2) Mild cognitive impairment: Status: Acute DS: Medications Discharge Medications Home Medications: Previous Rx's Medication Instructions Recorded acetaminophen 325 mg tablet 650 mg (2 x 325 mg) PO Q6H PRN 10/04/23 Headache/Pain Mild Scale (1-3) #60 tabs apixaban 5 mg tablet (Eliquis) 5 mg PO BID #60 tabs 10/04/23 aripiprazole 10 mg tablet 10 mg PO QPM #30 tabs 10/04/23 atorvastatin 10 mg tablet 10 mg PO BEDTIME #30 tabs 10/04/23 capsaicin 0.025 % topical cream 1 appl topical QID PRN knee pain 10/04/23 #120 grams cholecalciferol (vitamin D3) 10 10 mcg PO DAILY #30 tabs 10/04/23 mcg (400 unit) tablet (Vitamin D3) escitalopram oxalate 10 mg tablet 10 mg PO DAILY depressive disorder 10/04/23 #30 tabs folic acid 1 mg tablet 1 mg PO DAILY #30 tabs 10/04/23 hydroxyzine HCl 25 mg tablet 25 mg PO Q6H PRN Anxiety #30 tabs 10/04/23 lorazepam 0.5 mg tablet 0.5 mg PO BID PRN 10/04/23 Anxiety/Restlessness #15 tabs multivitamin (Daily-Mayito tablet) 1 tab PO DAILY #30 tabs 10/04/23 thiamine mononitrate (vit B1) 100 100 mg PO BID #60 tabs 10/04/23 mg tablet trazodone 50 mg tablet 50 mg PO BEDTIME #30 tabs 10/04/23 white petrolatum-mineral oil 1 appl topical BID PRN Dry Skin 10/04/23 topical cream (Dermacerin topical #100 grams cream) Mental Status Exam Mental Status Exam Patient Appearance: Appropriate Patient Orientation: Person, Place, Time and Situation Level of Consciousness: Alert Patient Behavior: Talkative and Good Eye Contact Mood Description: Calm Affect Description: Calm Patient Cognition Impaired: Yes Ability to Follow Directions: Good Speech Pattern: Spontaneous Speech Memory Description: Remote Impaired Hallucinations: None Delusions: Not Present Thought Process: Distracted and Confusion Thought Content: positive for Circumstantial and positive for Suicidal Ideation (denies) Depressive Symptoms: Thoughts of /Suicide (denies) Judgement: Poor Data Data Completed and Pending Completed studies during hospitalization [Text1]: 09/29/23 08:35 WBC 7.0 RBC 4.51 Hgb 13.5 Hct 43.0 MCV 95.3 MCH 29.9 MCHC 31.4 RDW 13.6 Plt Count 242 D MPV 10.2 Immature Gran % (Auto) 0.3 Neut % (Auto) 60.7 Lymph % (Auto) 26.3 Crane % (Auto) 6.0 Eos % (Auto) 5.6 H Baso % (Auto) 1.1 Lymph # (Auto) 1.8 Crane # (Auto) 0.4 Eos # (Auto) 0.4 Baso # (Auto) 0.1 Abs Immat Gran (auto) 0.02 Absolute Neuts (auto) 4.2 Absolute Nucleated RBC 0.000 Nucleated RBC % (auto) 0.0 Sodium 144 Potassium 4.6 Chloride 108 Carbon Dioxide 29 Anion Gap 12 BUN 20 H Creatinine 0.70 Estim Creat Clear Calc 73.4 Estimated GFR > 60 Random Glucose 83 Calcium 9.5 Total Bilirubin 0.4 AST 25 ALT 19 Alkaline Phosphatase 60 Total Protein 7.0 Albumin 3.7 08/24/23 15:14 Urine clean catch - Urine chase top Urine Culture - Final Escherichia coli Imaging Diagnostic Imaging Impressions Ankle X-Ray 09/17/23 14:38 IMPRESSION: Global demineralization. Advanced osteoarthritis left knee. Left ankle soft tissue swelling, question joint effusion. No acute bony pathology. Calcaneal spurring. Knee X-Ray 09/17/23 14:38 IMPRESSION: Global demineralization. Advanced osteoarthritis left knee. Left ankle soft tissue swelling, question joint effusion. No acute bony pathology. Calcaneal spurring. DS: Summary Hospital Course Hospital Course: Admission to adult psychiatry for exacerbation of mild cognitive impairment, major depression. Pt sent via [facility] as she is unable to care for herself in her home, has been found to have unsafe living conditions and has exhibited poor judgment in self-care placing herself at risk. Pt has a reported history of alcohol use disorder. She reportedly spent one month at [facility] approximately 4 months ago s/p suicide attempt where she put her head in an oven in her home and had carbon monoxide poisoning. Records were requested but not received from that admission. Her neighbor, also her health care proxy has been involved and reports pt is unable to care for herself in the community. Her home is being taken by the [facility] due to nonpayment of taxes. Pt, once admitted had ongoing medical and medication evaluation. She reported a 40lb weight loss prior to admission that was due to her going on a diet. She was completely cooperative in the milieu, attended groups, accepted medications and accepted support from the team and offered support to her peers. Cognitive impairment symptoms were evident. Family was contacted, namely her brother living in the [place] and he was supportive and involved in her care. She was deemed appropriate for [facility] level of care and was transferred to [facility] and will follow up with their assigned provider group, both medical and psychiatric for ongoing psychiatric care. Status at Discharge Functional status at discharge: independent ambulation Overall status at discharge: patient is not back to baseline Time Spent with Patient Time attestation: Total time managing care of this patient today ____ minutes. Time spent: Less than 30 minutes Discharge Plan Discharge Anticipated Discharge Date/Time: 10/05/23 12:00 Patient Disposition: Xfer Other Discharge Diagnosis: Recurrent Major Depression Mild Cognitive Impairment Referrals: [facility]ucky De Los Santos [facility] [Other] - 10/05/23 9:30 am (Patient accepted to [facility] Patient will receive Primary care and Psychiatry services through [facility].) Physician,Nonstaff [Primary Care Provider] - 1 Week (No PCP appointment made. Pt to be seen by Chucky De Los Santos provider. ) Discharge Medications: New acetaminophen 325 mg Tablet 650 mg PO Q6H PRN (Reason: Headache/Pain Mild Scale (1-3)) Qty: 60 0RF trazodone 50 mg Tablet 50 mg PO BEDTIME Qty: 30 0RF atorvastatin 10 mg Tablet 10 mg PO BEDTIME Qty: 30 0RF lorazepam 0.5 mg Tablet 0.5 mg PO BID PRN (Reason: Anxiety/Restlessness) Qty: 15 0RF folic acid 1 mg Tablet 1 mg PO DAILY Qty: 30 0RF hydroxyzine HCl 25 mg Tablet 25 mg PO Q6H PRN (Reason: Anxiety) Qty: 30 0RF capsaicin 0.025 % Cream 1 appl topical QID PRN (Reason: knee pain) Qty: 120 0RF Protocol: Apply to: Apply to: knees cholecalciferol (vitamin D3) [Vitamin D3] 10 mcg (400 unit) Tablet 10 mcg PO DAILY Qty: 30 0RF Dermacerin Cream 1 appl topical BID PRN (Reason: Dry Skin) Qty: 100 0RF Protocol: Apply to: Apply to: Facial rash multivitamin [Daily-Mayito] Tablet 1 tab PO DAILY Qty: 30 0RF thiamine mononitrate (vit B1) 100 mg Tablet 100 mg PO BID Qty: 60 0RF Continued escitalopram oxalate 10 mg tablet 10 mg PO DAILY Qty: 30 0RF aripiprazole 10 mg tablet 10 mg PO QPM Qty: 30 0RF Eliquis 5 mg tablet 5 mg PO BID Qty: 60 0RF Discontinued trazodone 100 mg Tablet 100 mg PO BEDTIME Discharge Orders: Discharge Order (Routine); Ordered 10/05/23 Ordered By: Gris Guzman Diet: Advance to usual diet Activity on Discharge: As tolerated Stand Alone Forms: Patient Portal Discharge page, Community Support Care Plan Goals: Mood and Behavioral Stabilization Health Concerns: Mood and Behavioral Stabilization Plan of Treatment: Attend scheduled appointments Take medications as directed Scheduled discharge/transfer to [address] [address]. Assessment: Scheduled discharge to middle or intermediate [facility] principal care placement Discharge Date/Time: 10/05/23 09:50
== END 2023-10-05 09:50 | disposition other institution (70) | DRG 885 ==
LOC: HO.ED 08-25 07:36 → HO.PM5 08-25 08:51
PROVIDERS: Social Worker; Admitting Provider Psychiatry & Neurology Psychiatry; Emergency Provider Emergency Medicine; Visit Provider Clinical Nurse Specialist Psychiatric/Mental Health, Adult
DX: F33.2 Major depressive disorder, recurrent severe without psychotic features (principal); F17.210 Nicotine dependence, cigarettes, uncomplicated; Z71.6 Tobacco abuse counseling; R21 Rash and other nonspecific skin eruption; Z23 Encounter for immunization; G31.84 Mild cognitive impairment of uncertain or unknown etiology; Z20.822 Contact with and (suspected) exposure to COVID-19; Z91.51 Personal history of suicidal behavior; Z79.899 Other long term (current) drug therapy
CPT/HCPCS: 36415; 73564; 73600; 80048; 80053; 80061; 80076; 80143; 80179; 80307; 81001; 81003; 82140; 82306; 82607; 82746; 82947; 83036; 83540; 83735; 84443; 85025; 86780; 87086; 87088; 87186; 87389; 87635; 90686; 93005; 99285

== ENCOUNTER → 2023-08-24 16:42 | Outpatient (BNV) | payer MEDICARE, SELFPAY | PROVIDERS: Admitting Provider Psychiatry & Neurology Psychiatry; Emergency Provider Emergency Medicine; Visit Provider Internal Medicine Cardiovascular Disease | DX: R45.851 Suicidal ideations (principal) | CPT/HCPCS: 93010 ==

== ENCOUNTER → 2023-08-25 08:42 | Outpatient (BNV) | payer MEDICARE, SELFPAY | PROVIDERS: Admitting Provider Psychiatry & Neurology Psychiatry; Emergency Provider Emergency Medicine; Visit Provider Clinical Nurse Specialist Psychiatric/Mental Health, Adult | DX: F33.2 Major depressive disorder, recurrent severe without psychotic features (principal); G31.84 Mild cognitive impairment of uncertain or unknown etiology | CPT/HCPCS: 90792; 99231; 99232; 99238 ==

== ENCOUNTER → 2023-08-25 08:42 | Outpatient (BNV) | payer MEDICARE, SELFPAY | PROVIDERS: Admitting Provider Psychiatry & Neurology Psychiatry; Emergency Provider Emergency Medicine; Visit Provider Psychiatry & Neurology Psychiatry | DX: F33.2 Major depressive disorder, recurrent severe without psychotic features (principal); G31.84 Mild cognitive impairment of uncertain or unknown etiology | CPT/HCPCS: 99231 ==